=== PATIENT | female | born 1965 | race American Indian/Alaskan Native ===

== ENCOUNTER 2018-12-20 18:54 | Emergency (ER) | payer SELFPAY ==
[2018-12-20 18:54] VITALS: BMI 64.4
[2018-12-20 19:31] VITALS: RESP 18; TEMP 98.6
--- NOTE | 2018-12-20 19:34 | ED PDOC ---
Arrival/HPI - General Chief Complaint: Trauma Time Seen by Provider: 12/20/18 19:22 Historian: Patient - History of Present Illness Narrative History of Present Illness (Text): 12/20/18 19:33 53 y/o F with h/o asthma, COPD, with attacks every 3-4 months, never intubated, active tobacco abuse, NIDDM, and Sleep apnea, presents to the ED for evaluation of bilateral knee discomfort s/p fall 2 days ago. Patient informs mechanical f all Wednesday on her legs with injury to her head and back. Patient denies any loss of consciousness at the time. Patient reports appropriate ambulation following the incident. Patient denies any other associated somatic complaints. Patient denies any fevers, chills, headache, dizziness, chest pain, shortness of breath, dyspnea on exertion, cough, abdominal pain, nausea, vomiting, diarrhea, back pain, neck pain, or any other complaint. Patient states she lives with her daughter and granddaughter in [facility]. Time/Duration: < week Symptom Onset: Gradual Symptom Course: Unchanged Activities at Onset: Light Context: Home Past Medical History - Provider Review Nursing Documentation Reviewed: Yes - Infectious Disease Hx of Infectious Diseases: None - Tetanus Immunization Tetanus Immunization: Unknown - Reproductive Currently : Unknown - Cardiac Hx Cardiac Disorders: Yes Hx Congestive Heart Failure: Yes - Pulmonary Hx Respiratory Disorders: Yes Hx Asthma: Yes Hx Bronchitis: Yes Hx Chronic Obstructive Pulmonary Disease (COPD): Yes Hx Sleep Apnea: Yes - Musculoskeletal/Rheumatological Hx Falls: No - Psychiatric Hx Depression: No Hx Emotional Abuse: No Hx Physical Abuse: No Hx Substance Use: No - Suicidal Assessment Feels Threatened In Home Enviroment: No Family/Social History - Physician Review Nursing Documentation Reviewed: Yes Family/Social History: No Known Family HX Smoking Status: Light Smoker < 10 Cigarettes Daily Hx Alcohol Use: No Hx Substance Use: No Allergies/Home Meds Allergies/Adverse Reactions: Allergies No Known Allergies Allergy (Verified 12/22/13 17:23) Home Medications: Home Meds Medication Instructions Recorded Confirmed Albuterol 0.09 mg IH Q4 12/22/13 12/22/13 Metformin Hydrochloride [Metformin] 500 mg PO BID 12/22/13 12/22/13 Review of Systems - Physician Review All systems were reviewed & negative as marked: Yes - Review of Systems Constitutional: absent: Fevers Eyes: absent: Vision Changes, Photophobia ENT: absent: Hearing Changes Respiratory: absent: SOB, Cough Cardiovascular: absent: Chest Pain Gastrointestinal: absent: Abdominal Pain, Diarrhea, Nausea, Vomiting Genitourinary Female: absent: Dysuria, Urine Output Changes Musculoskeletal: Arthralgias (Bilateral knee discomfort). absent: Back Pain, Neck Pain Skin: absent: Rash Neurological: absent: Headache, Dizziness Psychiatric: absent: Anxiety Physical Exam Vital Signs Reviewed: Yes Vital Signs Temp Pulse Resp BP Pulse Ox 12/20/18 19:24 98.6 F 106 H 18 93/58 L 93 L Temperature: Afebrile Blood Pressure: Hypotensive Pulse: Tachycardic Respiratory Rate: Normal Appearance: Positive for: Non-Toxic, Comfortable, Other (Morbidly obese) Pain Distress: None Mental Status: Positive for: Alert and Oriented X 3 - Systems Exam Head: Present: Atraumatic, Normocephalic Pupils: Present: PERRL Conjunctiva: Present: Normal Nose (Internal): Present: Normal Inspection Neck: Present: Normal Range of Motion. No: Meningeal Signs, MIDLINE TENDERNESS Respiratory/Chest: Present: Clear to Auscultation, Good Air Exchange. No: Respiratory Distress, Accessory Muscle Use Cardiovascular: Present: Regular Rate and Rhythm, Normal S1, S2. No: Murmurs Abdomen: No: Tenderness, Distention, Peritoneal Signs Back: Present: Normal Inspection. No: CVA Tenderness, Midline Tenderness, Paraspinal Tenderness Upper Extremity: Present: Normal Inspection. No: Cyanosis, Edema Lower Extremity: Present: NORMAL PULSES, Tenderness (anterior right knee tenderness), Neurovascularly Intact, Other (negative thompsons). No: Edema Neurological: Present: GCS=15, CN II-XII Intact, Speech Normal Skin: Present: Warm, Dry, Normal Color. No: Rashes Psychiatric: Present: Alert, Oriented x 3, Normal Insight, Normal Concentration Medical Decision Making ED Course and Treatment: 12/20/18 19:46 Impression: 53 year old female presents to the ED complaining of bilateral knee discomfort s/p fall. N/V intact to b/l LE. No complaints of hip or ankle pain. No abrasions noted. Pt noted mild ARMENTA. No blood thinner however and pt with normal neuro exam. Walking well in NAD. Plan: -- Tylenol -- X-ray of right knee -- X-ray of left knee -- Reassess and disposition Prior Visits: Notes and results from previous visits were reviewed. Progress Notes: 12/20/18 20:44 Xray unremarkable per my read pain well controlled per pt, walking well Repeat neuro exam unremarkable, remains n/v intact in b/l LE Disposition/Present on Arrival - Present on Arrival Any Indicators Present on Arrival: No History of DVT/PE: No History of Uncontrolled Diabetes: No Urinary Catheter: No History of Decub. Ulcer: No History Surgical Site Infection Following: None - Disposition Have Diagnosis and Disposition been Completed?: Yes Diagnosis: Fall, Knee pain, bilateral Disposition Time: 20:49 Patient Problems: Current Active Problems Problem Status Onset Fall Acute Knee pain, bilateral Acute Condition: GOOD Discharge Instructions (ExitCare): Preventing Falls in the Older Adult, Getting Up From a Fall, Knee Pain (DC) Additional Instructions: MARY WHITTAKER, thank you for letting us take care of you today. Your provider was Tank Nicole and you were treated for FALL. The emergency medical care you received today was directed at your acute symptoms. If you were prescribed any medication, please fill it and take as directed. It may take several days for your symptoms to resolve. Return to the Emergency Department if your symptoms worsen, do not improve, or if you have any other problems. Please contact your doctor or call one of the physicians/clinics you have been referred to that are listed on the Patient Visit Information form that is includ ed in your discharge packet. Bring any paperwork you were given at discharge with you along with any medications you are taking to your follow up visit. Our treatment cannot replace ongoing medical care by a primary care provider outside of the emergency department. Thank you for allowing the [facility] team to be part of your care today. If you had an X-Ray or CT scan: A Radiologist will review the ED reading if any change in treatment is needed we will contact you. If you had a blood, urine, or wound culture: It will take several days for the results, if any change in treatment is needed we will contact you. If you had an STI test: It will take 48 hours for the results. Please call after 1 week if you have not heard back. Referrals: Chelo Villalpando MD [Medical Doctor] - Follow up with [facility] [Outside] - Follow up with [facility] [Outside] - Follow up with primary [facility] [Outside] - Follow up with primary Forms: Qinti (Icelandic)
[2018-12-20 21:24] VITALS: BP 110/68; PULSE 89; O2SAT 95
--- NOTE | 2018-12-21 08:00 | RAD ---
Date of service: 12/20/2018 PROCEDURE: Left Knee Radiographs. HISTORY: Pain. COMPARISON: None. FINDINGS: BONES: No acute fracture or destructive bony lesion identified. JOINTS: No subluxation or dislocation. Gross joint space narrowing seen at the patellofemoral and medial femorotibial compartments with osteophyte development appear prominent in all 3 joint compartments compatible with advanced osteoarthritis. JOINT EFFUSION: None. OTHER FINDINGS: None. IMPRESSION: Advanced tricompartmental osteoarthritis. No acute fracture or dislocation identified.
--- NOTE | 2018-12-21 08:01 | RAD ---
Date of service: 12/20/2018 PROCEDURE: Right Knee Radiographs. HISTORY: fall COMPARISON: None. FINDINGS: BONES: No acute fracture or destructive bony lesion identified. JOINTS: Marked joint space narrowing, articular cortical sclerosis and osteophyte development is seen all 3 joint compartments compatible with advanced osteoarthritis. JOINT EFFUSION: None. OTHER FINDINGS: None. IMPRESSION: Advanced tricompartmental osteoarthritis. No acute fracture dislocation appreciated.
== END 2018-12-20 20:55 | disposition home or self-care (01) ==
LOC: ED 18:54
DX: M25.561 Pain in right knee (principal); M25.562 Pain in left knee; F17.210 Nicotine dependence, cigarettes, uncomplicated

== ENCOUNTER 2019-01-25 01:31 | Inpatient (IN) | payer MEDICAID, OTHER ==
--- NOTE | 2019-01-25 02:06 | ED PDOC ---
Arrival/HPI - General Chief Complaint: Lower Extremity Problem/Injury Time Seen by Provider: 01/25/19 01:53 Historian: Patient - History of Present Illness Narrative History of Present Illness (Text): 01/25/19 01:59 Cece Saleem is a 53 year old female, whose past medical history includes asthma, COPD, diabetes, sleep apnea, and morbid obesity, who presents to the emergency department brought in by EMS complaining of leg swelling. Patient reports she has been experiencing lower extremity swelling for the past few days and notes yesterday her left leg gave out from under her. Patient states she has been unable to ambulate. Patient also notes ulcers to her right ankle. Patient states she does not currently have a PMD and has not taken any of her medications in "a while." Patient denies any fever, chills, chest pain, sh ortness of breath, abdominal pain, nausea, vomiting, back pain, neck pain, headache, dizziness, or any other complaints. Symptom Onset: Gradual Symptom Course: Unchanged Activities at Onset: Light Context: Home Past Medical History - Provider Review Nursing Documentation Reviewed: Yes - Infectious Disease Hx of Infectious Diseases: None - Tetanus Immunization Tetanus Immunization: Unknown - Cardiac Hx Cardiac Disorders: Yes Hx Congestive Heart Failure: Yes Hx Hypertension: Yes - Pulmonary Hx Respiratory Disorders: Yes Hx Asthma: Yes Hx Bronchitis: Yes Hx Chronic Obstructive Pulmonary Disease (COPD): Yes Hx Sleep Apnea: Yes - Endocrine/Metabolic Hx Diabetes Mellitus Type 2: Yes - Musculoskeletal/Rheumatological Hx Falls: No - Psychiatric Hx Depression: No Hx Emotional Abuse: No Hx Physical Abuse: No Hx Substance Use: No - Surgical History Hx Section: Yes (x2) - Anesthesia Hx Anesthesia: No - Suicidal Assessment Feels Threatened In Home Enviroment: No Family/Social History - Physician Review Nursing Documentation Reviewed: Yes Family/Social History: Unknown Family HX Smoking Status: Current Some Days Smoker Hx Alcohol Use: No Hx Substance Use: No Allergies/Home Meds Allergies/Adverse Reactions: Allergies No Known Allergies Allergy (Verified 12/22/13 17:23) Home Medications: Home Meds Medication Instructions Recorded Confirmed Albuterol 0.09 mg IH Q4 12/22/13 12/22/13 Metformin Hydrochloride [Metformin] 500 mg PO BID 12/22/13 12/22/13 Review of Systems - Physician Review All systems were reviewed & negative as marked: Yes - Review of Systems Constitutional: Normal. absent: Fevers Eyes: Normal ENT: Normal Respiratory: Normal. absent: SOB, Cough Cardiovascular: Normal. absent: Chest Pain Gastrointestinal: Normal. absent: Abdominal Pain, Diarrhea, Nausea, Vomiting Genitourinary Female: Normal. absent: Dysuria, Frequency, Hematuria, Urine Output Changes Musculoskeletal: Other (+bilateral leg swelling) Skin: Normal. absent: Rash Neurological: Normal. absent: Headache, Dizziness Endocrine: Normal Hemo/Lymphatic: Normal Psychiatric: Normal Physical Exam Vital Signs Reviewed: Yes Vital Signs Temp Pulse Resp BP Pulse Ox 01/25/19 01:37 98.2 F 106 H 21 136/71 99 Temperature: Afebrile Blood Pressure: Normal Pulse: Regular Respiratory Rate: Normal Appearance: Positive for: Non-Toxic, Other (Morbidly obese) Pain Distress: None Mental Status: Positive for: Alert and Oriented X 3 - Systems Exam Head: Present: Atraumatic, Normocephalic Pupils: Present: PERRL Extroacular Muscles: Present: EOMI Conjunctiva: Present: Normal Mouth: Present: Moist Mucous Membranes Neck: Present: Normal Range of Motion Respiratory/Chest: Present: Clear to Auscultation, Good Air Exchange. No: Respiratory Distress, Accessory Muscle Use Cardiovascular: Present: Regular Rate and Rhythm, Normal S1, S2. No: Murmurs Abdomen: No: Tenderness, Distention, Peritoneal Signs Back: Present: Normal Inspection Upper Extremity: Present: Normal Inspection. No: Cyanosis, Edema Lower Extremity: Present: Swelling (Bilateral swelling to bilateral lower extremities with skin scaling), Other (Ulcers to right ankle). No: Edema Neurological: Present: GCS=15, CN II-XII Intact, Speech Normal Skin: Present: Warm, Dry, Normal Color. No: Rashes Psychiatric: Present: Alert, Oriented x 3, Normal Insight, Normal Concentration Medical Decision Making ED Course and Treatment: 01/25/19 01:59 Impression: 53 year old female complaining of bilateral lower extremity swelling and ulcers to her right ankle. Plan: -- US Duplex Lower Extremties -- EKG -- CXR -- Labs, troponin -- Urinalysis, urine cultures -- Reassess and disposition Progress Notes: 01/25/19 02:30 Reviewed radiology, CXR shows no acute processes. US Duplex Lower Extremities preliminary read negative for DVT. 01/25/19 03:15 Case discussed with medical dir retort condenser attendant, who is aware and agrees with plan. Case discussed with Dr. Villalpando, who is aware and agrees with plan. Accepts pt in to hospitalist service. Pt admitted to [facility] for lower extremity cellulitis. 01/25/19 04:00 Reviewed EKG, sinus tachycardia at [address]-segment elevations or depressions, no T-wave inversions, normal intervals. - Lab Interpretations I have reviewed the lab results: Yes - RAD Interpretation Mold Yard Supervisor: ED Physician - EKG Interpretation Interpreted by ED Physician: Yes Type: 12 lead EKG - Scribe Statement The provider has reviewed the documentation as recorded by the Chan Chávez Provider Scribe Attestation: All medical record entries made by the Scribe were at my direction and personally dictated by me. I have reviewed the chart and agree that the record accurately reflects my personal performance of the history, physical exam, medical decision making, and the department course for this patient. I have also personally directed, reviewed, and agree with the discharge instructions and disposition. Disposition/Present on Arrival - Present on Arrival Any Indicators Present on Arrival: No History of DVT/PE: No History of Uncontrolled Diabetes: No Urinary Catheter: No History of Decub. Ulcer: No History Surgical Site Infection Following: None - Disposition Have Diagnosis and Disposition been Completed?: Yes Diagnosis: Cellulitis of both lower extremities Disposition: HOSPITALIZED Disposition Time: 03:15 Condition: FAIR
[2019-01-25 02:52] LABS: BASO # 0.01 K/mm3 (0.0-2.0); BASO % 0.1 % (0.0-3.0); EOS # 0.3 (0.0-0.7); EOS % 2.8 % (1.5-5.0); HEMOGLOBIN 12.2 g/dL (12.0-16.0); LYMPH # 0.7 (1.2-3.4); MEAN CELL VOLUME 81.1 fl (80.0-105.0); MEAN CORPUSCULAR HEMOGLOBIN 24.5 pg (25.0-35.0); MEAN CORPUSCULAR HGB CONC 30.2 g/dl (31.0-37.0); MONO # 1.1 (0.1-0.6); MONO % 10.7 % (1.0-6.0); RBC 4.98 10^6/uL (3.5-6.1); RED CELL DISTRIBUTION WIDTH 17.8 % (11.5-14.5); WHITE BLOOD COUNT 10.2 10^3/uL (4.5-11.0)
[2019-01-25 02:53] LABS: ALB/GLOB RATIO 0.9 (1.1-1.8); ALBUMIN 3.8 g/dL (3.0-4.8); BLOOD UREA NITROGEN 10 mg/dL (7-21); CALCIUM 9.1 mg/dL (8.4-10.5); GFR NON-AFRICAN AMERICAN > 60
[2019-01-25 02:55] LABS: INR 1.26; PARTIAL THROMBOPLASTIN TIME 39.3 Seconds (26.9-38.3)
[2019-01-25 02:56] LABS: ALT/SGPT 17 U/L (7-56); AST/SGOT 29 U/L (14-36)
[2019-01-25 03:04] LABS: TROPONIN I < 0.01 ng/mL
[2019-01-25] MEDS ORDERED: Piperacillin/Tazobact 3.375 gm 100 ML IVPB STA (03:10)
[2019-01-25] MEDS ORDERED: Vancomycin 1gm in NS 250ml 1 GM/250 ML BAG IVPB STA (03:10)
[2019-01-25] MEDS ORDERED: Levalbuterol 1.25 MG/3 ML Inhal Soln UD IH PRN (03:28)
[2019-01-25] MEDS ORDERED: Dextrose 50% SYRINGE Inj (50 ml) IV PRN (03:29)
--- NOTE | 2019-01-25 03:36 | CP.PCM.HP ---
<Khadar Kim - Last Filed: 01/25/19 05:04> History of Present Illness - History of Present Illness History of Present Illness: Khadar Kim DO, PGY-1 Hospitalist Admission History and Physical for Dr. Villalpando CC: LE swelling/redness/pain HPI: Patient is a 53 year old female with PMH of COPD, WINTER, BMI of 64, and DM2 (last A1c 6.9) presents with a complaint of b/l LE swelling and redness worsening over the past 3 days. She states that yesterday her R leg gave out and she almost fell. She states it has been difficult to ambulate because of the increased swelling and pain. She states she is normally able to ambulate and that her assists her at home with some ADLs. She states she has not seen a primary care physician in over a year because she no longer has insurance. She admits to non-compliance with DM2 and COPD medications because she cannot afford these medications. She reports chronic SOB with exertion but denies fever/chills, CP, cough, abd pain/nausea/vomiting, or urinary complaints. 12 point ROS was otherwise negative except as specified above. PMD: none Past Medical History: COPD, WINTER, BMI of 64, and DM2 (last A1c 6.9) Past Surgical History: none Allergies: NKA Home medications: previously took metformin 500 mg BID but has not taken it c onsistently for years Family History: reviewed, non-contributory Social History: admits to smoking 1 PPD for the past 30 years, denies alcohol or illicit drug use Present on Admission - Present on Admission Any Indicators Present on Admission: Yes History of DVT/PE: No History of Uncontrolled Diabetes: Yes Urinary Catheter: No Decubitus Ulcer Present: Yes Past Patient History - Infectious Disease Hx of Infectious Diseases: None - Tetanus Immunizations Tetanus Immunization: Unknown - Past Social History Smoking Status: Current Some Days Smoker - CARDIAC Hx Cardiac Disorders: Yes Hx Congestive Heart Failure: Yes Hx Hypertension: Yes - PULMONARY Hx Respiratory Disorders: Yes Hx Asthma: Yes Hx Bronchitis: Yes Hx Chronic Obstructive Pulmonary Disease (COPD): Yes Hx Sleep Apnea: Yes - ENDOCRINE/METABOLIC Hx Diabetes Mellitus Type 2: Yes - MUSCULOSKELETAL/RHEUMATOLOGICAL Hx Falls: No - PSYCHIATRIC Hx Depression: No Hx Emotional Abuse: No Hx Physical Abuse: No Hx Substance Use: No - SURGICAL HISTORY Hx Section: Yes (x2) - ANESTHESIA Hx Anesthesia: No Meds Allergies/Adverse Reactions: Allergies Allergy/AdvReac Type Severity Reaction Status Date / Time No Known Allergies Allergy Verified 12/22/13 17:23 Physical Exam - Constitutional Appears: Unkempt, Chronically Ill Additional comments: morbidly obese, appears uncomfortable - Head Exam Head Exam: ATRAUMATIC, NORMOCEPHALIC - Eye Exam Eye Exam: EOMI, PERRL. absent: Scleral icterus - ENT Exam ENT Exam: Mucous Membranes Dry - Neck Exam Neck exam: Negative for: Lymphadenopathy Additional comments: thick neck - Respiratory Exam Respiratory Exam: Wheezes (faint end expiratory wheezes b/l). absent: Accessory Muscle Use, Rales, Rhonchi, Respiratory Distress - Cardiovascular Exam Cardiovascular Exam: REGULAR RHYTHM, RRR, +S1, +S2. absent: Diastolic murmur, Gallop, Rubs, Systolic Murmur - GI/Abdominal Exam GI & Abdominal Exam: Mass (mass palpated R mid abdominal region), Normal Bowel Sounds, Tenderness (diffuse tenderness to palpation). absent: Guarding Additional comments: Obese with striae, R sided wound under abdominal folds - Exam External exam: Erythema, Lesions Additional comments: Suprapubic region appears edematous, R-sided foul smelling discharge between R abdomen and leg - Extremities Exam Extremities exam: Positive for: pedal edema (b/l pitting edema), tenderness (diffusely tender to palpation of b/l LE), pedal pulses present. Negative for: full ROM Additional comments: Wound seen on R medial foot approximately 1 cm, R lateral foot wound 3-4 cm, wound on posterior R thigh measures approximately 1 cm. Diffuse xerosis cutis b/l. Poor hygiene. Venous stasis dermatitis. - Neurological Exam Neurological exam: Alert, Oriented x3 - Psychiatric Exam Psychiatric exam: Anxious - Skin Skin Exam: Erythema, Rash (b/l LE) Results - Vital Signs Recent Vital Signs: Last Vital Signs Temp 98.2 F 01/25/19 01:37 Pulse 106 H 01/25/19 01:37 Resp 21 01/25/19 01:37 BP 136/71 01/25/19 01:37 Pulse Ox 99 01/25/19 01:37 - Labs Result Diagrams: 01/25/19 02:23 01/25/19 02:23 Labs: Laboratory Results - last 24 hr 01/25/19 01/25/19 01/25/19 02:23 02:23 02:23 WBC 10.2 RBC 4.98 Hgb 12.2 Hct 40.4 MCV 81.1 MCH 24.5 L MCHC 30.2 L RDW 17.8 H Plt Count 208 MPV 10.0 Neut % (Auto) 79.4 H Lymph % (Auto) 7.0 L [place] % (Auto) 10.7 H Eos % (Auto) 2.8 Baso % (Auto) 0.1 Lymph # (Auto) 0.7 L [place] # (Auto) 1.1 H Eos # (Auto) 0.3 Baso # (Auto) 0.01 Absolute Neuts (auto) 8.11 H PT 14.0 H INR 1.26 APTT 39.3 H Sodium 137 Potassium 3.6 Chloride 96 L Carbon Dioxide 35 H Anion Gap 9 L BUN 10 Creatinine 0.9 Est GFR ( Amer) > 60 Est GFR (Non-Af Amer) > 60 Random Glucose 180 H Calcium 9.1 Total Bilirubin 0.8 AST 29 ALT 17 Alkaline Phosphatase 110 Troponin I < 0.01 Total Protein 7.9 Albumin 3.8 Globulin 4.2 Albumin/Globulin Ratio 0.9 L Assessment & Plan - Assessment and Plan (Free Text) Assessment: 53 yo F with PMH of COPD, WINTER, BMI of 64, and DM2 (last A1c 6.9) presents with worsening b/l LE edema, erythema presents with inability to ambulate because of LE swelling. She is admitted for management of b/l LE cellulitis/wounds. Plan: B/l LE Cellulitis Afebrile, no leukocytosis but wounds are non-healing Received one dose of vanc/zosyn in ED F/u blood, urine, wound cx. Wound care consult placed, all recs appreciated Podiatry consult placed for foot care/management of 2 foot ulcers, all recs appreciated F/u procal, TSH, vitamin D levels B/l LE doppler US preliminary read negative for DVT, confirm official read ID consult placed, all recs appreciated Foot/posterior thigh ulcers F/u wound cx x 3 Wound care consult placed, all recs appreciated Poorly controlled DM2 ISS while admitted F/u A1c result COPD Xopenex PRN for SOB No active issues WINTER Likely has component of obesity hypoventilation syndrome Has not used CPAP or other device regularly Pulmonology consult placed, all recs appreciated Tobacco abuse Nicotine patch PRN Advise patient regularly on importance of abstinence BMI 64 [employer] Consultant referral placed, all recs appreciated Will need counseling regarding importance of weight loss DVT/GI PPX: Lovenox/protonix Full Code HH, diabetic diet Monitor on med/surg Patient seen, examined with, and plan discussed with my attending Dr. Irasema Kim D.O. IM Resident PGY-1 <Chelo Villalpando - Last Filed: 01/25/19 07:29> Results - Vital Signs Recent Vital Signs: Last Vital Signs Temp 98.2 F 01/25/19 01:37 Pulse 107 H 01/25/19 04:59 Resp 20 01/25/19 04:59 BP 118/63 01/25/19 04:00 Pulse Ox 96 01/25/19 04:00 - Labs Result Diagrams: 01/25/19 02:23 01/25/19 02:23 Labs: Laboratory Results - last 24 hr 01/25/19 01/25/19 01/25/19 02:23 02:23 02:23 WBC 10.2 RBC 4.98 Hgb 12.2 Hct 40.4 MCV 81.1 MCH 24.5 L MCHC 30.2 L RDW 17.8 H Plt Count 208 MPV 10.0 Neut % (Auto) 79.4 H Lymph % (Auto) 7.0 L Oxford % (Auto) 10.7 H Eos % (Auto) 2.8 Baso % (Auto) 0.1 Lymph # (Auto) 0.7 L Oxford # (Auto) 1.1 H Eos # (Auto) 0.3 Baso # (Auto) 0.01 Absolute Neuts (auto) 8.11 H PT 14.0 H INR 1.26 APTT 39.3 H Sodium 137 Potassium 3.6 Chloride 96 L Carbon Dioxide 35 H Anion Gap 9 L BUN 10 Creatinine 0.9 Est GFR ( Amer) > 60 Est GFR (Non-Af Amer) > 60 Random Glucose 180 H Calcium 9.1 Phosphorus Magnesium Total Bilirubin 0.8 AST 29 ALT 17 Alkaline Phosphatase 110 Troponin I < 0.01 Total Protein 7.9 Albumin 3.8 Globulin 4.2 Albumin/Globulin Ratio 0.9 L Triglycerides Cholesterol LDL Cholesterol Direct HDL Cholesterol 01/25/19 02:23 WBC RBC Hgb Hct MCV MCH MCHC RDW Plt Count MPV Neut % (Auto) Lymph % (Auto) Oxford % (Auto) Eos % (Auto) Baso % (Auto) Lymph # (Auto) Oxford # (Auto) Eos # (Auto) Baso # (Auto) Absolute Neuts (auto) PT INR APTT Sodium Potassium Chloride Carbon Dioxide Anion Gap BUN Creatinine Est GFR ( Amer) Est GFR (Non-Af Amer) Random Glucose Calcium Phosphorus 3.6 Magnesium 2.2 Total Bilirubin AST ALT Alkaline Phosphatase Troponin I Total Protein Albumin Globulin Albumin/Globulin Ratio Triglycerides 70 Cholesterol 143 LDL Cholesterol Direct 75 HDL Cholesterol 35 Attending/Attestation - Attestation I have personally seen and examined this patient.: Yes I have fully participated in the care of the patient.: Yes I have reviewed all pertinent clinical information: Yes Notes (Text): 01/25/19 07:25 Pt seen with the resident by the bedside. Case discussed in detail. Agree with documentation,assessment and plan of treatment.
[2019-01-25] MEDS: Pantoprazole 40 mg EC Tab PO SCH (05:07)
[2019-01-25] MEDS: Sodium Chloride 0.9% 1,000 ML IV SCH (05:10)
[2019-01-25 06:28] VITALS: BMI 63.6
[2019-01-25] MEDS: Insulin Lispro (humaLOG) MEDIUM Coverage SC SCH ×4 (07:30→22:09)
--- NOTE | 2019-01-25 09:28 | CARD ---
APPROVED REPORT Date of service: 01/25/2019 EKG Measurement Heart [id number] <Conclusion> Sinus tachycardia Low voltage QRS Borderline ECG
[2019-01-25 09:35] LABS: ARTERIAL BLOOD GAS HCO3 29.7 mmol/L (21-28); ARTERIAL BLOOD GAS HEMOGLOBIN 12.3 g/dL (11.7-17.4); ARTERIAL BLOOD GAS O2 CAPACITY 16.2 mL/dl (16-24); ARTERIAL BLOOD GAS O2 CONTENT 15.2 ML/dl (15-23); ARTERIAL BLOOD GAS O2 SAT 93.7 % (95-98); ARTERIAL BLOOD GAS PCO2 49 mm/Hg (35-45); ARTERIAL BLOOD GAS PH 7.39 (7.35-7.45); ARTERIAL BLOOD GAS TCO2 31.2 mmol.L (22-28)
--- NOTE | 2019-01-25 11:02 | RAD ---
Date of service: 01/25/2019 HISTORY: Shortness of breath. COMPARISON: 12/22/2013. FINDINGS: LUNGS: No active pulmonary disease. PLEURA: No significant pleural effusion identified, no pneumothorax apparent. CARDIOVASCULAR: No atherosclerotic calcification present Normal. OSSEOUS STRUCTURES: No significant abnormalities. VISUALIZED UPPER ABDOMEN: Normal. OTHER FINDINGS: None. IMPRESSION: No active disease. No significant interval change compared to the prior examination(s).
[2019-01-25] MEDS ORDERED: Oxycodone/Acetaminophen 5/325 mg Tab PO ONE (11:30)
[2019-01-25] MEDS: Vancomycin 1gm in NS 250ml 1 GM/250 ML BAG IVPB SCH ×2 (11:34→21:17)
[2019-01-25] MEDS: Enoxaparin 40 mg Syringe SC SCH (11:43)
[2019-01-25] MEDS: Nystatin 100,000 Units/gm Topical Pow(15 gm) TOP SCH (12:46)
--- NOTE | 2019-01-25 13:55 | CP.PCM.CON ---
History of Present Illness - History of Present Illness History of Present Illness: PULMONARY CONSULT NOTE REASON FOR CONSULT: WINTER, OHS HPI Patient is 53yo female with PMHx of morbid obesity, BMI>60, COPD, WINTER, OHS, non compliant with CPAP, active smoker 1/2pk per day, presented with worsening LE edema. Pt reports she has not seen a physician in over year, has not taken any medications, and has been non compliant with CPAP; actively smoking. Pt reports she has gained 40-50lbs over the last year, and does not use her CPAP machine because of "malfunction with tubing" Denies fever, chills, cough, CP, palpitations, ARMENTA, dizziness. No other constitutional symptoms. PMhx as above PSHx as above Meds NONE FHx NC Social smokes 1/2pk per day, denies EtOH, drug use ROS as above Review of Systems - Review of Systems Review of Systems: As per HPI Past Patient History - Infectious Disease Hx of Infectious Diseases: None - Tetanus Immunizations Tetanus Immunization: Unknown - Past Social History Smoking Status: Current Some Days Smoker - CARDIAC Hx Cardiac Disorders: Yes Hx Congestive Heart Failure: Yes Hx Hypertension: Yes - PULMONARY Hx Chronic Obstructive Pulmonary Disease (COPD): Yes - NEUROLOGICAL Hx Neurological Disorder: No - HEENT Hx HEENT Problems: No - RENAL Hx Chronic Kidney Disease: No - ENDOCRINE/METABOLIC Hx Diabetes Mellitus Type 2: Yes - HEMATOLOGICAL/ONCOLOGICAL Hx Blood Disorders: No - INTEGUMENTARY Hx Dermatological Problems: No - MUSCULOSKELETAL/RHEUMATOLOGICAL Hx Falls: No - GASTROINTESTINAL Hx Gastrointestinal Disorders: No - GENITOURINARY/GYNECOLOGICAL Hx Genitourinary Disorders: No - PSYCHIATRIC Hx Depression: No Hx Emotional Abuse: No Hx Physical Abuse: No Hx Substance Use: No - SURGICAL HISTORY Hx Section: Yes (x2) - ANESTHESIA Hx Anesthesia: No Meds Allergies/Adverse Reactions: Allergies Allergy/AdvReac Type Severity Reaction Status Date / Time No Known Allergies Allergy Verified 12/22/13 17:23 - Medications Medications: Current Medications Acetaminophen (Tylenol 325mg Tab) 650 mg PO Q6H PRN PRN Reason: Pain, Mild (1-3) Last Admin: 01/25/19 05:08 Dose: 650 mg Dextrose (Dextrose 50% Inj) 0 ml IV STAT PRN; Protocol PRN Reason: Hypoglycemia Protocol Enoxaparin Sodium (Lovenox) 40 mg SC DAILY [facility]; Protocol Last Admin: 01/25/19 11:43 Dose: 40 mg Dextrose (Dextrose 5% In Water 1000 Ml) 1,000 mls @ 0 mls/hr IV .Q0M PRN; Protocol PRN Reason: Hypoglycemia Protocol Sodium Chloride (Sodium Chloride 0.9%) 1,000 mls @ 100 mls/hr IV .Q10H [facility] Last Admin: 01/25/19 05:10 Dose: 100 mls/hr Vancomycin HCl (Vancomycin 1gm) 1 gm in 250 mls @ 167 mls/hr IVPB Q12H [facility]; Protocol Last Admin: 01/25/19 11:34 Dose: 167 mls/hr Piperacillin Sod/Tazobactam Sod (Zosyn 3.375 In Ns 100ml) 100 mls @ 25 mls/hr IVPB Q8 [facility]; Protocol Stop: 01/26/19 01:59 Ibuprofen (Motrin Tab) 600 mg PO Q6H PRN PRN Reason: Pain, moderate (4-7) Insulin Human Lispro (Humalog Med) 0 units SC ACHS [facility]; Protocol Last Admin: 01/25/19 11:43 Dose: 1 unit Levalbuterol HCl (Xopenex) 1.25 mg IH Q2H PRN PRN Reason: Shortness of Breath Last Admin: 01/25/19 05:10 Dose: 1.25 mg Nicotine (Nicoderm Cq) 1 patch TD DAILY PRN PRN Reason: URGE TO SMOKE Nystatin (Nystop Topical Powder) 0 gm TOP BID [facility] Last Admin: 01/25/19 12:46 Dose: 1 applic Ondansetron HCl (Zofran Inj) 4 mg IVP Q6H PRN PRN Reason: Nausea/Vomiting Pantoprazole Sodium (Protonix Ec Tab) 40 mg PO 0600 [facility] Last Admin: 01/25/19 05:07 Dose: 40 mg Physical Exam - Constitutional Appears: Non-toxic, No Acute Distress, Chronically Ill - Head Exam Head Exam: NORMAL INSPECTION - Eye Exam Eye Exam: Normal appearance - ENT Exam ENT Exam: Mucous Membranes Moist - Neck Exam Neck exam: Positive for: Full Rom - Respiratory Exam Respiratory Exam: Clear to Auscultation Bilateral, NORMAL BREATHING PATTERN - Cardiovascular Exam Cardiovascular Exam: REGULAR RHYTHM, +S1, +S2 - GI/Abdominal Exam GI & Abdominal Exam: Normal Bowel Sounds, Soft - Extremities Exam Extremities exam: Positive for: normal inspection - Neurological Exam Neurological exam: Alert, Oriented x3 - Psychiatric Exam Psychiatric exam: Normal Affect - Skin Skin Exam: Normal Color, Warm Results - Vital Signs Recent Vital Signs: Last Vital Signs Temp 98.8 F 01/25/19 06:00 Pulse 107 H 01/25/19 06:00 Resp 20 01/25/19 06:00 BP 116/72 01/25/19 06:00 Pulse Ox 93 L 01/25/19 06:00 - Labs Result Diagrams: 01/25/19 02:23 01/25/19 02:23 Labs: Laboratory Results - last 24 hr 01/25/19 01/25/19 01/25/19 02:23 02:23 02:23 WBC 10.2 RBC 4.98 Hgb 12.2 Hct 40.4 MCV 81.1 MCH 24.5 L MCHC 30.2 L RDW 17.8 H Plt Count 208 MPV 10.0 Neut % (Auto) 79.4 H Lymph % (Auto) 7.0 L Wirt % (Auto) 10.7 H Eos % (Auto) 2.8 Baso % (Auto) 0.1 Lymph # (Auto) 0.7 L [place]irt # (Auto) 1.1 H Eos # (Auto) 0.3 Baso # (Auto) 0.01 Absolute Neuts (auto) 8.11 H PT 14.0 H INR 1.26 APTT 39.3 H pCO2 pO2 HCO3 ABG pH ABG Total CO2 ABG O2 Saturation ABG O2 Content ABG Base Excess ABG Hemoglobin ABG Carboxyhemoglobin POC ABG HHb (Measured) ABG Methemoglobin ABG O2 Capacity Hgb O2 Saturation FiO2 Sodium 137 Potassium 3.6 Chloride 96 L Carbon Dioxide 35 H Anion Gap 9 L BUN 10 Creatinine 0.9 Est GFR ( Amer) > 60 Est GFR (Non-Af Amer) > 60 POC Glucose (mg/dL) Random Glucose 180 H Hemoglobin A1c Calcium 9.1 Phosphorus Magnesium Total Bilirubin 0.8 AST 29 ALT 17 Alkaline Phosphatase 110 Troponin I < 0.01 NT-Pro-B Natriuret Pep Total Protein 7.9 Albumin 3.8 Globulin 4.2 Albumin/Globulin Ratio 0.9 L Triglycerides Cholesterol LDL Cholesterol Direct HDL Cholesterol 25-OH Vitamin D Total TSH 3rd Generation 01/25/19 01/25/19 01/25/19 02:23 02:23 08:25 WBC RBC Hgb Hct MCV MCH MCHC RDW Plt Count MPV Neut % (Auto) Lymph % (Auto) Wirt % (Auto) Eos % (Auto) Baso % (Auto) Lymph # (Auto) Wirt # (Auto) Eos # (Auto) Baso # (Auto) Absolute Neuts (auto) PT INR APTT pCO2 pO2 HCO3 ABG pH ABG Total CO2 ABG O2 Saturation ABG O2 Content ABG Base Excess ABG Hemoglobin ABG Carboxyhemoglobin POC ABG HHb (Measured) ABG Methemoglobin ABG O2 Capacity Hgb O2 Saturation FiO2 Sodium Potassium Chloride Carbon Dioxide Anion Gap BUN Creatinine Est GFR ( Amer) Est GFR (Non-Af Amer) POC Glucose (mg/dL) Random Glucose Hemoglobin A1c 9.0 H Calcium Phosphorus 3.6 Magnesium 2.2 Total Bilirubin AST ALT Alkaline Phosphatase Troponin I NT-Pro-B Natriuret Pep Total Protein Albumin Globulin Albumin/Globulin Ratio Triglycerides 70 Cholesterol 143 LDL Cholesterol Direct 75 HDL Cholesterol 35 25-OH Vitamin D Total TSH 3rd Generation 2.01 01/25/19 01/25/19 01/25/19 08:25 09:15 11:16 WBC RBC Hgb Hct MCV MCH MCHC RDW Plt Count MPV Neut % (Auto) Lymph % (Auto) [place]irt % (Auto) Eos % (Auto) Baso % (Auto) Lymph # (Auto) Wirt # (Auto) Eos # (Auto) Baso # (Auto) Absolute Neuts (auto) PT INR APTT pCO2 49 H pO2 57.0 L HCO3 29.7 H ABG pH 7.39 ABG Total CO2 31.2 H ABG O2 Saturation 93.7 L ABG O2 Content 15.2 ABG Base Excess 3.8 H ABG Hemoglobin 12.3 ABG Carboxyhemoglobin 5.7 H POC ABG HHb (Measured) 5.9 H ABG Methemoglobin 0.8 ABG O2 Capacity 16.2 Hgb O2 Saturation 87.6 L FiO2 21.0 Sodium Potassium Chloride Carbon Dioxide Anion Gap BUN Creatinine Est GFR ( Amer) Est GFR (Non-Af Amer) POC Glucose (mg/dL) 165 H Random Glucose Hemoglobin A1c Calcium Phosphorus Magnesium Total Bilirubin AST ALT Alkaline Phosphatase Troponin I NT-Pro-B Natriuret Pep Total Protein Albumin Globulin Albumin/Globulin Ratio Triglycerides Cholesterol LDL Cholesterol Direct HDL Cholesterol 25-OH Vitamin D Total < 12.8 L TSH 3rd Generation 01/25/19 11:20 WBC RBC Hgb Hct MCV MCH MCHC RDW Plt Count MPV Neut % (Auto) Lymph % (Auto) Wirt % (Auto) Eos % (Auto) Baso % (Auto) Lymph # (Auto) Wirt # (Auto) Eos # (Auto) Baso # (Auto) Absolute Neuts (auto) PT INR APTT pCO2 pO2 HCO3 ABG pH ABG Total CO2 ABG O2 Saturation ABG O2 Content ABG Base Excess ABG Hemoglobin ABG Carboxyhemoglobin POC ABG HHb (Measured) ABG Methemoglobin ABG O2 Capacity Hgb O2 Saturation FiO2 Sodium Potassium Chloride Carbon Dioxide Anion Gap BUN Creatinine Est GFR ( Amer) Est GFR (Non-Af Amer) POC Glucose (mg/dL) Random Glucose Hemoglobin A1c Calcium Phosphorus Magnesium Total Bilirubin AST ALT Alkaline Phosphatase Troponin I NT-Pro-B Natriuret Pep 78.2 Total Protein Albumin Globulin Albumin/Globulin Ratio Triglycerides Cholesterol LDL Cholesterol Direct HDL Cholesterol 25-OH Vitamin D Total TSH 3rd Generation Assessment & Plan - Assessment and Plan (Free Text) Assessment: 53yo female with COPD, OHS, and WINTER WINTER OHS COPD Morbid Obesity LE edema Recommend: - supp o2 as needed, goal sat 90%, duonebs PRN - will need outpatient PFTs - CPAP, P=8, QHS - will need outpatient sleep titration study, given recent weight gain - nicotine patch - smoking cessation - nutrition consult - Follow up LE Duplex - Obtain ECHO - IV diuresis - DVT ppx
[2019-01-25] MEDS ORDERED: Piperacill/Tazo 4.5gm in NS 4.5 GM/100 ML BAG IVPB SCH (14:00)
--- NOTE | 2019-01-25 15:16 | CP.PCM.CON ---
History of Present Illness - History of Present Illness History of Present Illness: Infectious Disease Consultation: January 25, 2019 53yo female with PMHx of morbid obesity, BMI>60, COPD, WINTER, OHS, non compliant with CPAP, active smoker 1/2pk per day, presented with worsening LE edema. Pt s tates that she has not seen a physician in over year, has not taken any medications, and has been non compliant with CPAP; actively smoking. Pt reports she has gained 40-50lbs over the last year, and does not use her CPAP machine because of "malfunction with tubing". PMHx: morbid obesity, BMI>60, COPD, WINTER, OHS, non compliant with CPAP PSHx: none given Allergies: NKDA Social Hx: No EtOH, No illicit drug use Tobacco 1/2 ppd Active Medications Acetaminophen (Tylenol 325mg Tab) 650 mg PO Q6H PRN PRN Reason: Pain, Mild (1-3) Last Admin: 01/25/19 05:08 Dose: 650 mg Dextrose (Dextrose 50% Inj) 0 ml IV STAT PRN; Protocol PRN Reason: Hypoglycemia Protocol Enoxaparin Sodium (Lovenox) 40 mg SC DAILY [facility]; Protocol Last Admin: 01/25/19 11:43 Dose: 40 mg Dextrose (Dextrose 5% In Water 1000 Ml) 1,000 mls @ 0 mls/hr IV .Q0M PRN; Protocol PRN Reason: Hypoglycemia Protocol Sodium Chloride (Sodium Chloride 0.9%) 1,000 mls @ 100 mls/hr IV .Q10H [facility] Last Admin: 01/25/19 05:10 Dose: 100 mls/hr Vancomycin HCl (Vancomycin 1gm) 1 gm in 250 mls @ 167 mls/hr IVPB Q12H [facility]; Protocol Last Admin: 01/25/19 11:34 Dose: 167 mls/hr Piperacillin Sod/Tazobactam Sod (Zosyn 3.375 In Ns 100ml) 100 mls @ 25 mls/hr IVPB Q8 [facility]; Protocol Stop: 01/26/19 01:59 Ibuprofen (Motrin Tab) 600 mg PO Q6H PRN PRN Reason: Pain, moderate (4-7) Insulin Human Lispro (Humalog Med) 0 units SC ACHS [facility]; Protocol Last Admin: 01/25/19 11:43 Dose: 1 unit Levalbuterol HCl (Xopenex) 1.25 mg IH Q2H PRN PRN Reason: Shortness of Breath Last Admin: 01/25/19 05:10 Dose: 1.25 mg Nicotine (Nicoderm Cq) 1 patch TD DAILY PRN PRN Reason: URGE TO SMOKE Nystatin (Nystop Topical Powder) 0 gm TOP BID [facility] Last Admin: 01/25/19 12:46 Dose: 1 applic Ondansetron HCl (Zofran Inj) 4 mg IVP Q6H PRN PRN Reason: Nausea/Vomiting Pantoprazole Sodium (Protonix Ec Tab) 40 mg PO 0600 [facility] Last Admin: 01/25/19 05:07 Dose: 40 mg Family Hx: None given ROS: No fevers, chills, nausea, vomiting, diarrhea, headaches, dizziness, chest pain, abdominal pain, melena, hematuria, hematemesis, hematochezia, depression, anxiety Past Patient History - Infectious Disease Hx of Infectious Diseases: None - Tetanus Immunizations Tetanus Immunization: Unknown - Past Social History Smoking Status: Current Some Days Smoker - CARDIAC Hx Cardiac Disorders: Yes Hx Congestive Heart Failure: Yes Hx Hypertension: Yes - PULMONARY Hx Chronic Obstructive Pulmonary Disease (COPD): Yes - NEUROLOGICAL Hx Neurological Disorder: No - HEENT Hx HEENT Problems: No - RENAL Hx Chronic Kidney Disease: No - ENDOCRINE/METABOLIC Hx Diabetes Mellitus Type 2: Yes - HEMATOLOGICAL/ONCOLOGICAL Hx Blood Disorders: No - INTEGUMENTARY Hx Dermatological Problems: No - MUSCULOSKELETAL/RHEUMATOLOGICAL Hx Falls: No - GASTROINTESTINAL Hx Gastrointestinal Disorders: No - GENITOURINARY/GYNECOLOGICAL Hx Genitourinary Disorders: No - PSYCHIATRIC Hx Depression: No Hx Emotional Abuse: No Hx Physical Abuse: No Hx Substance Use: No - SURGICAL HISTORY Hx Section: Yes (x2) - ANESTHESIA Hx Anesthesia: No Meds Allergies/Adverse Reactions: Allergies Allergy/AdvReac Type Severity Reaction Status Date / Time No Known Allergies Allergy Verified 12/22/13 17:23 - Medications Medications: Current Medications Acetaminophen (Tylenol 325mg Tab) 650 mg PO Q6H PRN PRN Reason: Pain, Mild (1-3) Last Admin: 01/25/19 05:08 Dose: 650 mg Dextrose (Dextrose 50% Inj) 0 ml IV STAT PRN; Protocol PRN Reason: Hypoglycemia Protocol Enoxaparin Sodium (Lovenox) 40 mg SC DAILY [facility]; Protocol Last Admin: 01/25/19 11:43 Dose: 40 mg Dextrose (Dextrose 5% In Water 1000 Ml) 1,000 mls @ 0 mls/hr IV .Q0M PRN; Protocol PRN Reason: Hypoglycemia Protocol Sodium Chloride (Sodium Chloride 0.9%) 1,000 mls @ 100 mls/hr IV .Q10H [facility] Last Admin: 01/25/19 05:10 Dose: 100 mls/hr Vancomycin HCl (Vancomycin 1gm) 1 gm in 250 mls @ 167 mls/hr IVPB Q12H [facility]; Protocol Last Admin: 01/25/19 11:34 Dose: 167 mls/hr Piperacillin Sod/Tazobactam Sod (Zosyn 3.375 In Ns 100ml) 100 mls @ 25 mls/hr IVPB Q8 [facility]; Protocol Stop: 01/26/19 01:59 Ibuprofen (Motrin Tab) 600 mg PO Q6H PRN PRN Reason: Pain, moderate (4-7) Insulin Human Lispro (Humalog Med) 0 units SC ACHS [facility]; Protocol Last Admin: 01/25/19 11:43 Dose: 1 unit Levalbuterol HCl (Xopenex) 1.25 mg IH Q2H PRN PRN Reason: Shortness of Breath Last Admin: 01/25/19 05:10 Dose: 1.25 mg Nicotine (Nicoderm Cq) 1 patch TD DAILY PRN PRN Reason: URGE TO SMOKE Nystatin (Nystop Topical Powder) 0 gm TOP BID [facility] Last Admin: 01/25/19 12:46 Dose: 1 applic Ondansetron HCl (Zofran Inj) 4 mg IVP Q6H PRN PRN Reason: Nausea/Vomiting Pantoprazole Sodium (Protonix Ec Tab) 40 mg PO 0600 [facility] Last Admin: 01/25/19 05:07 Dose: 40 mg Physical Exam - Constitutional Appears: Non-toxic, No Acute Distress, Chronically Ill - Head Exam Head Exam: ATRAUMATIC, NORMOCEPHALIC - Eye Exam Eye Exam: EOMI, PERRL Pupil Exam: NORMAL ACCOMODATION, PERRL - ENT Exam ENT Exam: Mucous Membranes Moist, Normal External Ear Exam, TM's Normal Bilaterally - Neck Exam Neck exam: Positive for: Full Rom, Normal Inspection - Respiratory Exam Respiratory Exam: Clear to Auscultation Bilateral, NORMAL BREATHING PATTERN. absent: Rales, Rhonchi, Wheezes - Cardiovascular Exam Cardiovascular Exam: REGULAR RHYTHM, RRR, +S1, +S2 - GI/Abdominal Exam GI & Abdominal Exam: Normal Bowel Sounds, Soft. absent: Distended, Tenderness - Extremities Exam Extremities exam: Positive for: full ROM, joint swelling, pedal edema Additional comments: Vascular: DP/PT faintly palpable, CFT < 3 seconds, TG warm to warm, + 2 pitting edema appreciated to b/l lower extremities Ortho: MMT 4/5, pain upon palpation of R posterior calf Neuro: Gross sensation intact, protective sensation diminished Derm: B/L lower extremity weeping edema with superficial ulcerations. RLE= Superficial ulceration measuring approx 3 x 1.5 x .1 cm with mixed fibrotic/granular base noted to anterior lateral aspect of leg. + serous drainage, mild malodor, no purulence appreciated, no erythema, no cellulitis appreciated. Strong odor from right lower leg. LLE= superficial skin tears appreciated to anterior aspect of leg - Neurological Exam Neurological exam: Alert, CN II-XII Intact, Oriented x3 - Psychiatric Exam Psychiatric exam: Normal Affect, Normal Mood - Skin Skin Exam: Intact, Normal Color Results - Vital Signs Recent Vital Signs: Last Vital Signs Temp 98.8 F 01/25/19 06:00 Pulse 107 H 01/25/19 06:00 Resp 20 01/25/19 06:00 BP 116/72 01/25/19 06:00 Pulse Ox 93 L 01/25/19 06:00 - Labs Result Diagrams: 01/25/19 02:23 01/25/19 02:23 Labs: Laboratory Results - last 24 hr 01/25/19 01/25/19 01/25/19 02:23 02:23 02:23 WBC 10.2 RBC 4.98 Hgb 12.2 Hct 40.4 MCV 81.1 MCH 24.5 L MCHC 30.2 L RDW 17.8 H Plt Count 208 MPV 10.0 Neut % (Auto) 79.4 H Lymph % (Auto) 7.0 L [place] % (Auto) 10.7 H Eos % (Auto) 2.8 Baso % (Auto) 0.1 Lymph # (Auto) 0.7 L [place] # (Auto) 1.1 H Eos # (Auto) 0.3 Baso # (Auto) 0.01 Absolute Neuts (auto) 8.11 H PT 14.0 H INR 1.26 APTT 39.3 H pCO2 pO2 HCO3 ABG pH ABG Total CO2 ABG O2 Saturation ABG O2 Content ABG Base Excess ABG Hemoglobin ABG Carboxyhemoglobin POC ABG HHb (Measured) ABG Methemoglobin ABG O2 Capacity Hgb O2 Saturation FiO2 Sodium 137 Potassium 3.6 Chloride 96 L Carbon Dioxide 35 H Anion Gap 9 L BUN 10 Creatinine 0.9 Est GFR ( Amer) > 60 Est GFR (Non-Af Amer) > 60 POC Glucose (mg/dL) Random Glucose 180 H Hemoglobin A1c Calcium 9.1 Phosphorus Magnesium Total Bilirubin 0.8 AST 29 ALT 17 Alkaline Phosphatase 110 Troponin I < 0.01 NT-Pro-B Natriuret Pep Total Protein 7.9 Albumin 3.8 Globulin 4.2 Albumin/Globulin Ratio 0.9 L Triglycerides Cholesterol LDL Cholesterol Direct HDL Cholesterol 25-OH Vitamin D Total TSH 3rd Generation 01/25/19 01/25/19 01/25/19 02:23 02:23 08:25 WBC RBC Hgb Hct MCV MCH MCHC RDW Plt Count MPV Neut % (Auto) Lymph % (Auto) [place] % (Auto) Eos % (Auto) Baso % (Auto) Lymph # (Auto) [place] # (Auto) Eos # (Auto) Baso # (Auto) Absolute Neuts (auto) PT INR APTT pCO2 pO2 HCO3 ABG pH ABG Total CO2 ABG O2 Saturation ABG O2 Content ABG Base Excess ABG Hemoglobin ABG Carboxyhemoglobin POC ABG HHb (Measured) ABG Methemoglobin ABG O2 Capacity Hgb O2 Saturation FiO2 Sodium Potassium Chloride Carbon Dioxide Anion Gap BUN Creatinine Est GFR ( Amer) Est GFR (Non-Af Amer) POC Glucose (mg/dL) Random Glucose Hemoglobin A1c 9.0 H Calcium Phosphorus 3.6 Magnesium 2.2 Total Bilirubin AST ALT Alkaline Phosphatase Troponin I NT-Pro-B Natriuret Pep Total Protein Albumin Globulin Albumin/Globulin Ratio Triglycerides 70 Cholesterol 143 LDL Cholesterol Direct 75 HDL Cholesterol 35 25-OH Vitamin D Total TSH 3rd Generation 2.01 01/25/19 01/25/19 01/25/19 08:25 09:15 11:16 WBC RBC Hgb Hct MCV MCH MCHC RDW Plt Count MPV Neut % (Auto) Lymph % (Auto) [place] % (Auto) Eos % (Auto) Baso % (Auto) Lymph # (Auto) [place] # (Auto) Eos # (Auto) Baso # (Auto) Absolute Neuts (auto) PT INR APTT pCO2 49 H pO2 57.0 L HCO3 29.7 H ABG pH 7.39 ABG Total CO2 31.2 H ABG O2 Saturation 93.7 L ABG O2 Content 15.2 ABG Base Excess 3.8 H ABG Hemoglobin 12.3 ABG Carboxyhemoglobin 5.7 H POC ABG HHb (Measured) 5.9 H ABG Methemoglobin 0.8 ABG O2 Capacity 16.2 Hgb O2 Saturation 87.6 L FiO2 21.0 Sodium Potassium Chloride Carbon Dioxide Anion Gap BUN Creatinine Est GFR ( Amer) Est GFR (Non-Af Amer) POC Glucose (mg/dL) 165 H Random Glucose Hemoglobin A1c Calcium Phosphorus Magnesium Total Bilirubin AST ALT Alkaline Phosphatase Troponin I NT-Pro-B Natriuret Pep Total Protein Albumin Globulin Albumin/Globulin Ratio Triglycerides Cholesterol LDL Cholesterol Direct HDL Cholesterol 25-OH Vitamin D Total < 12.8 L TSH 3rd Generation 01/25/19 11:20 WBC RBC Hgb Hct MCV MCH MCHC RDW Plt Count MPV Neut % (Auto) Lymph % (Auto) [place] % (Auto) Eos % (Auto) Baso % (Auto) Lymph # (Auto) [place] # (Auto) Eos # (Auto) Baso # (Auto) Absolute Neuts (auto) PT INR APTT pCO2 pO2 HCO3 ABG pH ABG Total CO2 ABG O2 Saturation ABG O2 Content ABG Base Excess ABG Hemoglobin ABG Carboxyhemoglobin POC ABG HHb (Measured) ABG Methemoglobin ABG O2 Capacity Hgb O2 Saturation FiO2 Sodium Potassium Chloride Carbon Dioxide Anion Gap BUN Creatinine Est GFR ( Amer) Est GFR (Non-Af Amer) POC Glucose (mg/dL) Random Glucose Hemoglobin A1c Calcium Phosphorus Magnesium Total Bilirubin AST ALT Alkaline Phosphatase Troponin I NT-Pro-B Natriuret Pep 78.2 Total Protein Albumin Globulin Albumin/Globulin Ratio Triglycerides Cholesterol LDL Cholesterol Direct HDL Cholesterol 25-OH Vitamin D Total TSH 3rd Generation Assessment & Plan - Assessment and Plan (Free Text) Assessment: 53 yo female with multiple medical issues that include DM, HTN, morbid obesity, and WINTER presenting with significant weight gain of 51 pounds in the past month and significant swelling of the bilateral lower extremities. Started on Zosyn and IV Vancomycin. Monitor renal function. Franco cultures pending. Wound cul tures pending. Patient likely needs diuresis as well. Noted the patient has an abdominal mass on CT scan. Supportive care Thank you for allowing me to participate in the care of the patient, we will follow with you.
--- NOTE | 2019-01-25 16:10 | CP.PCM.PCO ---
Physician Communication Note - Physician Communication Note Physician Communication Note: Pt unable to tolerate CT scan of ? abdomen mass. Risks d/w patient.
--- NOTE | 2019-01-25 16:25 | CP.PCM.CON ---
<Breanne Olson - Last Filed: 01/25/19 16:25> History of Present Illness - History of Present Illness History of Present Illness: Podiatry Consult Note: Dr. Anderson 53 year old female patient,with PMHx of COPD, obesity, DMII, seen and evaluated for b/l lower extremity edema, pain, and weeping, with R>L. Patient states that her leg started hurting her recently, around a week, and the back of her R leg hurts to touch. She denies any nausea/vomiting/fever/chest pain, however admits to shortness of breath. PMHx: as above PSH: denies ALL: NKDA SH: tobacco use Review of Systems - Constitutional Constitutional: As Per HPI Past Patient History - Infectious Disease Hx of Infectious Diseases: None - Tetanus Immunizations Tetanus Immunization: Unknown - Past Social History Smoking Status: Current Some Days Smoker - CARDIAC Hx Cardiac Disorders: Yes Hx Congestive Heart Failure: Yes Hx Hypertension: Yes - PULMONARY Hx Chronic Obstructive Pulmonary Disease (COPD): Yes - NEUROLOGICAL Hx Neurological Disorder: No - HEENT Hx HEENT Problems: No - RENAL Hx Chronic Kidney Disease: No - ENDOCRINE/METABOLIC Hx Diabetes Mellitus Type 2: Yes - HEMATOLOGICAL/ONCOLOGICAL Hx Blood Disorders: No - INTEGUMENTARY Hx Dermatological Problems: No - MUSCULOSKELETAL/RHEUMATOLOGICAL Hx Falls: No - GASTROINTESTINAL Hx Gastrointestinal Disorders: No - GENITOURINARY/GYNECOLOGICAL Hx Genitourinary Disorders: No - PSYCHIATRIC Hx Depression: No Hx Emotional Abuse: No Hx Physical Abuse: No Hx Substance Use: No - SURGICAL HISTORY Hx Section: Yes (x2) - ANESTHESIA Hx Anesthesia: No Meds Allergies/Adverse Reactions: Allergies Allergy/AdvReac Type Severity Reaction Status Date / Time No Known Allergies Allergy Verified 12/22/13 17:23 - Medications Medications: Current Medications Acetaminophen (Tylenol 325mg Tab) 650 mg PO Q6H PRN PRN Reason: Pain, Mild (1-3) Last Admin: 01/25/19 05:08 Dose: 650 mg Dextrose (Dextrose 50% Inj) 0 ml IV STAT PRN; Protocol PRN Reason: Hypoglycemia Protocol Enoxaparin Sodium (Lovenox) 40 mg SC DAILY [facility]; Protocol Last Admin: 01/25/19 11:43 Dose: 40 mg Dextrose (Dextrose 5% In Water 1000 Ml) 1,000 mls @ 0 mls/hr IV .Q0M PRN; Protocol PRN Reason: Hypoglycemia Protocol Sodium Chloride (Sodium Chloride 0.9%) 1,000 mls @ 100 mls/hr IV .Q10H [facility] Last Admin: 01/25/19 05:10 Dose: 100 mls/hr Vancomycin HCl (Vancomycin 1gm) 1 gm in 250 mls @ 167 mls/hr IVPB Q12H [facility]; Protocol Last Admin: 01/25/19 11:34 Dose: 167 mls/hr Piperacillin Sod/Tazobactam Sod (Zosyn 3.375 In Ns 100ml) 100 mls @ 25 mls/hr IVPB Q8 [facility]; Protocol Stop: 01/26/19 01:59 Ibuprofen (Motrin Tab) 600 mg PO Q6H PRN PRN Reason: Pain, moderate (4-7) Insulin Human Lispro (Humalog Med) 0 units SC ACHS [facility]; Protocol Last Admin: 01/25/19 11:43 Dose: 1 unit Levalbuterol HCl (Xopenex) 1.25 mg IH Q2H PRN PRN Reason: Shortness of Breath Last Admin: 01/25/19 05:10 Dose: 1.25 mg Nicotine (Nicoderm Cq) 1 patch TD DAILY PRN PRN Reason: URGE TO SMOKE Nystatin (Nystop Topical Powder) 0 gm TOP BID [facility] Last Admin: 01/25/19 12:46 Dose: 1 applic Ondansetron HCl (Zofran Inj) 4 mg IVP Q6H PRN PRN Reason: Nausea/Vomiting Pantoprazole Sodium (Protonix Ec Tab) 40 mg PO 0600 [facility] Last Admin: 01/25/19 05:07 Dose: 40 mg Physical Exam - Constitutional Appears: Non-toxic, No Acute Distress - Head Exam Head Exam: ATRAUMATIC, NORMOCEPHALIC - Extremities Exam Additional comments: Vascular: DP/PT faintly palpable, CFT < 3 seconds, TG warm to warm, + 2 pitting edema appreciated to b/l lower extremities Ortho: MMT 4/5, pain upon palpation of R posterior calf Neuro: Gross sensation intact, protective sensation diminished Derm: B/L lower extremity weeping edema with superficial ulcerations. RLE= Superficial ulceration measuring approx 3 x 1.5 x .1 cm with mixed fibrotic/granular base noted to anterior lateral aspect of leg. + serous drainage, mild malodor, no purulence appreciated, no erythema, no cellulitis appreciated LLE= superficial skin tears appreciated to anterior aspect of leg - Psychiatric Exam Psychiatric exam: Normal Affect, Normal Mood Results - Vital Signs Recent Vital Signs: Last Vital Signs Temp 99.5 F 01/25/19 14:00 Pulse 106 H 01/25/19 14:00 Resp 20 01/25/19 14:00 BP 135/77 01/25/19 14:00 Pulse Ox 93 L 01/25/19 14:00 - Labs Result Diagrams: 01/25/19 02:23 01/25/19 02:23 Labs: Laboratory Results - last 24 hr 01/25/19 01/25/19 01/25/19 02:23 02:23 02:23 WBC 10.2 RBC 4.98 Hgb 12.2 Hct 40.4 MCV 81.1 MCH 24.5 L MCHC 30.2 L RDW 17.8 H Plt Count 208 MPV 10.0 Neut % (Auto) 79.4 H Lymph % (Auto) 7.0 L [place] % (Auto) 10.7 H Eos % (Auto) 2.8 Baso % (Auto) 0.1 Lymph # (Auto) 0.7 L [place] # (Auto) 1.1 H Eos # (Auto) 0.3 Baso # (Auto) 0.01 Absolute Neuts (auto) 8.11 H PT 14.0 H INR 1.26 APTT 39.3 H pCO2 pO2 HCO3 ABG pH ABG Total CO2 ABG O2 Saturation ABG O2 Content ABG Base Excess ABG Hemoglobin ABG Carboxyhemoglobin POC ABG HHb (Measured) ABG Methemoglobin ABG O2 Capacity Hgb O2 Saturation FiO2 Sodium 137 Potassium 3.6 Chloride 96 L Carbon Dioxide 35 H Anion Gap 9 L BUN 10 Creatinine 0.9 Est GFR ( Amer) > 60 Est GFR (Non-Af Amer) > 60 POC Glucose (mg/dL) Random Glucose 180 H Hemoglobin A1c Calcium 9.1 Phosphorus Magnesium Total Bilirubin 0.8 AST 29 ALT 17 Alkaline Phosphatase 110 Troponin I < 0.01 NT-Pro-B Natriuret Pep Total Protein 7.9 Albumin 3.8 Globulin 4.2 Albumin/Globulin Ratio 0.9 L Triglycerides Cholesterol LDL Cholesterol Direct HDL Cholesterol 25-OH Vitamin D Total Procalcitonin TSH 3rd Generation 01/25/19 01/25/19 01/25/19 02:23 02:23 02:23 WBC RBC Hgb Hct MCV MCH MCHC RDW Plt Count MPV Neut % (Auto) Lymph % (Auto) [place] % (Auto) Eos % (Auto) Baso % (Auto) Lymph # (Auto) [place] # (Auto) Eos # (Auto) Baso # (Auto) Absolute Neuts (auto) PT INR APTT pCO2 pO2 HCO3 ABG pH ABG Total CO2 ABG O2 Saturation ABG O2 Content ABG Base Excess ABG Hemoglobin ABG Carboxyhemoglobin POC ABG HHb (Measured) ABG Methemoglobin ABG O2 Capacity Hgb O2 Saturation FiO2 Sodium Potassium Chloride Carbon Dioxide Anion Gap BUN Creatinine Est GFR ( Amer) Est GFR (Non-Af Amer) POC Glucose (mg/dL) Random Glucose Hemoglobin A1c 9.0 H Calcium Phosphorus 3.6 Magnesium 2.2 Total Bilirubin AST ALT Alkaline Phosphatase Troponin I NT-Pro-B Natriuret Pep Total Protein Albumin Globulin Albumin/Globulin Ratio Triglycerides 70 Cholesterol 143 LDL Cholesterol Direct 75 HDL Cholesterol 35 25-OH Vitamin D Total Procalcitonin 0.09 L TSH 3rd Generation 01/25/19 01/25/19 01/25/19 08:25 08:25 09:15 WBC RBC Hgb Hct MCV MCH MCHC RDW Plt Count MPV Neut % (Auto) Lymph % (Auto) [place] % (Auto) Eos % (Auto) Baso % (Auto) Lymph # (Auto) [place] # (Auto) Eos # (Auto) Baso # (Auto) Absolute Neuts (auto) PT INR APTT pCO2 49 H pO2 57.0 L HCO3 29.7 H ABG pH 7.39 ABG Total CO2 31.2 H ABG O2 Saturation 93.7 L ABG O2 Content 15.2 ABG Base Excess 3.8 H ABG Hemoglobin 12.3 ABG Carboxyhemoglobin 5.7 H POC ABG HHb (Measured) 5.9 H ABG Methemoglobin 0.8 ABG O2 Capacity 16.2 Hgb O2 Saturation 87.6 L FiO2 21.0 Sodium Potassium Chloride Carbon Dioxide Anion Gap BUN Creatinine Est GFR ( Amer) Est GFR (Non-Af Amer) POC Glucose (mg/dL) Random Glucose Hemoglobin A1c Calcium Phosphorus Magnesium Total Bilirubin AST ALT Alkaline Phosphatase Troponin I NT-Pro-B Natriuret Pep Total Protein Albumin Globulin Albumin/Globulin Ratio Triglycerides Cholesterol LDL Cholesterol Direct HDL Cholesterol 25-OH Vitamin D Total < 12.8 L Procalcitonin TSH 3rd Generation 2.01 01/25/19 01/25/19 01/25/19 11:16 11:20 16:14 WBC RBC Hgb Hct MCV MCH MCHC RDW Plt Count MPV Neut % (Auto) Lymph % (Auto) [place] % (Auto) Eos % (Auto) Baso % (Auto) Lymph # (Auto) [place] # (Auto) Eos # (Auto) Baso # (Auto) Absolute Neuts (auto) PT INR APTT pCO2 pO2 HCO3 ABG pH ABG Total CO2 ABG O2 Saturation ABG O2 Content ABG Base Excess ABG Hemoglobin ABG Carboxyhemoglobin POC ABG HHb (Measured) ABG Methemoglobin ABG O2 Capacity Hgb O2 Saturation FiO2 Sodium Potassium Chloride Carbon Dioxide Anion Gap BUN Creatinine Est GFR ( Amer) Est GFR (Non-Af Amer) POC Glucose (mg/dL) 165 H 197 H Random Glucose Hemoglobin A1c Calcium Phosphorus Magnesium Total Bilirubin AST ALT Alkaline Phosphatase Troponin I NT-Pro-B Natriuret Pep 78.2 Total Protein Albumin Globulin Albumin/Globulin Ratio Triglycerides Cholesterol LDL Cholesterol Direct HDL Cholesterol 25-OH Vitamin D Total Procalcitonin TSH 3rd Generation Assessment & Plan - Assessment and Plan (Free Text) Assessment: 53 year old female patient,with PMHx of COPD, obesity, DMII, seen and evaluated for b/l lower extremity edema, pain, and weeping, with R>L. Plan: Patient seen and evaluated with attending Dr. Anderson Afebrile, WBC 10.2 RLE wound culture taken; pending LE US taken; pending Local wound care; maxorb, DSD Will continue to follow Thank you for the consult - Date & Time Date: 01/25/19 Time: 16:24 <Jhonathan Anderson - Last Filed: 01/26/19 09:37> Meds - Medications Medications: Current Medications Acetaminophen (Tylenol 325mg Tab) 650 mg PO Q6H PRN PRN Reason: Pain, Mild (1-3) Last Admin: 01/25/19 05:08 Dose: 650 mg Dextrose (Dextrose 50% Inj) 0 ml IV STAT PRN; Protocol PRN Reason: Hypoglycemia Protocol Enoxaparin Sodium (Lovenox) 40 mg SC DAILY [facility]; Protocol Last Admin: 01/25/19 11:43 Dose: 40 mg Dextrose (Dextrose 5% In Water 1000 Ml) 1,000 mls @ 0 mls/hr IV .Q0M PRN; Protocol PRN Reason: Hypoglycemia Protocol Sodium Chloride (Sodium Chloride 0.9%) 1,000 mls @ 100 mls/hr IV .Q10H [facility] Last Admin: 01/25/19 05:10 Dose: 100 mls/hr Vancomycin HCl (Vancomycin 1gm) 1 gm in 250 mls @ 167 mls/hr IVPB Q12H [facility]; Protocol Last Admin: 01/25/19 21:17 Dose: 167 mls/hr Ibuprofen (Motrin Tab) 600 mg PO Q6H PRN PRN Reason: Pain, moderate (4-7) Last Admin: 01/26/19 02:20 Dose: 600 mg Insulin Human Lispro (Humalog Med) 0 units SC ACHS [facility]; Protocol Last Admin: 01/26/19 08:43 Dose: 1 unit Levalbuterol HCl (Xopenex) 1.25 mg IH Q2H PRN PRN Reason: Shortness of Breath Last Admin: 01/25/19 05:10 Dose: 1.25 mg Nicotine (Nicoderm Cq) 1 patch TD DAILY PRN PRN Reason: URGE TO SMOKE Last Admin: 01/25/19 17:30 Dose: 1 patch Nystatin (Nystop Topical Powder) 0 gm TOP BID [facility] Last Admin: 01/25/19 12:46 Dose: 1 applic Ondansetron HCl (Zofran Inj) 4 mg IVP Q6H PRN PRN Reason: Nausea/Vomiting Pantoprazole Sodium (Protonix Ec Tab) 40 mg PO 0600 [facility] Last Admin: 01/26/19 05:33 Dose: 40 mg Results - Vital Signs Recent Vital Signs: Last Vital Signs Temp 98 F 01/26/19 06:00 Pulse 91 H 01/26/19 06:00 Resp 18 01/26/19 06:00 BP 102/61 01/26/19 06:00 Pulse Ox 94 L 01/26/19 06:00 - Labs Result Diagrams: 01/26/19 07:15 01/26/19 07:15 Labs: Laboratory Results - last 24 hr 01/25/19 01/25/19 01/25/19 02:23 02:23 08:25 WBC RBC Hgb Hct MCV MCH MCHC RDW Plt Count MPV Neut % (Auto) Lymph % (Auto) [place] % (Auto) Eos % (Auto) Baso % (Auto) Lymph # (Auto) [place] # (Auto) Eos # (Auto) Baso # (Auto) Absolute Neuts (auto) Sodium Potassium Chloride Carbon Dioxide Anion Gap BUN Creatinine Est GFR ( Amer) Est GFR (Non-Af Amer) POC Glucose (mg/dL) Random Glucose Hemoglobin A1c 9.0 H Calcium Total Bilirubin AST ALT Alkaline Phosphatase NT-Pro-B Natriuret Pep Total Protein Albumin Globulin Albumin/Globulin Ratio 25-OH Vitamin D Total < 12.8 L Procalcitonin 0.09 L 01/25/19 01/25/19 01/25/19 11:16 11:20 16:14 WBC RBC Hgb Hct MCV MCH MCHC RDW Plt Count MPV Neut % (Auto) Lymph % (Auto) [place] % (Auto) Eos % (Auto) Baso % (Auto) Lymph # (Auto) [place] # (Auto) Eos # (Auto) Baso # (Auto) Absolute Neuts (auto) Sodium Potassium Chloride Carbon Dioxide Anion Gap BUN Creatinine Est GFR ( Amer) Est GFR (Non-Af Amer) POC Glucose (mg/dL) 165 H 197 H Random Glucose Hemoglobin A1c Calcium Total Bilirubin AST ALT Alkaline Phosphatase NT-Pro-B Natriuret Pep 78.2 Total Protein Albumin Globulin Albumin/Globulin Ratio 25-OH Vitamin D Total Procalcitonin 01/25/19 01/26/19 01/26/19 21:07 06:41 07:15 WBC 8.3 RBC 4.73 Hgb 11.4 L Hct 38.4 MCV 81.2 MCH 24.1 L MCHC 29.7 L RDW 17.9 H Plt Count 241 MPV 10.3 Neut % (Auto) 75.7 H Lymph % (Auto) 10.6 L [place] % (Auto) 9.0 H Eos % (Auto) 4.5 Baso % (Auto) 0.2 Lymph # (Auto) 0.9 L [place] # (Auto) 0.8 H Eos # (Auto) 0.4 Baso # (Auto) 0.02 Absolute Neuts (auto) 6.28 Sodium Potassium Chloride Carbon Dioxide Anion Gap BUN Creatinine Est GFR ( Amer) Est GFR (Non-Af Amer) POC Glucose (mg/dL) 182 H 160 H Random Glucose Hemoglobin A1c Calcium Total Bilirubin AST ALT Alkaline Phosphatase NT-Pro-B Natriuret Pep Total Protein Albumin Globulin Albumin/Globulin Ratio 25-OH Vitamin D Total Procalcitonin 01/26/19 07:15 WBC RBC Hgb Hct MCV MCH MCHC RDW Plt Count MPV Neut % (Auto) Lymph % (Auto) [place] % (Auto) Eos % (Auto) Baso % (Auto) Lymph # (Auto) [place] # (Auto) Eos # (Auto) Baso # (Auto) Absolute Neuts (auto) Sodium 138 Potassium 4.0 Chloride 100 Carbon Dioxide 33 Anion Gap 9 L BUN 15 Creatinine 0.8 Est GFR ( Amer) > 60 Est GFR (Non-Af Amer) > 60 POC Glucose (mg/dL) Random Glucose 141 H Hemoglobin A1c Calcium 8.4 Total Bilirubin 0.6 AST 29 ALT 10 Alkaline Phosphatase 104 NT-Pro-B Natriuret Pep Total Protein 7.6 Albumin 3.5 Globulin 4.1 Albumin/Globulin Ratio 0.9 L 25-OH Vitamin D Total Procalcitonin Attending/Attestation - Attestation I have personally seen and examined this patient.: Yes I have fully participated in the care of the patient.: Yes I have reviewed all pertinent clinical information: Yes
[2019-01-25] MEDS: Piperacillin/Tazobact 3.375 gm 100 ML IVPB SCH ×2 (17:29→21:18)
--- NOTE | 2019-01-25 18:56 | US ---
HISTORY: Leg pain and swelling. Evaluate for DVT PHYSICIAN(S): Luis Worthy MD. TECHNIQUE: Duplex sonography and color-flow Doppler with graded compression were used to evaluate the deep venous systems of both lower extremities. The exam is extremely limited due to the patient's body habitus and bedridden condition. FINDINGS: The visualized deep venous systems of both lower extremities are sonographically normal and compressible. Normal wave forms and augmentation are seen. There is no sonographic evidence for deep venous thrombosis in the visualized segments of both lower extremities. The calf veins and distal femoral veins are not well seen IMPRESSION: No sonographic evidence for deep venous thrombosis in the visualized segments of both lower extremities. Very limited study.
[2019-01-26] MEDS ORDERED: Morphine 2 mg/ml ISec IVP ONE ×2 (05:21→18:48)
[2019-01-26] MEDS: Pantoprazole 40 mg EC Tab PO SCH (05:33)
[2019-01-26 07:37] LABS: BASO # 0.02 K/mm3 (0.0-2.0); BASO % 0.2 % (0.0-3.0); EOS # 0.4 (0.0-0.7); EOS % 4.5 % (1.5-5.0); HEMOGLOBIN 11.4 g/dL (12.0-16.0); LYMPH # 0.9 (1.2-3.4); LYMPH % 10.6 % (22.0-35.0); MEAN CELL VOLUME 81.2 fl (80.0-105.0); MEAN CORPUSCULAR HEMOGLOBIN 24.1 pg (25.0-35.0); MEAN CORPUSCULAR HGB CONC 29.7 g/dl (31.0-37.0); MEAN PLATELET VOLUME 10.3 fl (7.0-11.0); MONO # 0.8 (0.1-0.6); RBC 4.73 10^6/uL (3.5-6.1); RED CELL DISTRIBUTION WIDTH 17.9 % (11.5-14.5); WHITE BLOOD COUNT 8.3 10^3/uL (4.5-11.0)
[2019-01-26 07:52] LABS: ALB/GLOB RATIO 0.9 (1.1-1.8); ALBUMIN 3.5 g/dL (3.0-4.8); ALT/SGPT 10 U/L (7-56); AST/SGOT 29 U/L (14-36); BLOOD UREA NITROGEN 15 mg/dL (7-21); CALCIUM 8.4 mg/dL (8.4-10.5); GFR NON-AFRICAN AMERICAN > 60
[2019-01-26] MEDS: Insulin Lispro (humaLOG) MEDIUM Coverage SC SCH ×4 (08:43→21:36)
[2019-01-26] MEDS: Vancomycin 1gm in NS 250ml 1 GM/250 ML BAG IVPB SCH ×2 (09:44→21:56)
[2019-01-26] MEDS: Enoxaparin 40 mg Syringe SC SCH (09:44)
[2019-01-26] MEDS: Sodium Chloride 0.9% 1,000 ML IV SCH (09:46)
[2019-01-26] MEDS ORDERED: Piperacillin/Tazobact 3.375 gm 100 ML IVPB SCH (10:15)
[2019-01-26] MEDS: Nystatin 100,000 Units/gm Topical Pow(15 gm) TOP SCH ×2 (12:29→17:48)
--- NOTE | 2019-01-26 13:20 | CP.PCM.PN ---
<Nikita Boss - Last Filed: 01/26/19 13:15> Subjective - Date & Time of Evaluation Date of Evaluation: 01/26/19 Time of Evaluation: 09:00 - Subjective Subjective: Nikita Boss PGY-1 Progress Note for Hospitalist Service Patient seen and evaluated at bedside. No acute events reported overnight. Patient slept sitting up in recliner chair. Patient currently respirating on room air without difficulty. Patient reports improved leg pain and mild shortness of breath. Denies chest pain, palpitations, dizziness and headaches.. Objective - Vital Signs/Intake and Output Vital Signs (last 24 hours): Temp Pulse Resp BP Pulse Ox 98 F 91 H 18 110/60 94 L 01/26/19 06:00 01/26/19 06:00 01/26/19 06:00 01/26/19 12:24 01/26/19 06:00 Intake and Output: 01/26/19 01/26/19 06:59 18:59 Intake Total 1820 Output Total 750 Balance 1070 - Medications Medications: Current Medications Acetaminophen (Tylenol 325mg Tab) 650 mg PO Q6H PRN PRN Reason: Pain, Mild (1-3) Last Admin: 01/25/19 05:08 Dose: 650 mg Dextrose (Dextrose 50% Inj) 0 ml IV STAT PRN; Protocol PRN Reason: Hypoglycemia Protocol Enoxaparin Sodium (Lovenox) 40 mg SC DAILY JULIA; Protocol Last Admin: 01/26/19 09:44 Dose: 40 mg Furosemide (Lasix) 40 mg IVP DAILY JULIA Last Admin: 01/26/19 12:24 Dose: 40 mg Dextrose (Dextrose 5% In Water 1000 Ml) 1,000 mls @ 0 mls/hr IV .Q0M PRN; Protocol PRN Reason: Hypoglycemia Protocol Sodium Chloride (Sodium Chloride 0.9%) 1,000 mls @ 100 mls/hr IV .Q10H JULIA Last Admin: 01/26/19 09:46 Dose: 100 mls/hr Vancomycin HCl (Vancomycin 1gm) 1 gm in 250 mls @ 167 mls/hr IVPB Q12H [facility]ULIA; Protocol Last Admin: 01/26/19 09:44 Dose: 167 mls/hr Piperacillin Sod/Tazobactam Sod (Zosyn 3.375 In Ns 100ml) 100 mls @ 25 mls/hr IVPB Q12 JULIA; Protocol Stop: 01/26/19 14:14 Last Admin: 01/26/19 12:24 Dose: 25 mls/hr Ibuprofen (Motrin Tab) 600 mg PO Q6H PRN PRN Reason: Pain, moderate (4-7) Last Admin: 01/26/19 02:20 Dose: 600 mg Insulin Human Lispro (Humalog Med) 0 units SC ACHS [facility]ULIA; Protocol Last Admin: 01/26/19 12:22 Dose: 3 unit Levalbuterol HCl (Xopenex) 1.25 mg IH Q2H PRN PRN Reason: Shortness of Breath Last Admin: 01/25/19 05:10 Dose: 1.25 mg Nicotine (Nicoderm Cq) 1 patch TD DAILY PRN PRN Reason: URGE TO SMOKE Last Admin: 01/26/19 09:45 Dose: 1 patch Nystatin (Nystop Topical Powder) 0 gm TOP BID JULIA Last Admin: 01/26/19 12:29 Dose: 1 applic Ondansetron HCl (Zofran Inj) 4 mg IVP Q6H PRN PRN Reason: Nausea/Vomiting Pantoprazole Sodium (Protonix Ec Tab) 40 mg PO 0600 [facility] Last Admin: 01/26/19 05:33 Dose: 40 mg - Labs Labs: 01/26/19 07:15 01/26/19 07:15 PT 14.0 SECONDS (9.4-12.5) H 01/25/19 02:23 INR 1.26 01/25/19 02:23 APTT 39.3 Seconds (26.9-38.3) H 01/25/19 02:23 - Additional Findings Additional findings: Appears: Unkempt, Chronically Ill Additional comments: morbidly obese, appears uncomfortable - Head Exam Head Exam: ATRAUMATIC, NORMOCEPHALIC - Eye Exam Eye Exam: EOMI, PERRL. absent: Scleral icterus - ENT Exam ENT Exam: Mucous Membranes Dry - Neck Exam Neck exam: Negative for: Lymphadenopathy - Respiratory Exam Respiratory Exam: Wheezes (faint end expiratory wheezes b/l). absent: Accessory Muscle Use, Rales, Rhonchi, Respiratory Distress - Cardiovascular Exam Cardiovascular Exam: REGULAR RHYTHM, RRR, +S1, +S2. absent: Diastolic murmur, Gallop, Rubs, Systolic Murmur - GI/Abdominal Exam GI & Abdominal Exam: Mass (mass palpated R mid abdominal region), Normal Bowel Sounds, Tenderness (diffuse tenderness to palpation). absent: Guarding Additional comments: Obese with striae, R sided wound under abdominal folds - Exam External exam: Erythema, Lesions Additional comments: Suprapubic region appears edematous, R-sided foul smelling discharge between R abdomen and leg - Extremities Exam Extremities exam: Positive for: pedal edema (b/l pitting edema), tenderness (diffusely tender to palpation of b/l LE), pedal pulses present. Negative for: full ROM Additional comments: Wound seen on R medial foot approximately 1 cm, R lateral foot wound 3-4 cm, wound on posterior R thigh measures approximately 1 cm. Diffuse xerosis cutis b/l. Poor hygiene. Venous stasis dermatitis. L wrap currently being wrapped by podiatry team - Neurological Exam Neurological exam: Alert, Oriented x3 - Psychiatric Exam Psychiatric exam: Anxious - Skin Skin Exam: Erythema, Rash (b/l LE) Assessment and Plan - Assessment and Plan (Free Text) Assessment: 53 yo F with PMH of COPD, WINTER, BMI of 64, and DM2 (last A1c 6.9) presents with worsening b/l LE edema, erythema presents with inability to ambulate because of LE swelling. She is admitted for management of b/l LE cellulitis/wounds. Plan: B/l LE Cellulitis Afebrile, no leukocytosis but wounds are non-healing Received one dose of vanc/zosyn in ED F/u blood, urine, wound cx, negative to date Wound care consult placed, all recs appreciated Podiatry consult placed for foot care/management of 2 foot ulcers - wound care, F/u RLE wound culture Procal 0.09, TSH 2.01 B/l LE doppler US negative for DVT ID consult placed, all recs appreciated - Continue Vanc and Zosyn Start diuresis with Furosemide 40 mg IVP Foot/posterior thigh ulcers F/u wound cx x 3 Poorly controlled DM2 ISS while admitted HgbA1c 9.0 COPD Xopenex PRN for SOB No active issues WINTER Likely has component of obesity hypoventilation syndrome Pulmonology consult placed, all recs appreciated Tobacco abuse Nicotine patch PRN Advise patient regularly on importance of abstinence Low Vitamin D <12 in serum Start daily repletion with cholecalciferol 1000 units daily BMI 64 Distribution Clerk referral placed, all recs appreciated Will need counseling regarding importance of weight loss Dispo: SW/CM recs for CPAP fittings on discharge DVT/GI PPX: Lovenox/protonix Full Code HH, diabetic diet Monitor on med/surg Patient seen, case reviewed and plan approved by Dr. Jose Malave. Nikita Boss, PGY-1 <Tatum Malave R - Last Filed: 01/27/19 16:17> Objective - Vital Signs/Intake and Output Vital Signs (last 24 hours): Temp Pulse Resp BP Pulse Ox 99 F 97 H 19 148/80 94 L 01/27/19 15:33 01/27/19 15:33 01/27/19 15:33 01/27/19 15:33 01/27/19 15:33 Intake and Output: 01/27/19 01/27/19 06:59 18:59 Intake Total 2730 Output Total 500 Balance 2230 - Medications Medications: Current Medications Acetaminophen (Tylenol 325mg Tab) 650 mg PO Q6H PRN PRN Reason: Pain, Mild (1-3) Last Admin: 01/25/19 05:08 Dose: 650 mg Dextrose (Dextrose 50% Inj) 0 ml IV STAT PRN; Protocol PRN Reason: Hypoglycemia Protocol Enoxaparin Sodium (Lovenox) 40 mg SC DAILY JULIA; Protocol Last Admin: 01/27/19 09:33 Dose: 40 mg Ergocalciferol (Drisdol 50,000 Intl Units Cap) 1 cap PO Q7D JULIA Last Admin: 01/26/19 17:46 Dose: 1 cap Furosemide (Lasix) 40 mg IVP DAILY JULIA Last Admin: 01/27/19 09:32 Dose: 40 mg Dextrose (Dextrose 5% In Water 1000 Ml) 1,000 mls @ 0 mls/hr IV .Q0M PRN; Protocol PRN Reason: Hypoglycemia Protocol Vancomycin HCl (Vancomycin 1gm) 1 gm in 250 mls @ 167 mls/hr IVPB Q12H JULIA; Protocol Last Admin: 01/27/19 09:33 Dose: 167 mls/hr Piperacillin Sod/Tazobactam Sod (Zosyn 3.375 In Ns 100ml) 100 mls @ 25 mls/hr IVPB Q8 JULIA; Protocol Last Admin: 01/27/19 15:53 Dose: 25 mls/hr Ibuprofen (Motrin Tab) 600 mg PO Q6H PRN PRN Reason: Pain, moderate (4-7) Last Admin: 01/26/19 02:20 Dose: 600 mg Insulin Human Lispro (Humalog Med) 0 units SC ACHS JULIA; Protocol Last Admin: 01/27/19 12:00 Dose: Not Given Levalbuterol HCl (Xopenex) 1.25 mg IH Q2H PRN PRN Reason: Shortness of Breath Last Admin: 01/25/19 05:10 Dose: 1.25 mg Nicotine (Nicoderm Cq) 1 patch TD DAILY PRN PRN Reason: URGE TO SMOKE Last Admin: 01/27/19 09:33 Dose: 1 patch Nystatin (Nystop Topical Powder) 0 gm TOP BID JULIA Last Admin: 01/26/19 17:48 Dose: 1 applic Ondansetron HCl (Zofran Inj) 4 mg IVP Q6H PRN PRN Reason: Nausea/Vomiting Oxycodone HCl (Oxycodone Immediate Release Tab) 15 mg PO Q6H PRN PRN Reason: Pain, severe (8-10) Pantoprazole Sodium (Protonix Ec Tab) 40 mg PO 0600 [facility] Last Admin: 01/27/19 05:29 Dose: 40 mg - Labs Labs: 01/27/19 07:20 01/27/19 07:20 PT 14.0 SECONDS (9.4-12.5) H 01/25/19 02:23 INR 1.26 01/25/19 02:23 APTT 39.3 Seconds (26.9-38.3) H 01/25/19 02:23 Attending/Attestation - Attestation I have personally seen and examined this patient.: Yes I have fully participated in the care of the patient.: Yes I have reviewed all pertinent clinical information, including history, physical exam and plan: Yes Notes (Text): Patient seen and examined by me with resident at 11:05AM on 01/26/19. Case including HPI, physical exam, and assessment and plan discussed with resident. Agree with above with following additions/corrections. Patient is 53-year-old female past medical history significant for COPD, s hortness to sleep apnea noncompliant with CPAP, morbid obesity, type 2 diabetes, and noncompliance with medications that presented to the emergency room with bilateral lower extremity swelling, redness, and pain. Patient states that she is feeling a little better. Complains of bilateral lower extremity pain. States she is unable to ambulate well secondary to the pain. She is denying any abdominal pain. No nausea or vomiting. Patient denies chest pain or palpitations. No shortness of breath. No headaches or dizziness. No fevers or chills. No dysuria. Physical exam: General: Awake and alert, sitting up in chair in no acute distress. Poor hygiene HEENT: Normocephalic, atraumatic, Extraocular muscles intact, pupils equal and reactive, no scleral icterus. Oropharynx is pink and moist. Neck is supple. Cardiovascular: Normal rhythm. Normal S1 and S2. No murmurs, rubs, or gallops appreciated. Pulmonary: Normal respiratory effort. Decreased breath sounds. No rhonchi, rales, or wheezing appreciated. Gastrointestinal: Soft. Nontender. Nondistended. Positive bowel sounds all 4 quadrants. No guarding. Morbidly obese abdomen. Musculoskeletal: Moves all extremities. Bilateral lower extremity edema, mild erythema, and tenderness. Dressing on wounds clean, dry, and intact. Central nervous system: AAO x 3 Dermatologic: Skin warm and dry. Positive candidal rash under abdominal folds. Diffuse xerosis cutis. Bilateral lower extremity venous stasis dermatitis. Assessment and plan: Patient is 53-year-old female past medical history significant for COPD, shortness to sleep apnea noncompliant with CPAP, morbid obesity, type 2 diabetes, and noncompliance with medications that presented to the emergency room with bilateral lower extremity swelling, redness, and pain. 1. Bilateral lower extremity cellulitis, edema. Right extremity wounds, right posterior thigh wound. Continue with wound care. Podiatry following, recommendations appreciated. Bilateral lower extremity venous dopplers negative, very limited study. ID following, recommendations appreciated. Continue Zosyn and Vancomycin. Started on Lasix. Continue physical therapy. Procalcitonin 0.09. Blood cultures with no growth. 2. Poorly controlled DM2. Continue insulin sliding scale. HgbA1C is 9. Continue to monitor accuchecks. Diabetic education. 3. COPD. WINTER. Pulmonary following, recommendations apprecited. Continue CPAP at bedtime. Continue Xopenex as needed. Not in acute COPD exacerbation. 2d Echo pending. 4. Tobacco abuse. Counseled at length on cessation. Continue nicoderm. 5. Noncompliance. Patient has not been taking medications or following with a doctor for over a year. Patient counseled at length on importance of taking medications and following with a primary care doctor. 6. Vitamin D deficiency. Started on 50,000 IU weekly. 7. Morbid Obesity. BMI 64. Distribution Clerk consulted. Diet and exercise discussed at length with patient. 8. GI/DVT prophylaxis. Lovenox/Protonix. 9. Patient is a full code. Case was discussed in detail with the patient regarding current diagnosis and treatment plan. All questions answered.
--- NOTE | 2019-01-26 13:21 | CP.PCM.PN ---
<Breanne Olson - Last Filed: 01/26/19 13:17> Subjective - Date & Time of Evaluation Date of Evaluation: 01/26/19 Time of Evaluation: 13:18 - Subjective Subjective: Podiatry Consult Note: Dr. Martinez 53 year old female patient seen and evaluated for b/l lower extremity edema, pain, and weeping, with R>L. Patient resting comfortably in bedside chair and in NAD. Denies any nausea/vomiting/fever/chest pain, however admits to shortness of breath. Objective - Vital Signs/Intake and Output Vital Signs (last 24 hours): Temp Pulse Resp BP Pulse Ox 98 F 91 H 18 110/60 94 L 01/26/19 06:00 01/26/19 06:00 01/26/19 06:00 01/26/19 12:24 01/26/19 06:00 Intake and Output: 01/26/19 01/26/19 06:59 18:59 Intake Total 1820 Output Total 750 Balance 1070 - Medications Medications: Current Medications Acetaminophen (Tylenol 325mg Tab) 650 mg PO Q6H PRN PRN Reason: Pain, Mild (1-3) Last Admin: 01/25/19 05:08 Dose: 650 mg Dextrose (Dextrose 50% Inj) 0 ml IV STAT PRN; Protocol PRN Reason: Hypoglycemia Protocol Enoxaparin Sodium (Lovenox) 40 mg SC DAILY JULIA; Protocol Last Admin: 01/26/19 09:44 Dose: 40 mg Furosemide (Lasix) 40 mg IVP DAILY JULIA Last Admin: 01/26/19 12:24 Dose: 40 mg Dextrose (Dextrose 5% In Water 1000 Ml) 1,000 mls @ 0 mls/hr IV .Q0M PRN; Protocol PRN Reason: Hypoglycemia Protocol Sodium Chloride (Sodium Chloride 0.9%) 1,000 mls @ 100 mls/hr IV .Q10H JULIA Last Admin: 01/26/19 09:46 Dose: 100 mls/hr Vancomycin HCl (Vancomycin 1gm) 1 gm in 250 mls @ 167 mls/hr IVPB Q12H JULIA; Protocol Last Admin: 01/26/19 09:44 Dose: 167 mls/hr Piperacillin Sod/Tazobactam Sod (Zosyn 3.375 In Ns 100ml) 100 mls @ 25 mls/hr IVPB Q12 JULIA; Protocol Stop: 01/26/19 14:14 Last Admin: 01/26/19 12:24 Dose: 25 mls/hr Ibuprofen (Motrin Tab) 600 mg PO Q6H PRN PRN Reason: Pain, moderate (4-7) Last Admin: 01/26/19 02:20 Dose: 600 mg Insulin Human Lispro (Humalog Med) 0 units SC ACHS [facility]; Protocol Last Admin: 01/26/19 12:22 Dose: 3 unit Levalbuterol HCl (Xopenex) 1.25 mg IH Q2H PRN PRN Reason: Shortness of Breath Last Admin: 01/25/19 05:10 Dose: 1.25 mg Nicotine (Nicoderm Cq) 1 patch TD DAILY PRN PRN Reason: URGE TO SMOKE Last Admin: 01/26/19 09:45 Dose: 1 patch Nystatin (Nystop Topical Powder) 0 gm TOP BID [facility] Last Admin: 01/26/19 12:29 Dose: 1 applic Ondansetron HCl (Zofran Inj) 4 mg IVP Q6H PRN PRN Reason: Nausea/Vomiting Pantoprazole Sodium (Protonix Ec Tab) 40 mg PO 0600 [facility] Last Admin: 01/26/19 05:33 Dose: 40 mg - Labs Labs: 01/26/19 07:15 01/26/19 07:15 PT 14.0 SECONDS (9.4-12.5) H 01/25/19 02:23 INR 1.26 01/25/19 02:23 APTT 39.3 Seconds (26.9-38.3) H 01/25/19 02:23 - Constitutional Appears: Non-toxic, No Acute Distress - Head Exam Head Exam: ATRAUMATIC, NORMOCEPHALIC - Extremities Exam Additional comments: Vascular: DP/PT faintly palpable, CFT < 3 seconds, TG warm to warm, + 2 pitting edema appreciated to b/l lower extremities Ortho: MMT 4/5, pain upon palpation of R posterior calf Neuro: Gross sensation intact, protective sensation diminished Derm: B/L lower extremity weeping edema with superficial ulcerations. B/l elongated, dystrophic nails RLE= Superficial ulceration measuring approx 3 x 1.5 x .1 cm with mixed fibroti c/granular base noted to anterior lateral aspect of leg. + serous drainage, mild malodor, no purulence appreciated, no erythema, no cellulitis appreciated LLE= superficial skin tears appreciated to anterior aspect of leg - Neurological Exam Neurological Exam: Alert, Awake, Oriented x3 - Psychiatric Exam Psychiatric exam: Normal Mood Assessment and Plan - Assessment and Plan (Free Text) Assessment: 53 year old female patient with b/l lower extremity edema, pain, and weeping, with R>L. Plan: Patient seen and evaluated with attending Dr. Anderson Afebrile, WBC 8.3 RLE wound culture taken; pending LE US taken; no DVT Nails debrided without incident Local wound care; maxorb, DSD Will continue to follow <Frances Martinez - Last Filed: 01/29/19 19:32> Objective - Vital Signs/Intake and Output Vital Signs (last 24 hours): Temp Pulse Resp BP Pulse Ox 98.3 F 95 H 18 128/77 95 01/29/19 14:00 01/29/19 14:00 01/29/19 14:00 01/29/19 14:00 01/29/19 14:00 - Medications Medications: Current Medications Acetaminophen (Tylenol 325mg Tab) 650 mg PO Q6H PRN PRN Reason: Pain, Mild (1-3) Last Admin: 01/25/19 05:08 Dose: 650 mg Dextrose (Dextrose 50% Inj) 0 ml IV STAT PRN; Protocol PRN Reason: Hypoglycemia Protocol Enoxaparin Sodium (Lovenox) 40 mg SC DAILY [facility]; Protocol Last Admin: 01/29/19 09:55 Dose: 40 mg Ergocalciferol (Drisdol 50,000 Intl Units Cap) 1 cap PO Q7D JULIA Last Admin: 01/26/19 17:46 Dose: 1 cap Furosemide (Lasix) 40 mg IVP DAILY [facility]ULIA Last Admin: 01/29/19 09:54 Dose: 40 mg Dextrose (Dextrose 5% In Water 1000 Ml) 1,000 mls @ 0 mls/hr IV .Q0M PRN; Protocol PRN Reason: Hypoglycemia Protocol Piperacillin Sod/Tazobactam Sod (Zosyn 3.375 In Ns 100ml) 100 mls @ 25 mls/hr IVPB Q8 [facility]ULIA; Protocol Last Admin: 01/29/19 18:15 Dose: 25 mls/hr Ibuprofen (Motrin Tab) 600 mg PO Q6H PRN PRN Reason: Pain, moderate (4-7) Last Admin: 01/28/19 17:45 Dose: 600 mg Insulin Human Lispro (Humalog Med) 0 units SC [facility]; Protocol Last Admin: 01/29/19 18:11 Dose: 1 unit Levalbuterol HCl (Xopenex) 1.25 mg IH Q2H PRN PRN Reason: Shortness of Breath Last Admin: 01/25/19 05:10 Dose: 1.25 mg Nicotine (Nicoderm Cq) 1 patch TD DAILY PRN PRN Reason: URGE TO SMOKE Last Admin: 01/28/19 09:26 Dose: 1 patch Nystatin (Nystop Topical Powder) 0 gm TOP BID [facility] Last Admin: 01/29/19 18:12 Dose: 1 applic Ondansetron HCl (Zofran Inj) 4 mg IVP Q6H PRN PRN Reason: Nausea/Vomiting Oxycodone HCl (Oxycodone Immediate Release Tab) 30 mg PO Q8H PRN PRN Reason: Pain, severe (8-10) Last Admin: 01/29/19 14:12 Dose: 30 mg Pantoprazole Sodium (Protonix Ec Tab) 40 mg PO 0600 [facility] Last Admin: 01/29/19 09:54 Dose: 40 mg - Labs Labs: 01/29/19 07:00 01/29/19 07:00 PT 14.0 SECONDS (9.4-12.5) H 01/25/19 02:23 INR 1.26 01/25/19 02:23 APTT 39.3 Seconds (26.9-38.3) H 01/25/19 02:23 Attending/Attestation - Attestation I have personally seen and examined this patient.: Yes I have fully participated in the care of the patient.: Yes I have reviewed all pertinent clinical information, including history, physical exam and plan: Yes
[2019-01-26] MEDS ORDERED: Cholecalciferol 1,000 INTLU TAB PO SCH (13:30)
[2019-01-26] MEDS ORDERED: Oxycodone/Acetaminophen 5/325 mg Tab PO PRN (14:42)
[2019-01-26] MEDS: Ergocalciferol 50,000 Intl Units Cap PO SCH (17:46)
--- NOTE | 2019-01-26 20:20 | CARD ---
APPROVED REPORT Date of service: 01/26/2019 EXAM: Two-dimensional and M-mode echocardiogram with Doppler and color Doppler. INDICATION LVFX 2D DIMENSIONS Left Atrium (2D)3.3 (1.6-4.0cm)IVSd1.1 (0.7-1.1cm) LVDd4.7 (3.9-5.9cm)PWd1.2 (0.7-1.1cm) LVDs3.2 (2.5-4.0cm)FS (%) 31.5 % LVEF (%)59.2 (>50%) M-Mode DIMENSIONS Aortic Root3.20 (2.2-3.7cm)Aortic Cusp Exc.1.80 (1.5-2.0cm) Aortic Valve AoV Peak Vwkxanws406.0cm/Frances Peak GR.6mmHg Mitral Valve MV E Auwihesm52.8cm/sMV A Zugwunqy00.9cm/sE/A ratio1.1 TDI E/Lateral E'0.0E/Medial E'0.0 Pulmonary Valve PV Peak Tnkvnbrx43.9cm/sPV Peak Grad.3mmHg Tricuspid Valve TR Peak [id number]/sRAP [id number] Peak Gr.30mmHg [id number] LEFT VENTRICLE The left ventricle is normal size. There is normal left ventricular wall thickness. The left ventricular function is normal. The left ventricular ejection fraction is within the normal range. RIGHT VENTRICLE The right ventricle is normal size. The right ventricular systolic function is normal. ATRIA The left atrium size is normal. The right atrium size is normal. AORTIC VALVE The aortic valve is normal in structure. There is no aortic valvular stenosis. MITRAL VALVE The mitral valve is normal in structure. There is no mitral valve regurgitation noted. TRICUSPID VALVE The tricuspid valve is normal in structure. There is no tricuspid valve regurgitation noted. GREAT VESSELS The aortic root is normal in size. PERICARDIAL EFFUSION There is no pleural effusion. There is no pericardial effusion. <Conclusion> Technically limited study. Poor acoustic windows noted. Chamber sizes appear within normal limits. No obvious valvular abnromalities seen.
--- NOTE | 2019-01-26 22:41 | CP.PCM.PN ---
Subjective - Date & Time of Evaluation Date of Evaluation: 01/26/19 Time of Evaluation: 20:30 - Subjective Subjective: Infectious Disease Follow Up: January 26, 2019 53yo female with PMHx of morbid obesity, BMI>60, COPD, WINTER, OHS, non compliant with CPAP, active smoker 1/2pk per day, presented with worsening LE edema. Pt states that she has not seen a physician in over year, has not taken any medications, and has been non compliant with CPAP; actively smoking. Pt reports she has gained 40-50lbs over the last year, and does not use her CPAP machine because of "malfunction with tubing". Right lower leg/foot wound growing multiple organisms. Final cultures pending. Objective - Vital Signs/Intake and Output Vital Signs (last 24 hours): Temp Pulse Resp BP Pulse Ox 98.4 F 94 H 20 107/70 95 01/26/19 21:10 01/26/19 21:10 01/26/19 21:10 01/26/19 21:10 01/26/19 21:10 Intake and Output: 01/26/19 01/27/19 18:59 06:59 Intake Total 2730 Output Total 500 Balance 2230 - Medications Medications: Current Medications Acetaminophen (Tylenol 325mg Tab) 650 mg PO Q6H PRN PRN Reason: Pain, Mild (1-3) Last Admin: 01/25/19 05:08 Dose: 650 mg Dextrose (Dextrose 50% Inj) 0 ml IV STAT PRN; Protocol PRN Reason: Hypoglycemia Protocol Enoxaparin Sodium (Lovenox) 40 mg SC DAILY [facility]; Protocol Last Admin: 01/26/19 09:44 Dose: 40 mg Ergocalciferol (Drisdol 50,000 Intl Units Cap) 1 cap PO Q7D [facility] Last Admin: 01/26/19 17:46 Dose: 1 cap Furosemide (Lasix) 40 mg IVP DAILY [facility] Last Admin: 01/26/19 12:24 Dose: 40 mg Dextrose (Dextrose 5% In Water 1000 Ml) 1,000 mls @ 0 mls/hr IV .Q0M PRN; Protocol PRN Reason: Hypoglycemia Protocol Sodium Chloride (Sodium Chloride 0.9%) 1,000 mls @ 100 mls/hr IV .Q10H [facility] Last Admin: 01/26/19 09:46 Dose: 100 mls/hr Vancomycin HCl (Vancomycin 1gm) 1 gm in 250 mls @ 167 mls/hr IVPB Q12H [facility]; Protocol Last Admin: 01/26/19 21:56 Dose: 167 mls/hr Ibuprofen (Motrin Tab) 600 mg PO Q6H PRN PRN Reason: Pain, moderate (4-7) Last Admin: 01/26/19 02:20 Dose: 600 mg Insulin Human Lispro (Humalog Med) 0 units SC ACHS [facility]; Protocol Last Admin: 01/26/19 21:36 Dose: Not Given Levalbuterol HCl (Xopenex) 1.25 mg IH Q2H PRN PRN Reason: Shortness of Breath Last Admin: 01/25/19 05:10 Dose: 1.25 mg Nicotine (Nicoderm Cq) 1 patch TD DAILY PRN PRN Reason: URGE TO SMOKE Last Admin: 01/26/19 09:45 Dose: 1 patch Nystatin (Nystop Topical Powder) 0 gm TOP BID [facility] Last Admin: 01/26/19 17:48 Dose: 1 applic Ondansetron HCl (Zofran Inj) 4 mg IVP Q6H PRN PRN Reason: Nausea/Vomiting Oxycodone/Acetaminophen (Percocet 5/325 Mg Tab) 1 tab PO Q8H PRN PRN Reason: Pain, severe (8-10) Stop: 01/29/19 14:43 Pantoprazole Sodium (Protonix Ec Tab) 40 mg PO 0600 [facility] Last Admin: 01/26/19 05:33 Dose: 40 mg - Labs Labs: 01/26/19 07:15 01/26/19 07:15 PT 14.0 SECONDS (9.4-12.5) H 01/25/19 02:23 INR 1.26 01/25/19 02:23 APTT 39.3 Seconds (26.9-38.3) H 01/25/19 02:23 - Constitutional Appears: Non-toxic, No Acute Distress, Chronically Ill - Head Exam Head Exam: ATRAUMATIC, NORMOCEPHALIC - Eye Exam Eye Exam: EOMI, PERRL Pupil Exam: NORMAL ACCOMODATION, PERRL - ENT Exam ENT Exam: Mucous Membranes Moist, Normal External Ear Exam, TM's Normal Bilaterally - Neck Exam Neck Exam: Full ROM, Normal Inspection - Respiratory Exam Respiratory Exam: Clear to Ausculation Bilateral, NORMAL BREATHING PATTERN. absent: Rales, Rhonchi, Wheezes - Cardiovascular Exam Cardiovascular Exam: REGULAR RHYTHM, RRR, +S1, +S2 - GI/Abdominal Exam GI & Abdominal Exam: Soft, Normal Bowel Sounds. absent: Distended, Tenderness - Extremities Exam Extremities Exam: Full ROM, Joint Swelling, Pedal Edema Additional comments: Vascular: DP/PT faintly palpable, CFT < 3 seconds, TG warm to warm, + 2 pitting edema appreciated to b/l lower extremities Ortho: MMT 4/5, pain upon palpation of R posterior calf Neuro: Gross sensation intact, protective sensation diminished Derm: B/L lower extremity weeping edema with superficial ulcerations. RLE= Superficial ulceration measuring approx 3 x 1.5 x .1 cm with mixed fibrotic/granular base noted to anterior lateral aspect of leg. + serous drai nage, mild malodor, no purulence appreciated, no erythema, no cellulitis appreciated. Strong odor from right lower leg. LLE= superficial skin tears appreciated to anterior aspect of leg - Neurological Exam Neurological Exam: Alert, Awake, CN II-XII Intact, Oriented x3 - Psychiatric Exam Psychiatric exam: Normal Affect, Normal Mood - Skin Skin Exam: Intact, Normal Color Assessment and Plan - Assessment and Plan (Free Text) Assessment: 53 yo female with multiple medical issues that include DM, HTN, morbid obesity, and WINTER presenting with significant weight gain of 51 pounds in the past month and significant swelling of the bilateral lower extremities. Started on Zosyn and IV Vancomycin. Monitor renal function. Franco cultures pending. Wound cultures pending but growing gram positive cocci in clusters and gram negative rods. Patient likely needs diuresis as well. Noted the patient has an abdominal mass on CT scan. Supportive care Thank you for allowing me to participate in the care of the patient, we will follow with you.
[2019-01-27] MEDS ORDERED: Morphine 2 mg/ml ISec IVP ONE (05:23)
[2019-01-27] MEDS: Piperacillin/Tazobact 3.375 gm 100 ML IVPB SCH ×3 (05:29→22:23)
[2019-01-27] MEDS: Pantoprazole 40 mg EC Tab PO SCH (05:29)
[2019-01-27 07:46] LABS: BASO # 0.01 K/mm3 (0.0-2.0); BASO % 0.1 % (0.0-3.0); EOS # 0.3 (0.0-0.7); EOS % 3.9 % (1.5-5.0); HEMOGLOBIN 11.7 g/dL (12.0-16.0); LYMPH # 0.7 (1.2-3.4); LYMPH % 9.2 % (22.0-35.0); MEAN CELL VOLUME 80.7 fl (80.0-105.0); MEAN CORPUSCULAR HEMOGLOBIN 24.2 pg (25.0-35.0); MEAN PLATELET VOLUME 9.9 fl (7.0-11.0); MONO # 0.7 (0.1-0.6); MONO % 8.4 % (1.0-6.0); RBC 4.83 10^6/uL (3.5-6.1); RED CELL DISTRIBUTION WIDTH 17.5 % (11.5-14.5); WHITE BLOOD COUNT 7.7 10^3/uL (4.5-11.0)
[2019-01-27 08:00] LABS: ALB/GLOB RATIO 0.9 (1.1-1.8); ALBUMIN 3.7 g/dL (3.0-4.8); ALT/SGPT 10 U/L (7-56); AST/SGOT 28 U/L (14-36); BLOOD UREA NITROGEN 10 mg/dL (7-21); CALCIUM 8.8 mg/dL (8.4-10.5); GFR NON-AFRICAN AMERICAN > 60
[2019-01-27] MEDS: Insulin Lispro (humaLOG) MEDIUM Coverage SC SCH ×4 (08:00→22:25)
[2019-01-27] MEDS: Vancomycin 1gm in NS 250ml 1 GM/250 ML BAG IVPB SCH ×2 (09:33→21:50)
[2019-01-27] MEDS: Enoxaparin 40 mg Syringe SC SCH (09:33)
[2019-01-27] MEDS: Nystatin 100,000 Units/gm Topical Pow(15 gm) TOP SCH ×2 (10:00→18:03)
--- NOTE | 2019-01-27 12:21 | CP.PCM.PN ---
<Nikita Boss - Last Filed: 01/27/19 12:22> Subjective - Date & Time of Evaluation Date of Evaluation: 01/27/19 Time of Evaluation: 08:00 - Subjective Subjective: Nikita Boss PGY-1 Progress Note for Hospitalist Service Patient seen and evaluated at bedside. Patient was reportedly in pain overnight. Patient slept sitting up in recliner chair. Patient currently respirating on room air without difficulty. Patient reports leg pain and mild shortness of breath. Denies chest pain, palpitations, dizziness and headaches. Objective - Vital Signs/Intake and Output Vital Signs (last 24 hours): Temp Pulse Resp BP Pulse Ox 98.6 F 101 H 17 162/68 H 95 01/27/19 06:00 01/27/19 06:00 01/27/19 06:00 01/27/19 09:32 01/27/19 06:00 Intake and Output: 01/27/19 01/27/19 06:59 18:59 Intake Total 2730 Output Total 500 Balance 2230 - Medications Medications: Current Medications Acetaminophen (Tylenol 325mg Tab) 650 mg PO Q6H PRN PRN Reason: Pain, Mild (1-3) Last Admin: 01/25/19 05:08 Dose: 650 mg Dextrose (Dextrose 50% Inj) 0 ml IV STAT PRN; Protocol PRN Reason: Hypoglycemia Protocol Enoxaparin Sodium (Lovenox) 40 mg SC DAILY [facility]; Protocol Last Admin: 01/27/19 09:33 Dose: 40 mg Ergocalciferol (Drisdol 50,000 Intl Units Cap) 1 cap PO Q7D [facility] Last Admin: 01/26/19 17:46 Dose: 1 cap Furosemide (Lasix) 40 mg IVP DAILY [facility] Last Admin: 01/27/19 09:32 Dose: 40 mg Dextrose (Dextrose 5% In Water 1000 Ml) 1,000 mls @ 0 mls/hr IV .Q0M PRN; Pr otocol PRN Reason: Hypoglycemia Protocol Sodium Chloride (Sodium Chloride 0.9%) 1,000 mls @ 100 mls/hr IV .Q10H [facility] Last Admin: 01/26/19 09:46 Dose: 100 mls/hr Vancomycin HCl (Vancomycin 1gm) 1 gm in 250 mls @ 167 mls/hr IVPB Q12H [facility]; Protocol Last Admin: 01/27/19 09:33 Dose: 167 mls/hr Piperacillin Sod/Tazobactam Sod (Zosyn 3.375 In Ns 100ml) 100 mls @ 25 mls/hr IVPB Q8 [facility]; Protocol Last Admin: 01/27/19 05:29 Dose: 25 mls/hr Ibuprofen (Motrin Tab) 600 mg PO Q6H PRN PRN Reason: Pain, moderate (4-7) Last Admin: 01/26/19 02:20 Dose: 600 mg Insulin Human Lispro (Humalog Med) 0 units SC ACHS [facility]; Protocol Last Admin: 01/27/19 08:00 Dose: Not Given Levalbuterol HCl (Xopenex) 1.25 mg IH Q2H PRN PRN Reason: Shortness of Breath Last Admin: 01/25/19 05:10 Dose: 1.25 mg Nicotine (Nicoderm Cq) 1 patch TD DAILY PRN PRN Reason: URGE TO SMOKE Last Admin: 01/27/19 09:33 Dose: 1 patch Nystatin (Nystop Topical Powder) 0 gm TOP BID [facility] Last Admin: 01/26/19 17:48 Dose: 1 applic Ondansetron HCl (Zofran Inj) 4 mg IVP Q6H PRN PRN Reason: Nausea/Vomiting Oxycodone HCl (Oxycodone Immediate Release Tab) 15 mg PO Q6H PRN PRN Reason: Pain, severe (8-10) Pantoprazole Sodium (Protonix Ec Tab) 40 mg PO 0600 [facility] Last Admin: 01/27/19 05:29 Dose: 40 mg - Labs Labs: 01/27/19 07:20 01/27/19 07:20 PT 14.0 SECONDS (9.4-12.5) H 01/25/19 02:23 INR 1.26 01/25/19 02:23 APTT 39.3 Seconds (26.9-38.3) H 01/25/19 02:23 - Additional Findings Additional findings: Appears: Unkempt, Chronically Ill Additional comments: morbidly obese, appears uncomfortable - Head Exam Head Exam: ATRAUMATIC, NORMOCEPHALIC - Eye Exam Eye Exam: EOMI, PERRL. absent: Scleral icterus - ENT Exam ENT Exam: Mucous Membranes Dry - Neck Exam Neck exam: Negative for: Lymphadenopathy - Respiratory Exam Respiratory Exam: Wheezes (faint end expiratory wheezes b/l). absent: Accessory Muscle Use, Rales, Rhonchi, Respiratory Distress - Cardiovascular Exam Cardiovascular Exam: REGULAR RHYTHM, RRR, +S1, +S2. absent: Diastolic murmur, Gallop, Rubs, Systolic Murmur - GI/Abdominal Exam GI & Abdominal Exam: Mass (mass palpated R mid abdominal region), Normal Bowel Sounds, Tenderness (diffuse tenderness to palpation). absent: Guarding Additional comments: Obese with striae, R sided wound under abdominal folds - Exam External exam: Erythema, Lesions Additional comments: Suprapubic region appears edematous, R-sided foul smelling discharge between R abdomen and leg - Extremities Exam Extremities exam: Positive for: pedal edema (b/l pitting edema), tenderness (dif fusely tender to palpation of b/l LE), pedal pulses present. Negative for: full ROM Additional comments: Wound seen on R medial foot approximately 1 cm, R lateral foot wound 3-4 cm, wound on posterior R thigh measures approximately 1 cm. Diffuse xerosis cutis b/l. Poor hygiene. Venous stasis dermatitis. L wrap currently being wrapped by podiatry team - Neurological Exam Neurological exam: Alert, Oriented x3 - Psychiatric Exam Psychiatric exam: Anxious - Skin Skin Exam: Erythema, Rash (b/l LE) Assessment and Plan - Assessment and Plan (Free Text) Assessment: 53 yo F with PMH of COPD, WINTER, BMI of 64, and DM2 (last A1c 6.9) presents with worsening b/l LE edema, erythema presents with inability to ambulate because of LE swelling. She is admitted for management of b/l LE cellulitis/wounds. Plan: B/l LE venous stasis changes with ulceration Afebrile, no leukocytosis but wounds are non-healing Wound cx from foot and leg growing Staph aureus and enterobacter F/u blood cx- negative after 48 hours Wound care consult placed, all recs appreciated Podiatry consult placed for foot care/management of 2 foot ulcers - recs appreciated Procal 0.09, TSH 2.01 B/l LE doppler US negative for DVT BNP 78, Echo shows EF 59% and RVSP of 40, concerning for component of pulm. hypertension ID consult placed, all recs appreciated - Vanc and Zosyn currently, awaiting changes based on sensitivities Continue with Furosemide 40 mg IVP PT recs appreciated Foot/posterior thigh ulcers F/u wound cx x 3 Poorly controlled DM2 ISS while admitted HgbA1c 9.0 COPD Xopenex PRN for SOB No active issues WINTER Likely has component of obesity hypoventilation syndrome Pulmonology consult placed, all recs appreciated Tobacco abuse Nicotine patch PRN Advise patient regularly on importance of abstinence Low Vitamin D <12 in serum 50,000 Vit D supplementation once a week BMI 64 Sander Setter referral placed, all recs appreciated Will need counseling regarding importance of weight loss Dispo: SW/CM recs for CPAP fittings on discharge DVT/GI PPX: Lovenox/protonix Full Code HH, diabetic diet Monitor on med/surg Dispo: PT recs appreciated Patient seen, case reviewed and plan approved by Dr. Jose Malave. Nikita Boss, PGY-1 <Tatum Malave R - Last Filed: 01/27/19 16:26> Objective - Vital Signs/Intake and Output Vital Signs (last 24 hours): Temp Pulse Resp BP Pulse Ox 99 F 97 H 19 148/80 94 L 01/27/19 15:33 01/27/19 15:33 01/27/19 15:33 01/27/19 15:33 01/27/19 15:33 Intake and Output: 01/27/19 01/27/19 06:59 18:59 Intake Total 2730 Output Total 500 Balance 2230 - Medications Medications: Current Medications Acetaminophen (Tylenol 325mg Tab) 650 mg PO Q6H PRN PRN Reason: Pain, Mild (1-3) Last Admin: 01/25/19 05:08 Dose: 650 mg Dextrose (Dextrose 50% Inj) 0 ml IV STAT PRN; Protocol PRN Reason: Hypoglycemia Protocol Enoxaparin Sodium (Lovenox) 40 mg SC DAILY [facility]; Protocol Last Admin: 01/27/19 09:33 Dose: 40 mg Ergocalciferol (Drisdol 50,000 Intl Units Cap) 1 cap PO Q7D [facility] Last Admin: 01/26/19 17:46 Dose: 1 cap Furosemide (Lasix) 40 mg IVP DAILY [facility] Last Admin: 01/27/19 09:32 Dose: 40 mg Dextrose (Dextrose 5% In Water 1000 Ml) 1,000 mls @ 0 mls/hr IV .Q0M PRN; Protocol PRN Reason: Hypoglycemia Protocol Vancomycin HCl (Vancomycin 1gm) 1 gm in 250 mls @ 167 mls/hr IVPB Q12H [facility]; Protocol Last Admin: 01/27/19 09:33 Dose: 167 mls/hr Piperacillin Sod/Tazobactam Sod (Zosyn 3.375 In Ns 100ml) 100 mls @ 25 mls/hr IVPB Q8 [facility]; Protocol Last Admin: 01/27/19 15:53 Dose: 25 mls/hr Ibuprofen (Motrin Tab) 600 mg PO Q6H PRN PRN Reason: Pain, moderate (4-7) Last Admin: 01/26/19 02:20 Dose: 600 mg Insulin Human Lispro (Humalog Med) 0 units SC ACHS [facility]; Protocol Last Admin: 01/27/19 12:00 Dose: Not Given Levalbuterol HCl (Xopenex) 1.25 mg IH Q2H PRN PRN Reason: Shortness of Breath Last Admin: 01/25/19 05:10 Dose: 1.25 mg Nicotine (Nicoderm Cq) 1 patch TD DAILY PRN PRN Reason: URGE TO SMOKE Last Admin: 01/27/19 09:33 Dose: 1 patch Nystatin (Nystop Topical Powder) 0 gm TOP BID [facility] Last Admin: 01/26/19 17:48 Dose: 1 applic Ondansetron HCl (Zofran Inj) 4 mg IVP Q6H PRN PRN Reason: Nausea/Vomiting Oxycodone HCl (Oxycodone Immediate Release Tab) 15 mg PO Q6H PRN PRN Reason: Pain, severe (8-10) Pantoprazole Sodium (Protonix Ec Tab) 40 mg PO 0600 [facility] Last Admin: 01/27/19 05:29 Dose: 40 mg - Labs Labs: 01/27/19 07:20 01/27/19 07:20 PT 14.0 SECONDS (9.4-12.5) H 01/25/19 02:23 INR 1.26 01/25/19 02:23 APTT 39.3 Seconds (26.9-38.3) H 01/25/19 02:23 Attending/Attestation - Attestation I have personally seen and examined this patient.: Yes I have fully participated in the care of the patient.: Yes I have reviewed all pertinent clinical information, including history, physical exam and plan: Yes Notes (Text): Patient seen and examined by me with resident at 11AM on 01/27/19. Case including HPI, physical exam, and assessment and plan discussed with resident. Agree with above with following additions/corrections. Patient is 53-year-old female past medical history significant for COPD, shortness to sleep apnea noncompliant with CPAP, morbid obesity, type 2 diabetes, and noncompliance with medications that presented to the emergency room with bilateral lower extremity swelling, redness, and pain. Patient states that she is feeling ok. Still with pain in her lower extremities. Patient states she wants to try to walk with physical therapy again. No abdominal pain. No nausea or vomiting. No chest pain or palpitations. No shortness of breath. No headaches or dizziness. No fevers or chills. No dysuria. Physical exam: General: Awake and alert, sitting up in chair in no acute distress. Poor hygiene HEENT: Normocephalic, atraumatic, Extraocular muscles intact, pupils equal and reactive, no scleral icterus. Oropharynx is pink and moist. Neck is supple. Cardiovascular: Normal rhythm. Normal S1 and S2. No murmurs, rubs, or gallops appreciated. Pulmonary: Normal respiratory effort. Decreased breath sounds. No rhonchi, rales, or wheezing appreciated. Gastrointestinal: Soft. Nontender. Nondistended. Positive bowel sounds all 4 quadrants. No guarding. Morbidly obsese abdomen. Musculoskeletal: Moves all extremities. Bilateral lower extremity edema, mild erythema, and tenderness. Dressing on wounds clean, dry, and intact. Central nervous system: AAO x 3 Dermatologic: Skin warm and dry. Positive candidal rash under abdominal folds. Diffuse xerosis cutis. Bilateral lower extremity venous stasis dermatitis. Assessment and plan: Patient is 53-year-old female past medical history significant for COPD, shortness to sleep apnea noncompliant with CPAP, morbid obesity, type 2 diabetes, and noncompliance with medications that presented to the emergency room with bilateral lower extremity swelling, redness, and pain. 1. Bilateral lower extremity cellulitis, edema. Right lower extremity wounds, right posterior thigh wound. Continue with wound care. Podiatry following, recommendations appreciated. Bilateral lower extremity venous dopplers negative, very limited study. ID following, recommendations appreciated. Wound cultures from right foot and right leg positive for Enterobacter Cloacae and Staphyloc occus aureus. Blood cultures with no growth. Continue Zosyn and Vancomycin. Continue Lasix. Continue physical therapy. Procalcitonin 0.09. 2. Poorly controlled DM2. Continue insulin sliding scale. HgbA1C 9. Continue to monitor accuchecks. Diabetic education. 3. COPD. WINTER. Pulmonary following, recommendations appreciated. Continue CPAP at bedtime. Continue Xopenex as needed. Not in acute COPD exacerbation. 2d Echo per environmental projects advisor showed technically limited study, poor acoustic windows noted, chamber sizes appear within normal limits, no obvious valvular abnormality seen, EF approximately 59.2%. 4. Tobacco abuse. Counseled at length on cessation. Continue nicoderm. 5. Noncompliance. Patient has not been taking medications or following with a doctor for over a year. Patient counseled at length on importance of taking medications and following with a primary care doctor. 6. Vitamin D deficiency. Continue 50,000 IU weekly. 7. Morbid Obesity. BMI 64. Sander Setter consulted. Diet and exercise discussed at length with patient. 8. GI/DVT prophylaxis. Lovenox/Protonix. 9. Patient is a full code. Case was discussed in detail with the patient regarding current diagnosis and treatment plan. All questions answered.
--- NOTE | 2019-01-27 13:22 | CP.PCM.PN ---
<Breanne Olson - Last Filed: 01/27/19 13:19> Subjective - Date & Time of Evaluation Date of Evaluation: 01/27/19 Time of Evaluation: 13:19 - Subjective Subjective: Podiatry Consult Note: Dr. Anderson Patient seen and evaluated at bedside for R lower extremity pain and weeping edema. Patient states that her dressing is soaked today and there has been an increase in drainage from her leg overnight. She denies any new pedal com plaints. Denies nausea/vomiting/fever/chest pain, admits to shortness of breath. Objective - Vital Signs/Intake and Output Vital Signs (last 24 hours): Temp Pulse Resp BP Pulse Ox 98.6 F 101 H 17 162/68 H 95 01/27/19 06:00 01/27/19 06:00 01/27/19 06:00 01/27/19 09:32 01/27/19 06:00 Intake and Output: 01/27/19 01/27/19 06:59 18:59 Intake Total 2730 Output Total 500 Balance 2230 - Medications Medications: Current Medications Acetaminophen (Tylenol 325mg Tab) 650 mg PO Q6H PRN PRN Reason: Pain, Mild (1-3) Last Admin: 01/25/19 05:08 Dose: 650 mg Dextrose (Dextrose 50% Inj) 0 ml IV STAT PRN; Protocol PRN Reason: Hypoglycemia Protocol Enoxaparin Sodium (Lovenox) 40 mg SC DAILY [facility]; Protocol Last Admin: 01/27/19 09:33 Dose: 40 mg Ergocalciferol (Drisdol 50,000 Intl Units Cap) 1 cap PO Q7D [facility] Last Admin: 01/26/19 17:46 Dose: 1 cap Furosemide (Lasix) 40 mg IVP DAILY [facility] Last Admin: 01/27/19 09:32 Dose: 40 mg Dextrose (Dextrose 5% In Water 1000 Ml) 1,000 mls @ 0 mls/hr IV .Q0M PRN; Protocol PRN Reason: Hypoglycemia Protocol Sodium Chloride (Sodium Chloride 0.9%) 1,000 mls @ 100 mls/hr IV .Q10H [facility] Last Admin: 01/26/19 09:46 Dose: 100 mls/hr Vancomycin HCl (Vancomycin 1gm) 1 gm in 250 mls @ 167 mls/hr IVPB Q12H [facility]; Protocol Last Admin: 01/27/19 09:33 Dose: 167 mls/hr Piperacillin Sod/Tazobactam Sod (Zosyn 3.375 In Ns 100ml) 100 mls @ 25 mls/hr IVPB Q8 [facility]; Protocol Last Admin: 01/27/19 05:29 Dose: 25 mls/hr Ibuprofen (Motrin Tab) 600 mg PO Q6H PRN PRN Reason: Pain, moderate (4-7) Last Admin: 01/26/19 02:20 Dose: 600 mg Insulin Human Lispro (Humalog Med) 0 units SC ACHS [facility]; Protocol Last Admin: 01/27/19 08:00 Dose: Not Given Levalbuterol HCl (Xopenex) 1.25 mg IH Q2H PRN PRN Reason: Shortness of Breath Last Admin: 01/25/19 05:10 Dose: 1.25 mg Nicotine (Nicoderm Cq) 1 patch TD DAILY PRN PRN Reason: URGE TO SMOKE Last Admin: 01/27/19 09:33 Dose: 1 patch Nystatin (Nystop Topical Powder) 0 gm TOP BID [facility] Last Admin: 01/26/19 17:48 Dose: 1 applic Ondansetron HCl (Zofran Inj) 4 mg IVP Q6H PRN PRN Reason: Nausea/Vomiting Oxycodone HCl (Oxycodone Immediate Release Tab) 15 mg PO Q6H PRN PRN Reason: Pain, severe (8-10) Pantoprazole Sodium (Protonix Ec Tab) 40 mg PO 0600 [facility] Last Admin: 01/27/19 05:29 Dose: 40 mg - Labs Labs: 01/27/19 07:20 01/27/19 07:20 PT 14.0 SECONDS (9.4-12.5) H 01/25/19 02:23 INR 1.26 01/25/19 02:23 APTT 39.3 Seconds (26.9-38.3) H 01/25/19 02:23 - Constitutional Appears: Non-toxic, No Acute Distress - Head Exam Head Exam: ATRAUMATIC, NORMOCEPHALIC - Extremities Exam Additional comments: Vascular: DP/PT faintly palpable, CFT < 3 seconds, TG warm to warm, + 2 pitting edema appreciated to b/l lower extremities Ortho: MMT 4/5, pain upon palpation of R posterior calf Neuro: Gross sensation intact, protective sensation diminished Derm: B/L lower extremity weeping edema with superficial ulcerations. Lichenification appreciated RLE= Superficial ulceration measuring approx 3 x 1.5 x .1 cm with mixed fibrotic/granular base noted to anterior lateral aspect of leg. + serous drainage, mild malodor, no purulence appreciated, no erythema, no cellulitis appreciated LLE= no open lesions at this time, no erythema, no cellulitis - Neurological Exam Neurological Exam: Alert, Awake, Oriented x3 - Psychiatric Exam Psychiatric exam: Normal Affect, Normal Mood Assessment and Plan - Assessment and Plan (Free Text) Assessment: 53F with R lower extremity pain and weeping edema Plan: Patient seen and evaluated with attending Dr. Anderson Afebrile, WBC 7.7 RLE wound culture taken; Enterobacter, Staph aureus LE US taken; no DVT Local wound care; maxorb, DSD Educated on importance of elevating b/l lower extremities Will continue to follow <Jhonathan Anderson - Last Filed: 01/27/19 18:23> Objective - Vital Signs/Intake and Output Vital Signs (last 24 hours): Temp Pulse Resp BP Pulse Ox 99 F 97 H 19 148/80 94 L 01/27/19 15:33 01/27/19 15:33 01/27/19 15:33 01/27/19 15:33 01/27/19 15:33 Intake and Output: 01/27/19 01/27/19 06:59 18:59 Intake Total 2730 Output Total 500 Balance 2230 - Medications Medications: Current Medications Acetaminophen (Tylenol 325mg Tab) 650 mg PO Q6H PRN PRN Reason: Pain, Mild (1-3) Last Admin: 01/25/19 05:08 Dose: 650 mg Dextrose (Dextrose 50% Inj) 0 ml IV STAT PRN; Protocol PRN Reason: Hypoglycemia Protocol Enoxaparin Sodium (Lovenox) 40 mg SC DAILY [facility]; Protocol Last Admin: 01/27/19 09:33 Dose: 40 mg Ergocalciferol (Drisdol 50,000 Intl Units Cap) 1 cap PO Q7D [facility] Last Admin: 01/26/19 17:46 Dose: 1 cap Furosemide (Lasix) 40 mg IVP DAILY [facility] Last Admin: 01/27/19 09:32 Dose: 40 mg Dextrose (Dextrose 5% In Water 1000 Ml) 1,000 mls @ 0 mls/hr IV .Q0M PRN; Protocol PRN Reason: Hypoglycemia Protocol Vancomycin HCl (Vancomycin 1gm) 1 gm in 250 mls @ 167 mls/hr IVPB Q12H [facility]; Protocol Last Admin: 01/27/19 09:33 Dose: 167 mls/hr Piperacillin Sod/Tazobactam Sod (Zosyn 3.375 In Ns 100ml) 100 mls @ 25 mls/hr IVPB Q8 [facility]; Protocol Last Admin: 01/27/19 15:53 Dose: 25 mls/hr Ibuprofen (Motrin Tab) 600 mg PO Q6H PRN PRN Reason: Pain, moderate (4-7) Last Admin: 01/26/19 02:20 Dose: 600 mg Insulin Human Lispro (Humalog Med) 0 units SC ACHS [facility]; Protocol Last Admin: 01/27/19 18:02 Dose: 1 unit Levalbuterol HCl (Xopenex) 1.25 mg IH Q2H PRN PRN Reason: Shortness of Breath Last Admin: 01/25/19 05:10 Dose: 1.25 mg Nicotine (Nicoderm Cq) 1 patch TD DAILY PRN PRN Reason: URGE TO SMOKE Last Admin: 01/27/19 09:33 Dose: 1 patch Nystatin (Nystop Topical Powder) 0 gm TOP BID [facility] Last Admin: 01/27/19 18:03 Dose: 1 applic Ondansetron HCl (Zofran Inj) 4 mg IVP Q6H PRN PRN Reason: Nausea/Vomiting Oxycodone HCl (Oxycodone Immediate Release Tab) 15 mg PO Q6H PRN PRN Reason: Pain, severe (8-10) Last Admin: 01/27/19 18:10 Dose: 15 mg Pantoprazole Sodium (Protonix Ec Tab) 40 mg PO 0600 [facility] Last Admin: 01/27/19 05:29 Dose: 40 mg - Labs Labs: 01/27/19 07:20 01/27/19 07:20 PT 14.0 SECONDS (9.4-12.5) H 01/25/19 02:23 INR 1.26 01/25/19 02:23 APTT 39.3 Seconds (26.9-38.3) H 01/25/19 02:23 Attending/Attestation - Attestation I have personally seen and examined this patient.: Yes I have fully participated in the care of the patient.: Yes I have reviewed all pertinent clinical information, including history, physical exam and plan: Yes
--- NOTE | 2019-01-27 17:25 | CP.PCM.PN ---
Subjective - Date & Time of Evaluation Date of Evaluation: 01/27/19 Time of Evaluation: 14:00 - Subjective Subjective: Infectious Disease Follow Up: January 27, 2019 53yo female with PMHx of morbid obesity, BMI>60, COPD, WINTER, OHS, non compliant with CPAP, active smoker 1/2pk per day, presented with worsening LE edema. Pt states that she has not seen a physician in over year, has not taken any medications, and has been non compliant with CPAP; actively smoking. Pt reports she has gained 40-50lbs over the last year, and does not use her CPAP machine because of "malfunction with tubing". Right lower leg/foot wound growing multiple organisms. MSSA and Enterobacter in wound cultures. Objective - Vital Signs/Intake and Output Vital Signs (last 24 hours): Temp Pulse Resp BP Pulse Ox 99 F 97 H 19 148/80 94 L 01/27/19 15:33 01/27/19 15:33 01/27/19 15:33 01/27/19 15:33 01/27/19 15:33 Intake and Output: 01/27/19 01/27/19 06:59 18:59 Intake Total 2730 Output Total 500 Balance 2230 - Medications Medications: Current Medications Acetaminophen (Tylenol 325mg Tab) 650 mg PO Q6H PRN PRN Reason: Pain, Mild (1-3) Last Admin: 01/25/19 05:08 Dose: 650 mg Dextrose (Dextrose 50% Inj) 0 ml IV STAT PRN; Protocol PRN Reason: Hypoglycemia Protocol Enoxaparin Sodium (Lovenox) 40 mg SC DAILY [facility]; Protocol Last Admin: 01/27/19 09:33 Dose: 40 mg Ergocalciferol (Drisdol 50,000 Intl Units Cap) 1 cap PO Q7D [facility] Last Admin: 01/26/19 17:46 Dose: 1 cap Furosemide (Lasix) 40 mg IVP DAILY [facility] Last Admin: 01/27/19 09:32 Dose: 40 mg Dextrose (Dextrose 5% In Water 1000 Ml) 1,000 mls @ 0 mls/hr IV .Q0M PRN; Protocol PRN Reason: Hypoglycemia Protocol Vancomycin HCl (Vancomycin 1gm) 1 gm in 250 mls @ 167 mls/hr IVPB Q12H [facility]; Protocol Last Admin: 01/27/19 09:33 Dose: 167 mls/hr Piperacillin Sod/Tazobactam Sod (Zosyn 3.375 In Ns 100ml) 100 mls @ 25 mls/hr IVPB Q8 [facility]; Protocol Last Admin: 01/27/19 15:53 Dose: 25 mls/hr Ibuprofen (Motrin Tab) 600 mg PO Q6H PRN PRN Reason: Pain, moderate (4-7) Last Admin: 01/26/19 02:20 Dose: 600 mg Insulin Human Lispro (Humalog Med) 0 units SC ACHS [facility]; Protocol Last Admin: 01/27/19 12:00 Dose: Not Given Levalbuterol HCl (Xopenex) 1.25 mg IH Q2H PRN PRN Reason: Shortness of Breath Last Admin: 01/25/19 05:10 Dose: 1.25 mg Nicotine (Nicoderm Cq) 1 patch TD DAILY PRN PRN Reason: URGE TO SMOKE Last Admin: 01/27/19 09:33 Dose: 1 patch Nystatin (Nystop Topical Powder) 0 gm TOP BID [facility] Last Admin: 01/26/19 17:48 Dose: 1 applic Ondansetron HCl (Zofran Inj) 4 mg IVP Q6H PRN PRN Reason: Nausea/Vomiting Oxycodone HCl (Oxycodone Immediate Release Tab) 15 mg PO Q6H PRN PRN Reason: Pain, severe (8-10) Pantoprazole Sodium (Protonix Ec Tab) 40 mg PO 0600 [facility] Last Admin: 01/27/19 05:29 Dose: 40 mg - Labs Labs: 01/27/19 07:20 01/27/19 07:20 PT 14.0 SECONDS (9.4-12.5) H 01/25/19 02:23 INR 1.26 01/25/19 02:23 APTT 39.3 Seconds (26.9-38.3) H 01/25/19 02:23 - Constitutional Appears: Non-toxic, No Acute Distress, Chronically Ill - Head Exam Head Exam: ATRAUMATIC, NORMOCEPHALIC - Eye Exam Eye Exam: EOMI, PERRL Pupil Exam: NORMAL ACCOMODATION, PERRL - ENT Exam ENT Exam: Mucous Membranes Moist, Normal External Ear Exam, TM's Normal Bilaterally - Neck Exam Neck Exam: Full ROM, Normal Inspection - Respiratory Exam Respiratory Exam: Clear to Ausculation Bilateral, NORMAL BREATHING PATTERN. absent: Rales, Rhonchi, Wheezes - Cardiovascular Exam Cardiovascular Exam: REGULAR RHYTHM, RRR, +S1, +S2 - GI/Abdominal Exam GI & Abdominal Exam: Soft, Normal Bowel Sounds. absent: Distended, Tenderness - Extremities Exam Extremities Exam: Full ROM, Joint Swelling, Pedal Edema Additional comments: Vascular: DP/PT faintly palpable, CFT < 3 seconds, TG warm to warm, + 2 pitting edema appreciated to b/l lower extremities Ortho: MMT 4/5, pain upon palpation of R posterior calf Neuro: Gross sensation intact, protective sensation diminished Derm: B/L lower extremity weeping edema with superficial ulcerations. RLE= Superficial ulceration measuring approx 3 x 1.5 x .1 cm with mixed fibrotic/granular base noted to anterior lateral aspect of leg. + serous drainage, mild malodor, no purulence appreciated, no erythema, no cellulitis appreciated. Strong odor from right lower leg. LLE= superficial skin tears appreciated to anterior aspect of leg - Neurological Exam Neurological Exam: Alert, Awake, CN II-XII Intact, Oriented x3 - Psychiatric Exam Psychiatric exam: Normal Affect, Normal Mood - Skin Additional comments: As above. Assessment and Plan - Assessment and Plan (Free Text) Assessment: 53 yo female with multiple medical issues that include DM, HTN, morbid obesity, and WINTER presenting with significant weight gain of 51 pounds in the past month and significant swelling of the bilateral lower extremities. Started on Zosyn and IV Vancomycin. Monitor renal function. Franco cultures pending. Wound cultures pending but growing gram positive cocci in clusters and gram negative rods. Identification was MSSA and Enterobacter. Continue with Zosyn alone at this point while in hospital. Patient likely needs diuresis as well. Noted the patient has an abdominal mass on CT scan. Supportive care Thank you for allowing me to participate in the care of the patient, we will follow with you.
[2019-01-27] MEDS: oxyCODONE 15 mg Immediate Release Tab PO PRN ×2 (18:10→23:12)
[2019-01-28] MEDS: Pantoprazole 40 mg EC Tab PO SCH (05:56)
[2019-01-28] MEDS: oxyCODONE 15 mg Immediate Release Tab PO PRN ×3 (05:57→20:11)
[2019-01-28] MEDS: Piperacillin/Tazobact 3.375 gm 100 ML IVPB SCH ×2 (05:58→14:13)
[2019-01-28] MEDS ORDERED: Unna Boot TOP ONE (07:38)
[2019-01-28] MEDS: Insulin Lispro (humaLOG) MEDIUM Coverage SC SCH ×3 (08:20→17:42)
[2019-01-28 08:36] LABS: BASO # 0.01 K/mm3 (0.0-2.0); BASO % 0.1 % (0.0-3.0); EOS # 0.4 (0.0-0.7); EOS % 5.4 % (1.5-5.0); HEMOGLOBIN 11.8 g/dL (12.0-16.0); LYMPH # 0.7 (1.2-3.4); LYMPH % 9.1 % (22.0-35.0); MEAN CELL VOLUME 81.2 fl (80.0-105.0); MEAN CORPUSCULAR HEMOGLOBIN 24.4 pg (25.0-35.0); MEAN CORPUSCULAR HGB CONC 30.1 g/dl (31.0-37.0); MEAN PLATELET VOLUME 10.4 fl (7.0-11.0); MONO # 0.8 (0.1-0.6); MONO % 10.3 % (1.0-6.0); RBC 4.83 10^6/uL (3.5-6.1); RED CELL DISTRIBUTION WIDTH 17.3 % (11.5-14.5); WHITE BLOOD COUNT 7.5 10^3/uL (4.5-11.0)
[2019-01-28 08:58] LABS: ALB/GLOB RATIO 0.9 (1.1-1.8); ALBUMIN 3.6 g/dL (3.0-4.8); ALT/SGPT 15 U/L (7-56); AST/SGOT 40 U/L (14-36); BLOOD UREA NITROGEN 13 mg/dL (7-21); CALCIUM 9.1 mg/dL (8.4-10.5); GFR NON-AFRICAN AMERICAN > 60
[2019-01-28] MEDS: Enoxaparin 40 mg Syringe SC SCH (09:27)
[2019-01-28] MEDS: Nystatin 100,000 Units/gm Topical Pow(15 gm) TOP SCH ×2 (09:45→17:42)
[2019-01-28] MEDS: Vancomycin 1gm in NS 250ml 1 GM/250 ML BAG IVPB SCH ×2 (10:00→21:43)
--- NOTE | 2019-01-28 12:31 | CP.PCM.PN ---
<Sheri Segura - Last Filed: 01/28/19 12:56> Subjective - Date & Time of Evaluation Date of Evaluation: 01/28/19 Time of Evaluation: 09:15 - Subjective Subjective: Sheri Segura PGY1 Medicine Progress Note Patient seen and examined at bedside this morning. No acute events reported overnight. Admits to right leg pain that is unchanged from yesterday and offers no new complaints today. Planning for bariatric walker upon discharge. Objective - Vital Signs/Intake and Output Vital Signs (last 24 hours): Temp Pulse Resp BP Pulse Ox 98.9 F 100 H 20 120/7 L 95 01/28/19 06:00 01/28/19 06:00 01/28/19 06:00 01/28/19 09:26 01/28/19 06:00 Intake and Output: 01/28/19 01/28/19 06:59 18:59 Intake Total 480 Balance 480 - Medications Medications: Current Medications Acetaminophen (Tylenol 325mg Tab) 650 mg PO Q6H PRN PRN Reason: Pain, Mild (1-3) Last Admin: 01/25/19 05:08 Dose: 650 mg Dextrose (Dextrose 50% Inj) 0 ml IV STAT PRN; Protocol PRN Reason: Hypoglycemia Protocol Enoxaparin Sodium (Lovenox) 40 mg SC DAILY [facility]; Protocol Last Admin: 01/28/19 09:27 Dose: 40 mg Ergocalciferol (Drisdol 50,000 Intl Units Cap) 1 cap PO Q7D [facility] Last Admin: 01/26/19 17:46 Dose: 1 cap Furosemide (Lasix) 40 mg IVP DAILY [facility] Last Admin: 01/28/19 09:26 Dose: 40 mg Dextrose (Dextrose 5% In Water 1000 Ml) 1,000 mls @ 0 mls/hr IV .Q0M PRN; Protocol PRN Reason: Hypoglycemia Protocol Vancomycin HCl (Vancomycin 1gm) 1 gm in 250 mls @ 167 mls/hr IVPB Q12H [facility]; Protocol Last Admin: 01/28/19 10:00 Dose: 167 mls/hr Piperacillin Sod/Tazobactam Sod (Zosyn 3.375 In Ns 100ml) 100 mls @ 25 mls/hr IVPB Q8 [facility]; Protocol Last Admin: 01/28/19 05:58 Dose: 25 mls/hr Ibuprofen (Motrin Tab) 600 mg PO Q6H PRN PRN Reason: Pain, moderate (4-7) Last Admin: 01/26/19 02:20 Dose: 600 mg Insulin Human Lispro (Humalog Med) 0 units SC ACHS [facility]; Protocol Last Admin: 01/28/19 12:03 Dose: 1 unit Levalbuterol HCl (Xopenex) 1.25 mg IH Q2H PRN PRN Reason: Shortness of Breath Last Admin: 01/25/19 05:10 Dose: 1.25 mg Nicotine (Nicoderm Cq) 1 patch TD DAILY PRN PRN Reason: URGE TO SMOKE Last Admin: 01/28/19 09:26 Dose: 1 patch Nystatin (Nystop Topical Powder) 0 gm TOP BID [facility] Last Admin: 01/28/19 09:45 Dose: Not Given Ondansetron HCl (Zofran Inj) 4 mg IVP Q6H PRN PRN Reason: Nausea/Vomiting Oxycodone HCl (Oxycodone Immediate Release Tab) 30 mg PO Q8H PRN PRN Reason: Pain, severe (8-10) Last Admin: 01/28/19 12:03 Dose: 30 mg Pantoprazole Sodium (Protonix Ec Tab) 40 mg PO 0600 [facility] Last Admin: 01/28/19 05:56 Dose: 40 mg - Labs Labs: 01/28/19 08:25 01/28/19 08:25 PT 14.0 SECONDS (9.4-12.5) H 01/25/19 02:23 INR 1.26 01/25/19 02:23 APTT 39.3 Seconds (26.9-38.3) H 01/25/19 02:23 - Constitutional Appears: Non-toxic, No Acute Distress - Head Exam Head Exam: ATRAUMATIC, NORMAL INSPECTION - Eye Exam Eye Exam: EOMI Pupil Exam: PERRL - ENT Exam ENT Exam: Mucous Membranes Moist - Respiratory Exam Respiratory Exam: absent: Accessory Muscle Use, Respiratory Distress Additional comments: mild expiratory wheezing appreciated B/L - Cardiovascular Exam Cardiovascular Exam: REGULAR RHYTHM, +S1, +S2 - GI/Abdominal Exam GI & Abdominal Exam: Soft, Normal Bowel Sounds. absent: Guarding, Rigid, Tenderness Additional comments: globular abdomen - Extremities Exam Extremities Exam: absent: Calf Tenderness Additional comments: B/L leg eczematous dry skin appreciated, swollen with right medial foot lesion noted [id number], extensive venous stasis dermatitis. - Neurological Exam Neurological Exam: Alert, CN II-XII Intact, Oriented x3 - Skin Skin Exam: Dry, Normal Color, Warm Assessment and Plan - Assessment and Plan (Free Text) Assessment: 53 yo F with PMH of COPD, WINTER, BMI of 64, and DM2 (last A1c 6.9) presents with worsening b/l LE edema, erythema presents with inability to ambulate because of LE swelling. She is admitted for management of b/l LE cellulitis/wounds. Awaiting bariatric walker. Plan: B/l LE venous stasis vs cellutis -continue vancomycin and zosyn, day 4 -Afebrile, no leukocytosis but wounds are non-healing -Wound cx from foot and leg growing Staph aureus and enterobacter -blood cx negative for 3 days -wound cx positive for staph aureus, enterobacter -Podiatry consult placed for foot care/management of 2 foot ulcers - recs appreciated -Procal 0.09 -B/l LE doppler US negative for DVT -BNP 78, Echo shows EF 59% and RVSP of 40, concerning for component of pulm. hypertension -ID consult placed, all recs appreciated -Continue with Furosemide 40 mg IVP -PT recs appreciated, awaiting bariatric walker Hx of WINTER -Likely has component of obesity hypoventilation syndrome -Pulmonology consult Hx of Tobacco abuse -Nicotine patch PRN -Advise patient regularly on importance of abstinence Hx of DM2 - poor control -HgbA1c 9.0 -continue ISS Hx of COPD -Xopenex PRN for SOB -No active issues Low Vitamin D -<12 in serum -50,000 Vit D supplementation once a week Morbid Obesity - BMI 64 -Core Shaper referral placed, all recs appreciated -Will need counseling regarding importance of weight loss PPX/Diet -Lovenox/protonix -HHD, diabetic diet Patient seen and case discussed with Dr. Jose Malave. <Tatum Malave R - Last Filed: 01/28/19 13:26> Objective - Vital Signs/Intake and Output Vital Signs (last 24 hours): Temp Pulse Resp BP Pulse Ox 98.9 F 100 H 20 120/7 L 95 01/28/19 06:00 01/28/19 06:00 01/28/19 06:00 01/28/19 09:26 01/28/19 06:00 Intake and Output: 01/28/19 01/28/19 06:59 18:59 Intake Total 480 Balance 480 - Medications Medications: Current Medications Acetaminophen (Tylenol 325mg Tab) 650 mg PO Q6H PRN PRN Reason: Pain, Mild (1-3) Last Admin: 01/25/19 05:08 Dose: 650 mg Dextrose (Dextrose 50% Inj) 0 ml IV STAT PRN; Protocol PRN Reason: Hypoglycemia Protocol Enoxaparin Sodium (Lovenox) 40 mg SC DAILY [facility]; Protocol Last Admin: 01/28/19 09:27 Dose: 40 mg Ergocalciferol (Drisdol 50,000 Intl Units Cap) 1 cap PO Q7D [facility] Last Admin: 01/26/19 17:46 Dose: 1 cap Furosemide (Lasix) 40 mg IVP DAILY [facility] Last Admin: 01/28/19 09:26 Dose: 40 mg Dextrose (Dextrose 5% In Water 1000 Ml) 1,000 mls @ 0 mls/hr IV .Q0M PRN; Protocol PRN Reason: Hypoglycemia Protocol Vancomycin HCl (Vancomycin 1gm) 1 gm in 250 mls @ 167 mls/hr IVPB Q12H [facility]; Protocol Last Admin: 01/28/19 10:00 Dose: 167 mls/hr Piperacillin Sod/Tazobactam Sod (Zosyn 3.375 In Ns 100ml) 100 mls @ 25 mls/hr IVPB Q8 [facility]; Protocol Last Admin: 01/28/19 05:58 Dose: 25 mls/hr Ibuprofen (Motrin Tab) 600 mg PO Q6H PRN PRN Reason: Pain, moderate (4-7) Last Admin: 01/26/19 02:20 Dose: 600 mg Insulin Human Lispro (Humalog Med) 0 units SC ACHS [facility]; Protocol Last Admin: 01/28/19 12:03 Dose: 1 unit Levalbuterol HCl (Xopenex) 1.25 mg IH Q2H PRN PRN Reason: Shortness of Breath Last Admin: 01/25/19 05:10 Dose: 1.25 mg Nicotine (Nicoderm Cq) 1 patch TD DAILY PRN PRN Reason: URGE TO SMOKE Last Admin: 01/28/19 09:26 Dose: 1 patch Nystatin (Nystop Topical Powder) 0 gm TOP BID [facility] Last Admin: 01/28/19 09:45 Dose: Not Given Ondansetron HCl (Zofran Inj) 4 mg IVP Q6H PRN PRN Reason: Nausea/Vomiting Oxycodone HCl (Oxycodone Immediate Release Tab) 30 mg PO Q8H PRN PRN Reason: Pain, severe (8-10) Last Admin: 01/28/19 12:03 Dose: 30 mg Pantoprazole Sodium (Protonix Ec Tab) 40 mg PO 0600 [facility] Last Admin: 01/28/19 05:56 Dose: 40 mg - Labs Labs: 01/28/19 08:25 01/28/19 08:25 PT 14.0 SECONDS (9.4-12.5) H 01/25/19 02:23 INR 1.26 01/25/19 02:23 APTT 39.3 Seconds (26.9-38.3) H 01/25/19 02:23 Attending/Attestation - Attestation I have personally seen and examined this patient.: Yes I have fully participated in the care of the patient.: Yes I have reviewed all pertinent clinical information, including history, physical exam and plan: Yes Notes (Text): Patient seen and examined by me with resident at 9:35AM on 01/28/19. Case including HPI, physical exam, and assessment and plan discussed with resident. Agree with above with following additions/corrections. Patient is 53-year-old female past medical history significant for COPD, shortness to sleep apnea noncompliant with CPAP, morbid obesity, type 2 diabetes, and noncompliance with medications that presented to the emergency room with bilateral lower extremity swelling, redness, and pain. Patient states that she feels a little better today. Asking for home pain medications. [employer] reviewed. Patient states her lower extremity pain has improved a little but still is unable to ambulate. She denies abdominal pain. No nausea or vomiting. No chest pain or palpitations. No shortness of breath. No headaches or dizziness. No fevers or chills. No dysuria. Patient states she is unable to afford a bariatric walker. Physical exam: General: Awake and alert, sitting up in chair in no acute distress. Poor hygiene HEENT: Normocephalic, atraumatic, Extraocular muscles intact, pupils equal and reactive, no scleral icterus. Oropharynx is pink and moist. Neck is supple. Cardiovascular: Normal rhythm. Normal S1 and S2. No murmurs, rubs, or gallops appreciated. Pulmonary: Normal respiratory effort. Decreased breath sounds. No rhonchi, rales, or wheezing appreciated. Gastrointestinal: Soft. Nontender. Nondistended. Positive bowel sounds all 4 quadrants. No guarding. Morbidly obsese abdomen. Musculoskeletal: Moves all extremities. Bilateral lower extremity edema,no erythema, and mild tenderness. Dressing on wounds clean, dry, and intact. Central nervous system: AAO x 3 Dermatologic: Skin warm and dry. Positive fungal rash under abdominal folds improving. Diffuse xerosis cutis. Bilateral lower extremity venous stasis dermatitis. Assessment and plan: Patient is 53-year-old female past medical history sign ificant for COPD, shortness to sleep apnea noncompliant with CPAP, morbid obesity, type 2 diabetes, and noncompliance with medications that presented to the emergency room with bilateral lower extremity swelling, redness, and pain. 1. Bilateral lower extremity cellulitis, edema. Right lower extremity wounds, right posterior thigh wound. ID following, recommendations appreciated. All wound cultures positive for Enterobacter Cloacae and Staphylococcus aureus. Blood cultures with no growth. Continue Zosyn and Vancomycin. Continue Lasix. Continue with wound care. Podiatry following, recommendations appreciated. Bilateral lower extremity venous dopplers negative, very limited study. Procalcitonin 0.09. Continue physical therapy, patient unsafe discharge as needs assistive device to ambulate and unable to afford bariatric walker. 2. Poorly controlled DM2. Continue insulin sliding scale. HgbA1C 9. Continue to monitor accuchecks. Diabetic education. 3. COPD. WINTER. Pulmonary following, recommendations appreciated. Continue CPAP at bedtime. Continue Xopenex as needed. Counseled on tobacco cessation. Not in acute COPD exacerbation. 2d Echo per rigging loft mechanic showed technically limited study, poor acoustic windows noted, chamber sizes appear within normal limits, no obvious valvular abnormality seen, EF approximately 59.2%. 4. Tobacco abuse. Counseled at length on cessation. Continue nicoderm. 5. Noncompliance. Patient has not been taking medications or following with a doctor for over a year. Patient counseled at length on importance of taking medications and following with a primary care doctor. 6. Vitamin D deficiency. Continue 50,000 IU weekly. 7. Morbid Obesity. BMI 64. Core Shaper consulted. Diet and exercise discussed at length with patient. 8. GI/DVT prophylaxis. Lovenox/Protonix. 9. Patient is a full code. Case was discussed in detail with the patient regarding current diagnosis and treatment plan. All questions answered.
--- NOTE | 2019-01-28 12:47 | CP.PCM.PN ---
<Cheryle Izaguirre - Last Filed: 01/28/19 12:38> Subjective - Date & Time of Evaluation Date of Evaluation: 01/28/19 Time of Evaluation: 12:38 - Subjective Subjective: Podiatry Progress Note: Dr. Anderson 53F seen and evaluated this AM for right lower extremity wounds. Patient states she has not been elevating her legs and they remain in the dependent position for the majority of the day. Pain in lower extremity unchanged. No new lower extremity complaints. Denies n/v/f/d/c/sob/valle/cp. Objective - Vital Signs/Intake and Output Vital Signs (last 24 hours): Temp Pulse Resp BP Pulse Ox 98.9 F 100 H 20 120/7 L 95 01/28/19 06:00 01/28/19 06:00 01/28/19 06:00 01/28/19 09:26 01/28/19 06:00 Intake and Output: 01/28/19 01/28/19 06:59 18:59 Intake Total 480 Balance 480 - Medications Medications: Current Medications Acetaminophen (Tylenol 325mg Tab) 650 mg PO Q6H PRN PRN Reason: Pain, Mild (1-3) Last Admin: 01/25/19 05:08 Dose: 650 mg Dextrose (Dextrose 50% Inj) 0 ml IV STAT PRN; Protocol PRN Reason: Hypoglycemia Protocol Enoxaparin Sodium (Lovenox) 40 mg SC DAILY [facility]; Protocol Last Admin: 01/28/19 09:27 Dose: 40 mg Ergocalciferol (Drisdol 50,000 Intl Units Cap) 1 cap PO Q7D [facility]UL[facility] Last Admin: 01/26/19 17:46 Dose: 1 cap Furosemide (Lasix) 40 mg IVP DAILY [facility] Last Admin: 01/28/19 09:26 Dose: 40 mg Dextrose (Dextrose 5% In Water 1000 Ml) 1,000 mls @ 0 mls/hr IV .Q0M PRN; Protocol PRN Reason: Hypoglycemia Protocol Vancomycin HCl (Vancomycin 1gm) 1 gm in 250 mls @ 167 mls/hr IVPB Q12H [facility]; Protocol Last Admin: 01/28/19 10:00 Dose: 167 mls/hr Piperacillin Sod/Tazobactam Sod (Zosyn 3.375 In Ns 100ml) 100 mls @ 25 mls/hr IVPB Q8 [facility]; Protocol Last Admin: 01/28/19 05:58 Dose: 25 mls/hr Ibuprofen (Motrin Tab) 600 mg PO Q6H PRN PRN Reason: Pain, moderate (4-7) Last Admin: 01/26/19 02:20 Dose: 600 mg Insulin Human Lispro (Humalog Med) 0 units SC ACHS [facility]; Protocol Last Admin: 01/28/19 12:03 Dose: 1 unit Levalbuterol HCl (Xopenex) 1.25 mg IH Q2H PRN PRN Reason: Shortness of Breath Last Admin: 01/25/19 05:10 Dose: 1.25 mg Nicotine (Nicoderm Cq) 1 patch TD DAILY PRN PRN Reason: URGE TO SMOKE Last Admin: 01/28/19 09:26 Dose: 1 patch Nystatin (Nystop Topical Powder) 0 gm TOP BID [facility] Last Admin: 01/28/19 09:45 Dose: Not Given Ondansetron HCl (Zofran Inj) 4 mg IVP Q6H PRN PRN Reason: Nausea/Vomiting Oxycodone HCl (Oxycodone Immediate Release Tab) 30 mg PO Q8H PRN PRN Reason: Pain, severe (8-10) Last Admin: 01/28/19 12:03 Dose: 30 mg Pantoprazole Sodium (Protonix Ec Tab) 40 mg PO 0600 [facility] Last Admin: 01/28/19 05:56 Dose: 40 mg - Labs Labs: 01/28/19 08:25 01/28/19 08:25 PT 14.0 SECONDS (9.4-12.5) H 01/25/19 02:23 INR 1.26 01/25/19 02:23 APTT 39.3 Seconds (26.9-38.3) H 01/25/19 02:23 - Constitutional Appears: Non-toxic, No Acute Distress - Extremities Exam Additional comments: Vascular: DP/PT faintly palpable, CFT < 3 seconds, TG warm to warm, + 2 pitting edema appreciated to b/l lower extremities Ortho: MMT 4/5, pain upon palpation of R posterior calf Neuro: Gross sensation intact, protective sensation diminished Derm: B/L lower extremity weeping edema with superficial ulcerations. Lichenification appreciated RLE= Superficial ulceration measuring approx 3 x 1.5 x .1 cm with mixed fibrotic/granular base noted to anterior lateral aspect of leg. + serous ad inage, mild malodor, no purulence appreciated, no erythema, no cellulitis appreciated Superficial ulceration #2 noted to medial ankle measuring approximately 1 x 1 x 0.1 cm with fibrogranular base and serous drainage present. LLE= no open lesions at this time, no erythema, no cellulitis - Neurological Exam Neurological Exam: Alert, Awake, Oriented x3 - Psychiatric Exam Psychiatric exam: Normal Affect, Normal Mood Assessment and Plan - Assessment and Plan (Free Text) Assessment: 53F with R lower extremity pain and weeping edema Plan: Patient seen and evaluated with attending Dr. Monica GILLETTE wound culture reveals growth of Enterobacter, Staph aureus LE US taken; no DVT Local wound care; maxshayna, DSD -Nursing communication ordered for dressing changes Q shift due to increased drainage Educated on importance of elevating b/l lower extremities - patient noncompliant despite education Podiatry will continue to follow <Jhonathan Anderson - Last Filed: 01/31/19 08:10> Objective - Vital Signs/Intake and Output Vital Signs (last 24 hours): Temp Pulse Resp BP Pulse Ox 98.3 F 99 H 19 115/75 100 01/30/19 14:00 01/30/19 14:00 01/30/19 14:00 01/30/19 14:00 01/30/19 06:00 Intake and Output: 01/31/19 01/31/19 06:59 18:59 Intake Total 1020 Balance 1020 - Medications Medications: Current Medications Acetaminophen (Tylenol 325mg Tab) 650 mg PO Q6H PRN PRN Reason: Pain, Mild (1-3) Last Admin: 01/25/19 05:08 Dose: 650 mg Amoxicillin/Clavulanate Potassium (Augmentin 875 Mg-125 Mg Tab) 1 tab PO Q12 [facility]; Protocol Last Admin: 01/30/19 21:12 Dose: 1 tab Dextrose (Dextrose 50% Inj) 0 ml IV STAT PRN; Protocol PRN Reason: Hypoglycemia Protocol Enoxaparin Sodium (Lovenox) 40 mg SC DAILY [facility]; Protocol Last Admin: 01/30/19 09:39 Dose: 40 mg Ergocalciferol (Drisdol 50,000 Intl Units Cap) 1 cap PO Q7D [facility] Last Admin: 01/26/19 17:46 Dose: 1 cap Furosemide (Lasix) 40 mg IVP DAILY [facility] Last Admin: 01/30/19 09:39 Dose: 40 mg Dextrose (Dextrose 5% In Water 1000 Ml) 1,000 mls @ 0 mls/hr IV .Q0M PRN; Protocol PRN Reason: Hypoglycemia Protocol Ibuprofen (Motrin Tab) 600 mg PO Q6H PRN PRN Reason: Pain, moderate (4-7) Last Admin: 01/29/19 20:42 Dose: 600 mg Insulin Human Lispro (Humalog Med) 0 units SC ACHS [facility]; Protocol Last Admin: 01/30/19 21:11 Dose: Not Given Levalbuterol HCl (Xopenex) 1.25 mg IH Q2H PRN PRN Reason: Shortness of Breath Last Admin: 01/25/19 05:10 Dose: 1.25 mg Levofloxacin (Levaquin) 750 mg PO DAILY [facility]; Protocol Last Admin: 01/30/19 10:46 Dose: 750 mg Nicotine (Nicoderm Cq) 1 patch TD DAILY PRN PRN Reason: URGE TO SMOKE Last Admin: 01/30/19 09:39 Dose: 1 patch Nystatin (Nystop Topical Powder) 0 gm TOP BID [facility] Last Admin: 01/30/19 17:09 Dose: 1 applic Ondansetron HCl (Zofran Inj) 4 mg IVP Q6H PRN PRN Reason: Nausea/Vomiting Oxycodone HCl (Oxycodone Immediate Release Tab) 30 mg PO Q8H PRN PRN Reason: Pain, severe (8-10) Last Admin: 01/31/19 01:11 Dose: 30 mg Pantoprazole Sodium (Protonix Ec Tab) 40 mg PO 0600 [facility] Last Admin: 01/31/19 06:04 Dose: 40 mg - Labs Labs: 01/30/19 09:20 01/30/19 09:20 PT 14.0 SECONDS (9.4-12.5) H 01/25/19 02:23 INR 1.26 01/25/19 02:23 APTT 39.3 Seconds (26.9-38.3) H 01/25/19 02:23 Attending/Attestation - Attestation I have personally seen and examined this patient.: Yes I have fully participated in the care of the patient.: Yes I have reviewed all pertinent clinical information, including history, physical exam and plan: Yes
--- NOTE | 2019-01-28 18:03 | CP.PCM.PN ---
Subjective - Date & Time of Evaluation Date of Evaluation: 01/28/19 Time of Evaluation: 14:00 - Subjective Subjective: Infectious Disease Follow Up: January 28, 2019 53yo female with PMHx of morbid obesity, BMI>60, COPD, WINTER, OHS, non compliant with CPAP, active smoker 1/2pk per day, presented with worsening LE edema. Pt states that she has not seen a physician in over year, has not taken any medications, and has been non compliant with CPAP; actively smoking. Pt reports she has gained 40-50lbs over the last year, and does not use her CPAP machine because of "malfunction with tubing". Right lower leg/foot wound growing multiple organisms. MSSA and Enterobacter in wound cultures. No new issues. Strangely enough, the patient seemed surprised at her large weight gains although her and other family member were saying that she eats way too much at home. Objective - Vital Signs/Intake and Output Vital Signs (last 24 hours): Temp Pulse Resp BP Pulse Ox 98.0 F 105 H 20 123/74 98 01/28/19 14:00 01/28/19 14:00 01/28/19 14:00 01/28/19 14:00 01/28/19 14:00 Intake and Output: 01/28/19 01/28/19 06:59 18:59 Intake Total 480 Balance 480 - Medications Medications: Current Medications Acetaminophen (Tylenol 325mg Tab) 650 mg PO Q6H PRN PRN Reason: Pain, Mild (1-3) Last Admin: 01/25/19 05:08 Dose: 650 mg Dextrose (Dextrose 50% Inj) 0 ml IV STAT PRN; Protocol PRN Reason: Hypoglycemia Protocol Enoxaparin Sodium (Lovenox) 40 mg SC DAILY [facility]; Protocol Last Admin: 01/28/19 09:27 Dose: 40 mg Ergocalciferol (Drisdol 50,000 Intl Units Cap) 1 cap PO Q7D [facility] Last Admin: 01/26/19 17:46 Dose: 1 cap Furosemide (Lasix) 40 mg IVP DAILY [facility] Last Admin: 01/28/19 09:26 Dose: 40 mg Dextrose (Dextrose 5% In Water 1000 Ml) 1,000 mls @ 0 mls/hr IV .Q0M PRN; Protocol PRN Reason: Hypoglycemia Protocol Vancomycin HCl (Vancomycin 1gm) 1 gm in 250 mls @ 167 mls/hr IVPB Q12H [facility]; Protocol Last Admin: 01/28/19 10:00 Dose: 167 mls/hr Piperacillin Sod/Tazobactam Sod (Zosyn 3.375 In Ns 100ml) 100 mls @ 25 mls/hr IVPB Q8 [facility]; Protocol Last Admin: 01/28/19 14:13 Dose: 25 mls/hr Ibuprofen (Motrin Tab) 600 mg PO Q6H PRN PRN Reason: Pain, moderate (4-7) Last Admin: 01/26/19 02:20 Dose: 600 mg Insulin Human Lispro (Humalog Med) 0 units SC ACHS [facility]; Protocol Last Admin: 01/28/19 12:03 Dose: 1 unit Levalbuterol HCl (Xopenex) 1.25 mg IH Q2H PRN PRN Reason: Shortness of Breath Last Admin: 01/25/19 05:10 Dose: 1.25 mg Nicotine (Nicoderm Cq) 1 patch TD DAILY PRN PRN Reason: URGE TO SMOKE Last Admin: 01/28/19 09:26 Dose: 1 patch Nystatin (Nystop Topical Powder) 0 gm TOP BID [facility] Last Admin: 01/28/19 09:45 Dose: Not Given Ondansetron HCl (Zofran Inj) 4 mg IVP Q6H PRN PRN Reason: Nausea/Vomiting Oxycodone HCl (Oxycodone Immediate Release Tab) 30 mg PO Q8H PRN PRN Reason: Pain, severe (8-10) Last Admin: 01/28/19 12:03 Dose: 30 mg Pantoprazole Sodium (Protonix Ec Tab) 40 mg PO 0600 [facility] Last Admin: 01/28/19 05:56 Dose: 40 mg - Labs Labs: 01/28/19 08:25 01/28/19 08:25 PT 14.0 SECONDS (9.4-12.5) H 01/25/19 02:23 INR 1.26 01/25/19 02:23 APTT 39.3 Seconds (26.9-38.3) H 01/25/19 02:23 - Constitutional Appears: Non-toxic, No Acute Distress, Chronically Ill - Head Exam Head Exam: ATRAUMATIC, NORMOCEPHALIC - Eye Exam Eye Exam: EOMI, PERRL Pupil Exam: NORMAL ACCOMODATION, PERRL - ENT Exam ENT Exam: Mucous Membranes Moist, Normal External Ear Exam, TM's Normal Bilaterally - Neck Exam Neck Exam: Full ROM, Normal Inspection - Respiratory Exam Respiratory Exam: Clear to Ausculation Bilateral, NORMAL BREATHING PATTERN. absent: Rales, Rhonchi, Wheezes - Cardiovascular Exam Cardiovascular Exam: REGULAR RHYTHM, RRR, +S1, +S2 - GI/Abdominal Exam GI & Abdominal Exam: Soft, Normal Bowel Sounds. absent: Distended, Tenderness - Extremities Exam Extremities Exam: Full ROM, Joint Swelling, Pedal Edema Additional comments: Vascular: DP/PT faintly palpable, CFT < 3 seconds, TG warm to warm, + 2 pitting edema appreciated to b/l lower extremities Ortho: MMT 4/5, pain upon palpation of R posterior calf Neuro: Gross sensation intact, protective sensation diminished Derm: B/L lower extremity weeping edema with superficial ulcerations. RLE= Superficial ulceration measuring approx 3 x 1.5 x .1 cm with mixed fibrotic/granular base noted to anterior lateral aspect of leg. + serous drainage, mild malodor, no purulence appreciated, no erythema, no cellulitis appreciated. Strong odor from right lower leg. LLE= superficial skin tears appreciated to anterior aspect of leg There is a good amount of serosaguinous drainage from the right lower extremity ulceration. - Neurological Exam Neurological Exam: Alert, Awake, CN II-XII Intact, Oriented x3 - Psychiatric Exam Psychiatric exam: Normal Affect, Normal Mood - Skin Additional comments: As above Assessment and Plan - Assessment and Plan (Free Text) Assessment: 53 yo female with multiple medical issues that include DM, HTN, morbid obesity, and WINTER presenting with significant weight gain of 51 pounds in the past month and significant swelling of the bilateral lower extremities. Started on Zosyn and IV Vancomycin. Monitor renal function. Franco cultures pending. Wound cultures pending but growing gram positive cocci in clusters and gram negative rods. Identification was MSSA and Enterobacter. Continue with Zosyn alone at this point while in hospital. Patient likely needs diuresis as well. Noted the patient has an abdominal mass on CT scan. Can consider use of oral Augmentin 875 mg BID and Levaquin 750 mg daily for 7-10 days more. Supportive care Thank you for allowing me to participate in the care of the patient, we will follow with you.
[2019-01-29] MEDS: oxyCODONE 15 mg Immediate Release Tab PO PRN ×3 (05:42→23:48)
[2019-01-29 08:10] LABS: BASO # 0.01 K/mm3 (0.0-2.0); BASO % 0.2 % (0.0-3.0); EOS # 0.4 (0.0-0.7); EOS % 5.9 % (1.5-5.0); HEMOGLOBIN 12.5 g/dL (12.0-16.0); LYMPH # 0.6 (1.2-3.4); LYMPH % 8.7 % (22.0-35.0); MEAN CELL VOLUME 81.8 fl (80.0-105.0); MEAN CORPUSCULAR HEMOGLOBIN 24.2 pg (25.0-35.0); MEAN CORPUSCULAR HGB CONC 29.6 g/dl (31.0-37.0); MEAN PLATELET VOLUME 10.3 fl (7.0-11.0); MONO # 0.4 (0.1-0.6); MONO % 5.9 % (1.0-6.0); RBC 5.16 10^6/uL (3.5-6.1); RED CELL DISTRIBUTION WIDTH 17.4 % (11.5-14.5); WHITE BLOOD COUNT 6.6 10^3/uL (4.5-11.0)
[2019-01-29] MEDS: Piperacillin/Tazobact 3.375 gm 100 ML IVPB SCH ×3 (08:30→18:15)
[2019-01-29 08:31] LABS: ALB/GLOB RATIO 0.8 (1.1-1.8); ALBUMIN 3.7 g/dL (3.0-4.8); ALT/SGPT 30 U/L (7-56); AST/SGOT 45 U/L (14-36); BLOOD UREA NITROGEN 16 mg/dL (7-21); CALCIUM 9.4 mg/dL (8.4-10.5); GFR NON-AFRICAN AMERICAN > 60
[2019-01-29] MEDS: Pantoprazole 40 mg EC Tab PO SCH (09:54)
[2019-01-29] MEDS: Insulin Lispro (humaLOG) MEDIUM Coverage SC SCH ×3 (09:55→18:11)
[2019-01-29] MEDS: Enoxaparin 40 mg Syringe SC SCH (09:55)
[2019-01-29] MEDS: Nystatin 100,000 Units/gm Topical Pow(15 gm) TOP SCH ×2 (09:56→18:12)
[2019-01-29] MEDS: Vancomycin 1gm in NS 250ml 1 GM/250 ML BAG IVPB SCH (09:59)
--- NOTE | 2019-01-29 13:08 | CP.PCM.PN ---
<Sheri Segura - Last Filed: 01/29/19 13:02> Subjective - Date & Time of Evaluation Date of Evaluation: 01/29/19 Time of Evaluation: 09:40 - Subjective Subjective: Sheri Segura PGY1 Medicine Progress Note Patient seen and examined at bedside this morning. No acute events reported overnight. Patient noted to be sitting in chair with no new complaints today. Will discuss with case worker tomorrow possibility of bariatric walker. Objective - Vital Signs/Intake and Output Vital Signs (last 24 hours): Temp Pulse Resp BP Pulse Ox 98.0 F 87 18 110/70 95 01/29/19 06:00 01/29/19 06:00 01/29/19 06:00 01/29/19 09:54 01/29/19 06:00 - Medications Medications: Current Medications Acetaminophen (Tylenol 325mg Tab) 650 mg PO Q6H PRN PRN Reason: Pain, Mild (1-3) Last Admin: 01/25/19 05:08 Dose: 650 mg Dextrose (Dextrose 50% Inj) 0 ml IV STAT PRN; Protocol PRN Reason: Hypoglycemia Protocol Enoxaparin Sodium (Lovenox) 40 mg SC DAILY [facility]ULIA; Protocol Last Admin: 01/29/19 09:55 Dose: 40 mg Ergocalciferol (Drisdol 50,000 Intl Units Cap) 1 cap PO Q7D [facility]IA Last Admin: 01/26/19 17:46 Dose: 1 cap Furosemide (Lasix) 40 mg IVP DAILY [facility]UL[facility] Last Admin: 01/29/19 09:54 Dose: 40 mg Dextrose (Dextrose 5% In Water 1000 Ml) 1,000 mls @ 0 mls/hr IV .Q0M PRN; Protocol PRN Reason: Hypoglycemia Protocol Piperacillin Sod/Tazobactam Sod (Zosyn 3.375 In Ns 100ml) 100 mls @ 25 mls/hr IVPB Q8 [facility]UL[facility]; Protocol Last Admin: 01/29/19 08:30 Dose: 25 mls/hr Ibuprofen (Motrin Tab) 600 mg PO Q6H PRN PRN Reason: Pain, moderate (4-7) Last Admin: 01/28/19 17:45 Dose: 600 mg Insulin Human Lispro (Humalog Med) 0 units SC ACHS [facility]; Protocol Last Admin: 01/29/19 12:39 Dose: 3 unit Levalbuterol HCl (Xopenex) 1.25 mg IH Q2H PRN PRN Reason: Shortness of Breath Last Admin: 01/25/19 05:10 Dose: 1.25 mg Nicotine (Nicoderm Cq) 1 patch TD DAILY PRN PRN Reason: URGE TO SMOKE Last Admin: 01/28/19 09:26 Dose: 1 patch Nystatin (Nystop Topical Powder) 0 gm TOP BID [facility] Last Admin: 01/29/19 09:56 Dose: 1 applic Ondansetron HCl (Zofran Inj) 4 mg IVP Q6H PRN PRN Reason: Nausea/Vomiting Oxycodone HCl (Oxycodone Immediate Release Tab) 30 mg PO Q8H PRN PRN Reason: Pain, severe (8-10) Last Admin: 01/29/19 05:42 Dose: 30 mg Pantoprazole Sodium (Protonix Ec Tab) 40 mg PO 0600 [facility] Last Admin: 01/29/19 09:54 Dose: 40 mg - Labs Labs: 01/29/19 07:00 01/29/19 07:00 PT 14.0 SECONDS (9.4-12.5) H 01/25/19 02:23 INR 1.26 01/25/19 02:23 APTT 39.3 Seconds (26.9-38.3) H 01/25/19 02:23 - Constitutional Appears: Non-toxic, No Acute Distress - Head Exam Head Exam: ATRAUMATIC, NORMAL INSPECTION - Eye Exam Eye Exam: EOMI Pupil Exam: PERRL - ENT Exam ENT Exam: Mucous Membranes Moist - Respiratory Exam Respiratory Exam: absent: Accessory Muscle Use, Respiratory Distress Additional comments: mild expiratory wheezing appreciated B/L - Cardiovascular Exam Cardiovascular Exam: REGULAR RHYTHM, +S1, +S2 - GI/Abdominal Exam GI & Abdominal Exam: Soft, Normal Bowel Sounds. absent: Guarding, Rigid, Tenderness Additional comments: globular abdomen - Extremities Exam Extremities Exam: absent: Calf Tenderness Additional comments: B/L leg eczematous dry skin appreciated, swollen with right medial foot lesion noted [id number], extensive venous stasis dermatitis. - Neurological Exam Neurological Exam: Alert, CN II-XII Intact, Oriented x3 - Skin Skin Exam: Dry, Normal Color, Warm Assessment and Plan - Assessment and Plan (Free Text) Assessment: 53 yo F with PMH of COPD, WINTER, BMI of 64, and DM2 (last A1c 6.9) presents with worsening b/l LE edema, erythema presents with inability to ambulate because of LE swelling. She is admitted for management of b/l LE cellulitis/wounds. Awaiting bariatric walker; will discuss with case worker tomorrow. Plan: B/L LE venous stasis vs cellutis skin changes -continue vancomycin and zosyn, day 5 -Afebrile, no leukocytosis -Wound cx from foot and leg positive for staph aureus and enterobacter -blood cx negative for 4 days -Podiatry consult placed for foot care/management of 2 foot ulcers - recs appreciated -Procal 0.09 -B/l LE doppler US negative for DVT -BNP 78, Echo shows EF 59% and RVSP of 40, concerning for component of pulm. hypertension -ID consult placed, all recs appreciated -Continue with Furosemide 40 mg IVP -PT recs appreciated, awaiting bariatric walker as patient is unsafe discharge due inability to afford bariatric walker Hx of COPD -Xopenex PRN for SOB -No active issues -echo 01/26 shows EF of 59%, technically limited study Hx of WINTER -Likely has component of obesity hypoventilation syndrome -Pulmonology consult Hx of Tobacco abuse -Nicotine patch PRN -Advise patient regularly on importance of abstinence Hx of DM2 - poor control -HgbA1c 9 -continue ISS Low Vitamin D -<12 in serum -50,000 Vit D supplementation once a week Morbid Obesity - BMI 64 -Hand Knitter referral placed, all recs appreciated -Will need counseling regarding importance of weight loss PPX/Diet -Lovenox/protonix -HHD, diabetic diet Patient seen and case discussed with Dr. Jose Malave. <Tatum Malave R - Last Filed: 01/29/19 13:20> Objective - Vital Signs/Intake and Output Vital Signs (last 24 hours): Temp Pulse Resp BP Pulse Ox 98.0 F 87 18 110/70 95 01/29/19 06:00 01/29/19 06:00 01/29/19 06:00 01/29/19 09:54 01/29/19 06:00 - Medications Medications: Current Medications Acetaminophen (Tylenol 325mg Tab) 650 mg PO Q6H PRN PRN Reason: Pain, Mild (1-3) Last Admin: 01/25/19 05:08 Dose: 650 mg Dextrose (Dextrose 50% Inj) 0 ml IV STAT PRN; Protocol PRN Reason: Hypoglycemia Protocol Enoxaparin Sodium (Lovenox) 40 mg SC DAILY [facility]; Protocol Last Admin: 01/29/19 09:55 Dose: 40 mg Ergocalciferol (Drisdol 50,000 Intl Units Cap) 1 cap PO Q7D [facility] Last Admin: 01/26/19 17:46 Dose: 1 cap Furosemide (Lasix) 40 mg IVP DAILY [facility] Last Admin: 01/29/19 09:54 Dose: 40 mg Dextrose (Dextrose 5% In Water 1000 Ml) 1,000 mls @ 0 mls/hr IV .Q0M PRN; Protocol PRN Reason: Hypoglycemia Protocol Piperacillin Sod/Tazobactam Sod (Zosyn 3.375 In Ns 100ml) 100 mls @ 25 mls/hr IVPB Q8 [facility]; Protocol Last Admin: 01/29/19 08:30 Dose: 25 mls/hr Ibuprofen (Motrin Tab) 600 mg PO Q6H PRN PRN Reason: Pain, moderate (4-7) Last Admin: 01/28/19 17:45 Dose: 600 mg Insulin Human Lispro (Humalog Med) 0 units SC ACHS [facility]; Protocol Last Admin: 01/29/19 12:39 Dose: 3 unit Levalbuterol HCl (Xopenex) 1.25 mg IH Q2H PRN PRN Reason: Shortness of Breath Last Admin: 01/25/19 05:10 Dose: 1.25 mg Nicotine (Nicoderm Cq) 1 patch TD DAILY PRN PRN Reason: URGE TO SMOKE Last Admin: 01/28/19 09:26 Dose: 1 patch Nystatin (Nystop Topical Powder) 0 gm TOP BID [facility] Last Admin: 01/29/19 09:56 Dose: 1 applic Ondansetron HCl (Zofran Inj) 4 mg IVP Q6H PRN PRN Reason: Nausea/Vomiting Oxycodone HCl (Oxycodone Immediate Release Tab) 30 mg PO Q8H PRN PRN Reason: Pain, severe (8-10) Last Admin: 01/29/19 05:42 Dose: 30 mg Pantoprazole Sodium (Protonix Ec Tab) 40 mg PO 0600 [facility] Last Admin: 01/29/19 09:54 Dose: 40 mg - Labs Labs: 01/29/19 07:00 01/29/19 07:00 PT 14.0 SECONDS (9.4-12.5) H 01/25/19 02:23 INR 1.26 01/25/19 02:23 APTT 39.3 Seconds (26.9-38.3) H 01/25/19 02:23 Attending/Attestation - Attestation I have personally seen and examined this patient.: Yes I have fully participated in the care of the patient.: Yes I have reviewed all pertinent clinical information, including history, physical exam and plan: Yes Notes (Text): Patient seen and examined by me with resident at 9:05AM on 01/29/19. Case including HPI, physical exam, and assessment and plan discussed with resident. Agree with above with following additions/corrections. Patient is 53-year-old female past medical history significant for COPD, obstructive sleep apnea noncompliant with CPAP, morbid obesity, type 2 diabetes, and noncompliance with medications that presented to the emergency room with bilateral lower extremity swelling, redness, and pain. Patient states that she is feeling better. Patient states she still is having difficulty ambulating secondary to pain and heaviness in her legs. Patient is working with physical therapy. No abdominal pain. No nausea or vomiting. No chest pain or palpitations. No shortness of breath. No headaches or dizziness. No fevers or chills. No dysuria. Patient is unable to afford a bariatric walker. Physical exam: General: Awake and alert, sitting up in chair in no acute distress. Poor hygiene HEENT: Normocephalic, atraumatic, Extraocular muscles intact, pupils equal and reactive, no scleral icterus. Oropharynx is pink and moist. Neck is supple. Cardiovascular: Normal rhythm. Normal S1 and S2. No murmurs, rubs, or gallops appreciated. Pulmonary: Normal respiratory effort. Decreased breath sounds. No rhonchi, rales, or wheezing appreciated. Gastrointestinal: Soft. Nontender. Nondistended. Positive bowel sounds all 4 quadrants. No guarding. Morbidly obsese abdomen. Musculoskeletal: Moves all extremities. Bilateral lower extremity edema,no erythema, and mild tenderness. Dressing on wounds clean, dry, and intact. Central nervous system: AAO x 3 Dermatologic: Skin warm and dry. Positive improved fungal rash under abdominal folds. Diffuse xerosis cutis. Bilateral lower extremity venous stasis dermatitis. Assessment and plan: Patient is 53-year-old female past medical history significant for COPD, obstructive sleep apnea noncompliant with CPAP, morbid obesity, type 2 diabetes, and noncompliance with medications that presented to the emergency room with bilateral lower extremity swelling, redness, and pain. 1. Bilateral lower extremity cellulitis, edema. Right lower extremity wounds, right posterior thigh wound. Improving. ID following, recommendations appreciated. All wound cultures positive for Enterobacter Cloacae and Staphylococcus aureus. Blood cultures with no growth. Continue Zosyn and Vancomycin. Continue Lasix. Continue with wound care. Podiatry following, recommendations appreciated. Bilateral lower extremity venous dopplers negative, very limited study. Procalcitonin 0.09. Continue physical therapy, patient unsafe discharge as needs assistive device to ambulate and unable to afford bariatric walker. 2. Poorly controlled DM2. Continue insulin sliding scale. HgbA1C 9. Continue to monitor accuchecks. Diabetic education. 3. COPD. WINTER. . Continue CPAP at bedtime. Continue Xopenex as needed. Pulmonary following, recommendations appreciatedCounseled on tobacco cessation. Not in acute COPD exacerbation. 2d Echo per administrator pesticide showed technically limited study, poor acoustic windows noted, chamber sizes appear within normal limits, no obvious valvular abnormality seen, EF approximately 59.2%. 4. Tobacco abuse. Counseled at length on cessation. Continue nicoderm. 5. Noncompliance. Patient has not been taking medications or following with a doctor for over a year. Patient counseled daily on importance of taking medications and following with a primary care doctor. 6. Vitamin D deficiency. Continue 50,000 IU weekly. 7. Morbid Obesity. BMI 64. Hand Knitter consulted. Diet and exercise discussed at length with patient. 8. GI/DVT prophylaxis. Lovenox/Protonix. 9. Patient is a full code. Case was discussed in detail with the patient regarding current diagnosis and treatment plan. All questions answered.
--- NOTE | 2019-01-29 14:53 | CP.PCM.PN ---
<Cheryle Izaguirre - Last Filed: 01/29/19 14:50> Subjective - Date & Time of Evaluation Date of Evaluation: 01/29/19 Time of Evaluation: 14:50 - Subjective Subjective: Podiatry - Drs. Martinez/Monica 53F seen and evaluated for right lower extremity wounds + edema. Patient OOB in chair with legs in dependent position. Patient states she has not been elevating her legs and they remain in the dependent position for the majority of the day despite education. Pain in lower extremity unchanged. Wounds continue to weep and saturate dressings despite Qshift dressing changes. Denies n/v/f/d/c/sob/valle/cp. Objective - Vital Signs/Intake and Output Vital Signs (last 24 hours): Temp Pulse Resp BP Pulse Ox 98.3 F 95 H 18 128/77 95 01/29/19 14:00 01/29/19 14:00 01/29/19 14:00 01/29/19 14:00 01/29/19 14:00 - Medications Medications: Current Medications Acetaminophen (Tylenol 325mg Tab) 650 mg PO Q6H PRN PRN Reason: Pain, Mild (1-3) Last Admin: 01/25/19 05:08 Dose: 650 mg Dextrose (Dextrose 50% Inj) 0 ml IV STAT PRN; Protocol PRN Reason: Hypoglycemia Protocol Enoxaparin Sodium (Lovenox) 40 mg SC DAILY [facility]; Protocol Last Admin: 01/29/19 09:55 Dose: 40 mg Ergocalciferol (Drisdol 50,000 Intl Units Cap) 1 cap PO Q7D [facility]ULIA Last Admin: 01/26/19 17:46 Dose: 1 cap Furosemide (Lasix) 40 mg IVP DAILY [facility] Last Admin: 01/29/19 09:54 Dose: 40 mg Dextrose (Dextrose 5% In Water 1000 Ml) 1,000 mls @ 0 mls/hr IV .Q0M PRN; Protocol PRN Reason: Hypoglycemia Protocol Piperacillin Sod/Tazobactam Sod (Zosyn 3.375 In Ns 100ml) 100 mls @ 25 mls/hr IVPB Q8 [facility]ULIA; Protocol Last Admin: 01/29/19 14:12 Dose: 25 mls/hr Ibuprofen (Motrin Tab) 600 mg PO Q6H PRN PRN Reason: Pain, moderate (4-7) Last Admin: 01/28/19 17:45 Dose: 600 mg Insulin Human Lispro (Humalog Med) 0 units SC ACHS [facility]; Protocol Last Admin: 01/29/19 12:39 Dose: 3 unit Levalbuterol HCl (Xopenex) 1.25 mg IH Q2H PRN PRN Reason: Shortness of Breath Last Admin: 01/25/19 05:10 Dose: 1.25 mg Nicotine (Nicoderm Cq) 1 patch TD DAILY PRN PRN Reason: URGE TO SMOKE Last Admin: 01/28/19 09:26 Dose: 1 patch Nystatin (Nystop Topical Powder) 0 gm TOP BID [facility] Last Admin: 01/29/19 09:56 Dose: 1 applic Ondansetron HCl (Zofran Inj) 4 mg IVP Q6H PRN PRN Reason: Nausea/Vomiting Oxycodone HCl (Oxycodone Immediate Release Tab) 30 mg PO Q8H PRN PRN Reason: Pain, severe (8-10) Last Admin: 01/29/19 14:12 Dose: 30 mg Pantoprazole Sodium (Protonix Ec Tab) 40 mg PO 0600 [facility] Last Admin: 01/29/19 09:54 Dose: 40 mg - Labs Labs: 01/29/19 07:00 01/29/19 07:00 PT 14.0 SECONDS (9.4-12.5) H 01/25/19 02:23 INR 1.26 01/25/19 02:23 APTT 39.3 Seconds (26.9-38.3) H 01/25/19 02:23 - Constitutional Appears: Non-toxic, No Acute Distress - Extremities Exam Additional comments: Vascular: DP/PT faintly palpable, CFT < 3 seconds, TG warm to warm, + 2 pitting edema appreciated to b/l lower extremities Ortho: MMT 4/5, pain upon palpation of R posterior calf Neuro: Gross sensation intact, protective sensation diminished Derm: B/L lower extremity weeping edema with superficial ulcerations. Lichenification appreciated RLE= Superficial ulceration measuring approx 3 x 1.5 x .1 cm with mixed fibrotic/granular base noted to anterior lateral aspect of leg. + serous drainage, mild malodor, no purulence appreciated, no erythema, no cellulitis appreciated Superficial ulceration #2 noted to medial ankle measuring approximately 1 x 1 x 0.1 cm with fibrogranular base and severe serous drainage present. LLE= no open lesions at this time, no erythema, no cellulitis - Neurological Exam Neurological Exam: Alert, Awake, Oriented x3 - Psychiatric Exam Psychiatric exam: Normal Affect, Normal Mood Assessment and Plan - Assessment and Plan (Free Text) Assessment: 53F with R lower extremity pain and weeping edema Plan: Patient seen and evaluated Discussed with attending, Dr. Martinez RLE wound culture reveals growth of Enterobacter, Staph aureus LE US taken; no DVT Local wound care; maxorb, DSD -Nursing communication ordered for dressing changes Q shift due to increased drainage Educated on importance of elevating b/l lower extremities - patient continues to be noncompliant despite maximal education Podiatry will continue to follow <Frances Martinez - Last Filed: 01/29/19 19:30> Objective - Vital Signs/Intake and Output Vital Signs (last 24 hours): Temp Pulse Resp BP Pulse Ox 98.3 F 95 H 18 128/77 95 01/29/19 14:00 01/29/19 14:00 01/29/19 14:00 01/29/19 14:00 01/29/19 14:00 - Medications Medications: Current Medications Acetaminophen (Tylenol 325mg Tab) 650 mg PO Q6H PRN PRN Reason: Pain, Mild (1-3) Last Admin: 01/25/19 05:08 Dose: 650 mg Dextrose (Dextrose 50% Inj) 0 ml IV STAT PRN; Protocol PRN Reason: Hypoglycemia Protocol Enoxaparin Sodium (Lovenox) 40 mg SC DAILY [facility]; Protocol Last Admin: 01/29/19 09:55 Dose: 40 mg Ergocalciferol (Drisdol 50,000 Intl Units Cap) 1 cap PO Q7D [facility] Last Admin: 01/26/19 17:46 Dose: 1 cap Furosemide (Lasix) 40 mg IVP DAILY [facility] Last Admin: 01/29/19 09:54 Dose: 40 mg Dextrose (Dextrose 5% In Water 1000 Ml) 1,000 mls @ 0 mls/hr IV .Q0M PRN; Protocol PRN Reason: Hypoglycemia Protocol Piperacillin Sod/Tazobactam Sod (Zosyn 3.375 In Ns 100ml) 100 mls @ 25 mls/hr IVPB Q8 [facility]; Protocol Last Admin: 01/29/19 18:15 Dose: 25 mls/hr Ibuprofen (Motrin Tab) 600 mg PO Q6H PRN PRN Reason: Pain, moderate (4-7) Last Admin: 01/28/19 17:45 Dose: 600 mg Insulin Human Lispro (Humalog Med) 0 units SC ACHS [facility]; Protocol Last Admin: 01/29/19 18:11 Dose: 1 unit Levalbuterol HCl (Xopenex) 1.25 mg IH Q2H PRN PRN Reason: Shortness of Breath Last Admin: 01/25/19 05:10 Dose: 1.25 mg Nicotine (Nicoderm Cq) 1 patch TD DAILY PRN PRN Reason: URGE TO SMOKE Last Admin: 01/28/19 09:26 Dose: 1 patch Nystatin (Nystop Topical Powder) 0 gm TOP BID [facility] Last Admin: 01/29/19 18:12 Dose: 1 applic Ondansetron HCl (Zofran Inj) 4 mg IVP Q6H PRN PRN Reason: Nausea/Vomiting Oxycodone HCl (Oxycodone Immediate Release Tab) 30 mg PO Q8H PRN PRN Reason: Pain, severe (8-10) Last Admin: 01/29/19 14:12 Dose: 30 mg Pantoprazole Sodium (Protonix Ec Tab) 40 mg PO 0600 [facility] Last Admin: 01/29/19 09:54 Dose: 40 mg - Labs Labs: 01/29/19 07:00 01/29/19 07:00 PT 14.0 SECONDS (9.4-12.5) H 01/25/19 02:23 INR 1.26 01/25/19 02:23 APTT 39.3 Seconds (26.9-38.3) H 01/25/19 02:23 Attending/Attestation - Attestation I have personally seen and examined this patient.: Yes I have fully participated in the care of the patient.: Yes I have reviewed all pertinent clinical information, including history, physical exam and plan: Yes
--- NOTE | 2019-01-29 17:28 | CP.PCM.PN ---
Subjective - Date & Time of Evaluation Date of Evaluation: 01/29/19 Time of Evaluation: 14:45 - Subjective Subjective: Infectious Disease Follow Up: January 29, 2019 53yo female with PMHx of morbid obesity, BMI>60, COPD, WINTER, OHS, non compliant with CPAP, active smoker 1/2pk per day, presented with worsening LE edema. Pt states that she has not seen a physician in over year, has not taken any medications, and has been non compliant with CPAP; actively smoking. Pt reports she has gained 40-50lbs over the last year, and does not use her CPAP machine because of "malfunction with tubing". Right lower leg/foot wound growing multiple organisms. MSSA and Enterobacter in wound cultures. No new issues. Strangely enough, the patient seemed surprised at her large weight gains although her and other family member were saying that she eats way too much at home. Inability to walk more than a few steps. Objective - Vital Signs/Intake and Output Vital Signs (last 24 hours): Temp Pulse Resp BP Pulse Ox 98.3 F 95 H 18 128/77 95 01/29/19 14:00 01/29/19 14:00 01/29/19 14:00 01/29/19 14:00 01/29/19 14:00 - Medications Medications: Current Medications Acetaminophen (Tylenol 325mg Tab) 650 mg PO Q6H PRN PRN Reason: Pain, Mild (1-3) Last Admin: 01/25/19 05:08 Dose: 650 mg Dextrose (Dextrose 50% Inj) 0 ml IV STAT PRN; Protocol PRN Reason: Hypoglycemia Protocol Enoxaparin Sodium (Lovenox) 40 mg SC DAILY [facility]; Protocol Last Admin: 01/29/19 09:55 Dose: 40 mg Ergocalciferol (Drisdol 50,000 Intl Units Cap) 1 cap PO Q7D [facility] Last Admin: 01/26/19 17:46 Dose: 1 cap Furosemide (Lasix) 40 mg IVP DAILY [facility] Last Admin: 01/29/19 09:54 Dose: 40 mg Dextrose (Dextrose 5% In Water 1000 Ml) 1,000 mls @ 0 mls/hr IV .Q0M PRN; Protocol PRN Reason: Hypoglycemia Protocol Piperacillin Sod/Tazobactam Sod (Zosyn 3.375 In Ns 100ml) 100 mls @ 25 mls/hr IVPB Q8 [facility]; Protocol Last Admin: 01/29/19 14:12 Dose: 25 mls/hr Ibuprofen (Motrin Tab) 600 mg PO Q6H PRN PRN Reason: Pain, moderate (4-7) Last Admin: 01/28/19 17:45 Dose: 600 mg Insulin Human Lispro (Humalog Med) 0 units SC ACHS [facility]; Protocol Last Admin: 01/29/19 12:39 Dose: 3 unit Levalbuterol HCl (Xopenex) 1.25 mg IH Q2H PRN PRN Reason: Shortness of Breath Last Admin: 01/25/19 05:10 Dose: 1.25 mg Nicotine (Nicoderm Cq) 1 patch TD DAILY PRN PRN Reason: URGE TO SMOKE Last Admin: 01/28/19 09:26 Dose: 1 patch Nystatin (Nystop Topical Powder) 0 gm TOP BID [facility] Last Admin: 01/29/19 09:56 Dose: 1 applic Ondansetron HCl (Zofran Inj) 4 mg IVP Q6H PRN PRN Reason: Nausea/Vomiting Oxycodone HCl (Oxycodone Immediate Release Tab) 30 mg PO Q8H PRN PRN Reason: Pain, severe (8-10) Last Admin: 01/29/19 14:12 Dose: 30 mg Pantoprazole Sodium (Protonix Ec Tab) 40 mg PO 0600 [facility] Last Admin: 01/29/19 09:54 Dose: 40 mg - Labs Labs: 01/29/19 07:00 01/29/19 07:00 PT 14.0 SECONDS (9.4-12.5) H 01/25/19 02:23 INR 1.26 01/25/19 02:23 APTT 39.3 Seconds (26.9-38.3) H 01/25/19 02:23 - Constitutional Appears: Non-toxic, No Acute Distress, Chronically Ill - Head Exam Head Exam: ATRAUMATIC, NORMOCEPHALIC - Eye Exam Eye Exam: EOMI, PERRL Pupil Exam: NORMAL ACCOMODATION, PERRL - ENT Exam ENT Exam: Mucous Membranes Moist, Normal External Ear Exam, TM's Normal Bilaterally - Neck Exam Neck Exam: Full ROM, Normal Inspection - Respiratory Exam Respiratory Exam: Clear to Ausculation Bilateral, NORMAL BREATHING PATTERN. absent: Rales, Rhonchi, Wheezes - Cardiovascular Exam Cardiovascular Exam: REGULAR RHYTHM, RRR, +S1, +S2 - GI/Abdominal Exam GI & Abdominal Exam: Soft, Normal Bowel Sounds. absent: Distended, Tenderness - Extremities Exam Extremities Exam: Full ROM, Joint Swelling, Pedal Edema Additional comments: Vascular: DP/PT faintly palpable, CFT < 3 seconds, TG warm to warm, + 2 pitting edema appreciated to b/l lower extremities Ortho: MMT 4/5, pain upon palpation of R posterior calf Neuro: Gross sensation intact, protective sensation diminished Derm: B/L lower extremity weeping edema with superficial ulcerations. RLE= Superficial ulceration measuring approx 3 x 1.5 x .1 cm with mixed fibrotic/granular base noted to anterior lateral aspect of leg. + serous drainage, mild malodor, no purulence appreciated, no erythema, no cellulitis appreciated. Strong odor from right lower leg. LLE= superficial skin tears appreciated to anterior aspect of leg There is a good amount of serosaguinous drainage from the right lower extremity ulceration. - Neurological Exam Neurological Exam: Alert, Awake, CN II-XII Intact, Oriented x3 - Psychiatric Exam Psychiatric exam: Normal Affect, Normal Mood - Skin Additional comments: As above. Assessment and Plan - Assessment and Plan (Free Text) Assessment: 53 yo female with multiple medical issues that include DM, HTN, morbid obesity, and WINTER presenting with significant weight gain of 51 pounds in the past month and significant swelling of the bilateral lower extremities. Started on Zosyn and IV Vancomycin. Monitor renal function. Franco cultures pending. Wound cultures pending but growing gram positive cocci in clusters and gram negative rods. Identification was MSSA and Enterobacter. Continue with Zosyn alone at this point while in hospital. Patient likely needs diuresis as well. Noted the patient has an abdominal mass on CT scan. Can consider use of oral Augmentin 875 mg BID and Levaquin 750 mg daily for 10 days more when patient is ready for discharge. Supportive care Thank you for allowing me to participate in the care of the patient, we will follow with you.
[2019-01-30] MEDS: Insulin Lispro (humaLOG) MEDIUM Coverage SC SCH ×5 (00:39→21:11)
[2019-01-30] MEDS: Piperacillin/Tazobact 3.375 gm 100 ML IVPB SCH ×2 (01:13→09:38)
[2019-01-30] MEDS: Pantoprazole 40 mg EC Tab PO SCH (06:50)
[2019-01-30] MEDS: oxyCODONE 15 mg Immediate Release Tab PO PRN ×2 (07:41→17:12)
[2019-01-30 09:28] LABS: EOS # 0.5 (0.0-0.7); HEMOGLOBIN 11.9 g/dL (12.0-16.0); LYMPH % 12.5 % (22.0-35.0); MEAN CELL VOLUME 80.9 fl (80.0-105.0); MEAN CORPUSCULAR HEMOGLOBIN 24.4 pg (25.0-35.0); MEAN CORPUSCULAR HGB CONC 30.1 g/dl (31.0-37.0); MONO # 0.4 (0.1-0.6); MONO % 5.6 % (1.0-6.0); RBC 4.88 10^6/uL (3.5-6.1); RED CELL DISTRIBUTION WIDTH 17.3 % (11.5-14.5); WHITE BLOOD COUNT 7.8 10^3/uL (4.5-11.0)
[2019-01-30] MEDS: Enoxaparin 40 mg Syringe SC SCH (09:39)
[2019-01-30 09:46] LABS: ALB/GLOB RATIO 0.8 (1.1-1.8); ALBUMIN 3.6 g/dL (3.0-4.8); ALT/SGPT 39 U/L (7-56); AST/SGOT 51 U/L (14-36); BLOOD UREA NITROGEN 17 mg/dL (7-21); CALCIUM 9.3 mg/dL (8.4-10.5); GFR NON-AFRICAN AMERICAN > 60
[2019-01-30] MEDS: Nystatin 100,000 Units/gm Topical Pow(15 gm) TOP SCH ×2 (10:05→17:09)
[2019-01-30] MEDS: levoFLOXacin 750 MG TAB PO SCH (10:46)
--- NOTE | 2019-01-30 11:16 | CP.PCM.PN ---
<Terry Sidhu - Last Filed: 01/30/19 16:08> Subjective - Date & Time of Evaluation Date of Evaluation: 01/30/19 Time of Evaluation: 11:14 - Subjective Subjective: Podiatry progress note - Drs. Martinez/Monica 53F seen and evaluated for right lower extremity wounds + edema. Patient OOB in chair with legs in dependent position. Patient states she has not been elevating her legs and they remain in the dependent position for the majority of the day despite education. Pain in lower extremity unchanged. Wounds continue to weep and saturate dressings despite Qshift dressing changes. Denies n/v/f/d/c/sob/valle/cp. Objective - Vital Signs/Intake and Output Vital Signs (last 24 hours): Temp Pulse Resp BP Pulse Ox 98 F 96 H 18 147/95 H 100 01/30/19 06:00 01/30/19 06:00 01/30/19 06:00 01/30/19 09:39 01/30/19 06:00 - Medications Medications: Current Medications Acetaminophen (Tylenol 325mg Tab) 650 mg PO Q6H PRN PRN Reason: Pain, Mild (1-3) Last Admin: 01/25/19 05:08 Dose: 650 mg Amoxicillin/Clavulanate Potassium (Augmentin 875 Mg-125 Mg Tab) 1 tab PO Q12 [facility]; Protocol Dextrose (Dextrose 50% Inj) 0 ml IV STAT PRN; Protocol PRN Reason: Hypoglycemia Protocol Enoxaparin Sodium (Lovenox) 40 mg SC DAILY [facility]; Protocol Last Admin: 01/30/19 09:39 Dose: 40 mg Ergocalciferol (Drisdol 50,000 Intl Units Cap) 1 cap PO Q7D [facility] Last Admin: 01/26/19 17:46 Dose: 1 cap Furosemide (Lasix) 40 mg IVP DAILY [facility] Last Admin: 01/30/19 09:39 Dose: 40 mg Dextrose (Dextrose 5% In Water 1000 Ml) 1,000 mls @ 0 mls/hr IV .Q0M PRN; Protocol PRN Reason: Hypoglycemia Protocol Ibuprofen (Motrin Tab) 600 mg PO Q6H PRN PRN Reason: Pain, moderate (4-7) Last Admin: 01/29/19 20:42 Dose: 600 mg Insulin Human Lispro (Humalog Med) 0 units SC ACHS [facility]; Protocol Last Admin: 01/30/19 00:39 Dose: Not Given Levalbuterol HCl (Xopenex) 1.25 mg IH Q2H PRN PRN Reason: Shortness of Breath Last Admin: 01/25/19 05:10 Dose: 1.25 mg Levofloxacin (Levaquin) 750 mg PO DAILY [facility]; Protocol Nicotine (Nicoderm Cq) 1 patch TD DAILY PRN PRN Reason: URGE TO SMOKE Last Admin: 01/30/19 09:39 Dose: 1 patch Nystatin (Nystop Topical Powder) 0 gm TOP BID [facility] Last Admin: 01/29/19 18:12 Dose: 1 applic Ondansetron HCl (Zofran Inj) 4 mg IVP Q6H PRN PRN Reason: Nausea/Vomiting Oxycodone HCl (Oxycodone Immediate Release Tab) 30 mg PO Q8H PRN PRN Reason: Pain, severe (8-10) Last Admin: 01/30/19 07:41 Dose: 30 mg Pantoprazole Sodium (Protonix Ec Tab) 40 mg PO 0600 [facility] Last Admin: 01/30/19 06:50 Dose: 40 mg - Labs Labs: 01/30/19 09:20 01/30/19 09:20 PT 14.0 SECONDS (9.4-12.5) H 01/25/19 02:23 INR 1.26 01/25/19 02:23 APTT 39.3 Seconds (26.9-38.3) H 01/25/19 02:23 - Constitutional Appears: Non-toxic - Head Exam Head Exam: ATRAUMATIC - Extremities Exam Additional comments: Vascular: DP/PT faintly palpable, CFT < 3 seconds, TG warm to warm, + 2 pitting edema appreciated to b/l lower extremities Ortho: MMT 4/5, pain upon palpation of R posterior calf Neuro: Gross sensation intact, protective sensation diminished Derm: B/L lower extremity weeping edema with superficial ulcerations. Lichenification appreciated RLE= Superficial ulceration measuring approx 3 x 1.5 x .1 cm with mixed fibrotic/granular base noted to anterior lateral aspect of leg. + serous drainage, mild malodor, no purulence appreciated, no erythema, no cellulitis appreciated Superficial ulceration #2 noted to medial ankle measuring approximately 1 x 1 x 0.1 cm with fibrogranular base and severe serous drainage present. LLE= no open lesions at this time, no erythema, no cellulitis - Neurological Exam Neurological Exam: Alert, Awake, Oriented x3 - Psychiatric Exam Psychiatric exam: Normal Affect Assessment and Plan - Assessment and Plan (Free Text) Assessment: 53F with R lower extremity pain and weeping edema Plan: Patient seen and evaluated Discussed with attending, Dr. Martinez RLE wound culture reveals growth of Enterobacter, Staph aureus LE US taken; no DVT Local wound care; maxorb, DSD -Nursing communication ordered for dressing changes Q shift due to increased drainage Educated on importance of elevating b/l lower extremities - patient continues to be noncompliant despite maximal education No plan for intervention Podiatry will continue to follow <Frances Martinez - Last Filed: 02/05/19 15:40> Objective - Vital Signs/Intake and Output Vital Signs (last 24 hours): Temp Pulse Resp BP Pulse Ox 97.9 F 99 H 20 148/79 96 02/03/19 06:00 02/03/19 06:00 02/03/19 06:00 02/03/19 06:00 02/03/19 06:00 - Labs Labs: 02/01/19 06:00 02/01/19 06:00 PT 14.0 SECONDS (9.4-12.5) H 01/25/19 02:23 INR 1.26 01/25/19 02:23 APTT 39.3 Seconds (26.9-38.3) H 01/25/19 02:23 Attending/Attestation - Attestation I have personally seen and examined this patient.: Yes I have fully participated in the care of the patient.: Yes I have reviewed all pertinent clinical information, including history, physical exam and plan: Yes
--- NOTE | 2019-01-30 11:29 | CP.PCM.PN ---
<Nikita Boss - Last Filed: 01/30/19 15:02> Subjective - Date & Time of Evaluation Date of Evaluation: 01/30/19 Time of Evaluation: 07:00 - Subjective Subjective: Nikita Boss PGY-1 Progress Note for Hospitalist Service Patient seen and evaluated at bedside this morning. No acute events reported overnight. Patient noted to be sitting in chair with no new complaints today. Discussed with nurse outreach case manager the possibility of bariatric walker. Objective - Vital Signs/Intake and Output Vital Signs (last 24 hours): Temp Pulse Resp BP Pulse Ox 98 F 96 H 18 147/95 H 100 01/30/19 06:00 01/30/19 06:00 01/30/19 06:00 01/30/19 09:39 01/30/19 06:00 - Medications Medications: Current Medications Acetaminophen (Tylenol 325mg Tab) 650 mg PO Q6H PRN PRN Reason: Pain, Mild (1-3) Last Admin: 01/25/19 05:08 Dose: 650 mg Amoxicillin/Clavulanate Potassium (Augmentin 875 Mg-125 Mg Tab) 1 tab PO Q12 [facility]; Protocol Dextrose (Dextrose 50% Inj) 0 ml IV STAT PRN; Protocol PRN Reason: Hypoglycemia Protocol Enoxaparin Sodium (Lovenox) 40 mg SC DAILY [facility]; Protocol Last Admin: 01/30/19 09:39 Dose: 40 mg Ergocalciferol (Drisdol 50,000 Intl Units Cap) 1 cap PO Q7D [facility] Last Admin: 01/26/19 17:46 Dose: 1 cap Furosemide (Lasix) 40 mg IVP DAILY [facility] Last Admin: 01/30/19 09:39 Dose: 40 mg Dextrose (Dextrose 5% In Water 1000 Ml) 1,000 mls @ 0 mls/hr IV .Q0M PRN; Protocol PRN Reason: Hypoglycemia Protocol Ibuprofen (Motrin Tab) 600 mg PO Q6H PRN PRN Reason: Pain, moderate (4-7) Last Admin: 01/29/19 20:42 Dose: 600 mg Insulin Human Lispro (Humalog Med) 0 units SC ACHS [facility]; Protocol Last Admin: 01/30/19 00:39 Dose: Not Given Levalbuterol HCl (Xopenex) 1.25 mg IH Q2H PRN PRN Reason: Shortness of Breath Last Admin: 01/25/19 05:10 Dose: 1.25 mg Levofloxacin (Levaquin) 750 mg PO DAILY [facility]; Protocol Nicotine (Nicoderm Cq) 1 patch TD DAILY PRN PRN Reason: URGE TO SMOKE Last Admin: 01/30/19 09:39 Dose: 1 patch Nystatin (Nystop Topical Powder) 0 gm TOP BID [facility] Last Admin: 01/29/19 18:12 Dose: 1 applic Ondansetron HCl (Zofran Inj) 4 mg IVP Q6H PRN PRN Reason: Nausea/Vomiting Oxycodone HCl (Oxycodone Immediate Release Tab) 30 mg PO Q8H PRN PRN Reason: Pain, severe (8-10) Last Admin: 01/30/19 07:41 Dose: 30 mg Pantoprazole Sodium (Protonix Ec Tab) 40 mg PO 0600 [facility] Last Admin: 01/30/19 06:50 Dose: 40 mg - Labs Labs: 01/30/19 09:20 01/30/19 09:20 PT 14.0 SECONDS (9.4-12.5) H 01/25/19 02:23 INR 1.26 01/25/19 02:23 APTT 39.3 Seconds (26.9-38.3) H 01/25/19 02:23 - Additional Findings Additional findings: - Constitutional Appears: Non-toxic, No Acute Distress - Head Exam Head Exam: ATRAUMATIC, NORMAL INSPECTION - Eye Exam Eye Exam: EOMI Pupil Exam: PERRL - ENT Exam ENT Exam: Mucous Membranes Moist - Respiratory Exam Respiratory Exam: absent: Accessory Muscle Use, Respiratory Distress Additional comments: mild expiratory wheezing appreciated B/L - Cardiovascular Exam Cardiovascular Exam: REGULAR RHYTHM, +S1, +S2 - GI/Abdominal Exam GI & Abdominal Exam: Soft, Normal Bowel Sounds. absent: Guarding, Rigid, Tenderness Additional comments: morbidly obese abdomen - Extremities Exam Extremities Exam: absent: Calf Tenderness Additional comments: B/L leg venous stasis dry skin appreciated, swollen with right medial foot lesion noted [id number], extensive venous stasis dermatitis. - Neurological Exam Neurological Exam: Alert, CN II-XII Intact, Oriented x3 - Skin Skin Exam: Dry, Normal Color, Warm Assessment and Plan - Assessment and Plan (Free Text) Assessment: 53 yo F with PMH of COPD, WINTER, BMI of 64, and DM2 (last A1c 6.9) presents with worsening b/l LE edema, erythema presents with inability to ambulate because of LE swelling. She is admitted for management of b/l LE cellulitis/wounds. Awaiting bariatric walker. Patient was able to ambulate with assistance from walker. Plan: B/L LE venous stasis -Vancomycin and Zosyn discontinued, begin Augmentin and Levaquin per ID recs -Afebrile, no leukocytosis -Wound cx from foot and leg positive for staph aureus and enterobacter -blood cx negative for 5 days -Podiatry consult placed for foot care/management of 2 foot ulcers - recs appreciated -Procal 0.09 -B/l LE doppler US negative for DVT -BNP 78, Echo shows EF 59% and RVSP of 40, concerning for component of pulm. hypertension -ID consult placed, all recs appreciated -Continue with Furosemide 40 mg IVP daily -PT recs appreciated, awaiting bariatric walker as patient is unsafe discharge due inability to currently afford bariatric walker Hx of COPD -Xopenex PRN for SOB -No active issues -echo 01/26 shows EF of 59%, technically limited study Hx of WINTER -Likely has component of obesity hypoventilation syndrome -Pulmonology consult Hx of Tobacco abuse -Nicotine patch PRN -Advise patient regularly on importance of abstinence Hx of DM2 - poor control -HgbA1c 9 -continue ISS Low Vitamin D -<12 in serum -50,000 Vit D supplementation once a week Morbid Obesity - BMI 64 -Scan Coordinator referral placed, all recs appreciated -Will need counseling regarding importance of weight loss PPX/Diet -Lovenox/protonix -HHD, diabetic diet Dispo: PT recommends HWS, but patient without current [place] insurance. Awaiting bariatric walker. Patient seen, case reviewed and plan approved by Dr. Jose Malave. Nikita Boss, PGY-1 <Tatum Malave R - Last Filed: 01/30/19 15:40> Objective - Vital Signs/Intake and Output Vital Signs (last 24 hours): Temp Pulse Resp BP Pulse Ox 98 F 96 H 18 147/95 H 100 01/30/19 06:00 01/30/19 06:00 01/30/19 06:00 01/30/19 09:39 01/30/19 06:00 Intake and Output: 03/18/19 03/18/19 06:59 18:59 Intake Total 520 Balance 520 - Medications Medications: Current Medications Acetaminophen (Tylenol 325mg Tab) 650 mg PO Q6H PRN PRN Reason: Pain, Mild (1-3) Last Admin: 01/25/19 05:08 Dose: 650 mg Amoxicillin/Clavulanate Potassium (Augmentin 875 Mg-125 Mg Tab) 1 tab PO Q12 [facility]; Protocol Last Admin: 01/30/19 11:43 Dose: 1 tab Dextrose (Dextrose 50% Inj) 0 ml IV STAT PRN; Protocol PRN Reason: Hypoglycemia Protocol Enoxaparin Sodium (Lovenox) 40 mg SC DAILY [facility]; Protocol Last Admin: 01/30/19 09:39 Dose: 40 mg Ergocalciferol (Drisdol 50,000 Intl Units Cap) 1 cap PO Q7D [facility] Last Admin: 01/26/19 17:46 Dose: 1 cap Furosemide (Lasix) 40 mg IVP DAILY [facility] Last Admin: 01/30/19 09:39 Dose: 40 mg Dextrose (Dextrose 5% In Water 1000 Ml) 1,000 mls @ 0 mls/hr IV .Q0M PRN; Protocol PRN Reason: Hypoglycemia Protocol Ibuprofen (Motrin Tab) 600 mg PO Q6H PRN PRN Reason: Pain, moderate (4-7) Last Admin: 01/29/19 20:42 Dose: 600 mg Insulin Human Lispro (Humalog Med) 0 units SC ACHS [facility]; Protocol Last Admin: 01/30/19 11:40 Dose: 1 unit Levalbuterol HCl (Xopenex) 1.25 mg IH Q2H PRN PRN Reason: Shortness of Breath Last Admin: 01/25/19 05:10 Dose: 1.25 mg Levofloxacin (Levaquin) 750 mg PO DAILY [facility]; Protocol Last Admin: 01/30/19 10:46 Dose: 750 mg Nicotine (Nicoderm Cq) 1 patch TD DAILY PRN PRN Reason: URGE TO SMOKE Last Admin: 01/30/19 09:39 Dose: 1 patch Nystatin (Nystop Topical Powder) 0 gm TOP BID [facility] Last Admin: 01/30/19 10:05 Dose: 1 applic Ondansetron HCl (Zofran Inj) 4 mg IVP Q6H PRN PRN Reason: Nausea/Vomiting Oxycodone HCl (Oxycodone Immediate Release Tab) 30 mg PO Q8H PRN PRN Reason: Pain, severe (8-10) Last Admin: 01/30/19 07:41 Dose: 30 mg Pantoprazole Sodium (Protonix Ec Tab) 40 mg PO 0600 [facility] Last Admin: 01/30/19 06:50 Dose: 40 mg - Labs Labs: 01/30/19 09:20 01/30/19 09:20 PT 14.0 SECONDS (9.4-12.5) H 01/25/19 02:23 INR 1.26 01/25/19 02:23 APTT 39.3 Seconds (26.9-38.3) H 01/25/19 02:23 Attending/Attestation - Attestation I have personally seen and examined this patient.: Yes I have fully participated in the care of the patient.: Yes I have reviewed all pertinent clinical information, including history, physical exam and plan: Yes Notes (Text): Patient seen and examined by me with resident at 9:45AM on 01/30/19. Case including HPI, physical exam, and assessment and plan discussed with resident. Agree with above with following additions/corrections. Patient is 53-year-old female past medical history significant for COPD, obstructive sleep apnea noncompliant with CPAP, morbid obesity, type 2 diabetes, and noncompliance with medications that presented to the emergency room with bilateral lower extremity swelling, redness, and pain. Patient states that she doing better. States she was able to ambulate farther today with the walker. She states she has to rest after walking a short distance. Patient states she had some pain in her lower extremities after ambulation but legs feel better. She denies abdominal pain. No nausea or vomiting. No chest pain or palpitations. No shortness of breath. No headaches or dizziness. No fevers or chills. No dysuria. Physical exam: General: Awake and alert, sitting up in chair in no acute distress. Poor hygiene HEENT: Normocephalic, atraumatic, Extraocular muscles intact, pupils equal and reactive, no scleral icterus. Oropharynx is pink and moist. Neck is supple. Cardiovascular: Normal rhythm. Normal S1 and S2. No murmurs, rubs, or gallops appreciated. Pulmonary: Normal respiratory effort. Decreased breath sounds. No rhonchi, rales, or wheezing appreciated. Gastrointestinal: Soft. Nontender. Nondistended. Positive bowel sounds all 4 quadrants. No guarding. Morbidly obsese abdomen. Musculoskeletal: Moves all extremities. Bilateral lower extremity edema, no erythema, and mild tenderness. Dressing on wounds clean, dry, and intact. Central nervous system: AAO x 3 Dermatologic: Skin warm and dry. Positive improvee fungal rash under abdominal folds. Diffuse xerosis cutis. Bilateral lower extremity venous stasis dermati tis. Assessment and plan: Patient is 53-year-old female past medical history significant for COPD, obstructive sleep apnea noncompliant with CPAP, morbid obesity, type 2 diabetes, and noncompliance with medications that presented to the emergency room with bilateral lower extremity swelling, redness, and pain. 1. Bilateral lower extremity cellulitis, edema. Right lower extremity wounds, right posterior thigh wound. Improving. ID following, recommendations appreciated. All wound cultures positive for Enterobacter Cloacae and Staphylococcus aureus. Blood cultures with no growth. Started on Levaquin and Augmentin per ID. Continue Lasix. Continue with wound care. Podiatry following, recommendations appreciated. Bilateral lower extremity venous dopplers negative, very limited study. Procalcitonin 0.09. Continue physical therapy, patient unsafe discharge as needs assistive device to ambulate and unable to afford bariatric walker. 2. Poorly controlled DM2. Continue insulin sliding scale. HgbA1C 9. Continue to monitor accuchecks. Diabetic education. 3. COPD. WINTER. Continue CPAP at bedtime. Continue Xopenex as needed. Pulmonary following, recommendations appreciated. Patient has been counseled at length on tobacco cessation. Not in acute COPD exacerbation. 2d Echo per loss control manager sh owed technically limited study, poor acoustic windows noted, chamber sizes appear within normal limits, no obvious valvular abnormality seen, EF approximately 59.2%. 4. Tobacco abuse. Patient again counseled at length on cessation. Continue nicoderm. 5. Noncompliance. Patient has not been taking medications or following with a doctor for over a year. Patient being counseled daily importance of taking medications and following with a primary care doctor. 6. Vitamin D deficiency. Continue 50,000 IU weekly. 7. Morbid Obesity. BMI 64. Scan Coordinator consulted. Diet and exercise discussed at length with patient. 8. GI/DVT prophylaxis. Lovenox/Protonix. 9. Patient is a full code. Case was discussed in detail with the patient regarding current diagnosis and treatment plan. All questions answered.
[2019-01-30] MEDS: Amoxicillin-Clav 875-125 mg Tab PO SCH ×2 (11:43→21:12)
--- NOTE | 2019-01-30 17:32 | CP.PCM.PN ---
Subjective - Date & Time of Evaluation Date of Evaluation: 01/30/19 Time of Evaluation: 15:30 - Subjective Subjective: Infectious Disease Follow Up: January 30, 2019 53yo female with PMHx of morbid obesity, BMI>60, COPD, WINTER, OHS, non compliant with CPAP, active smoker 1/2pk per day, presented with worsening LE edema. Pt states that she has not seen a physician in over year, has not taken any medications, and has been non compliant with CPAP; actively smoking. Pt reports she has gained 40-50lbs over the last year, and does not use her CPAP machine because of "malfunction with tubing". Right lower leg/foot wound growing multiple organisms. MSSA and Enterobacter in wound cultures. No new issues. Strangely enough, the patient seemed surprised at her large weight gains although her and other family member were saying that she eats way too much at home. Inability to walk more than a few steps but improving with PT. Objective - Vital Signs/Intake and Output Vital Signs (last 24 hours): Temp Pulse Resp BP Pulse Ox 98.3 F 99 H 19 115/75 100 01/30/19 14:00 01/30/19 14:00 01/30/19 14:00 01/30/19 14:00 01/30/19 06:00 Intake and Output: 01/30/19 01/30/19 06:59 18:59 Intake Total 520 Balance 520 - Medications Medications: Current Medications Acetaminophen (Tylenol 325mg Tab) 650 mg PO Q6H PRN PRN Reason: Pain, Mild (1-3) Last Admin: 01/25/19 05:08 Dose: 650 mg Amoxicillin/Clavulanate Potassium (Augmentin 875 Mg-125 Mg Tab) 1 tab PO Q12 [facility]; Protocol Last Admin: 01/30/19 11:43 Dose: 1 tab Dextrose (Dextrose 50% Inj) 0 ml IV STAT PRN; Protocol PRN Reason: Hypoglycemia Protocol Enoxaparin Sodium (Lovenox) 40 mg SC DAILY [facility]; Protocol Last Admin: 01/30/19 09:39 Dose: 40 mg Ergocalciferol (Drisdol 50,000 Intl Units Cap) 1 cap PO Q7D JULIA Last Admin: 01/26/19 17:46 Dose: 1 cap Furosemide (Lasix) 40 mg IVP DAILY JULIA Last Admin: 01/30/19 09:39 Dose: 40 mg Dextrose (Dextrose 5% In Water 1000 Ml) 1,000 mls @ 0 mls/hr IV .Q0M PRN; Protocol PRN Reason: Hypoglycemia Protocol Ibuprofen (Motrin Tab) 600 mg PO Q6H PRN PRN Reason: Pain, moderate (4-7) Last Admin: 01/29/19 20:42 Dose: 600 mg Insulin Human Lispro (Humalog Med) 0 units SC ACHS [facility]; Protocol Last Admin: 01/30/19 17:09 Dose: 3 unit Levalbuterol HCl (Xopenex) 1.25 mg IH Q2H PRN PRN Reason: Shortness of Breath Last Admin: 01/25/19 05:10 Dose: 1.25 mg Levofloxacin (Levaquin) 750 mg PO DAILY [facility]; Protocol Last Admin: 01/30/19 10:46 Dose: 750 mg Nicotine (Nicoderm Cq) 1 patch TD DAILY PRN PRN Reason: URGE TO SMOKE Last Admin: 01/30/19 09:39 Dose: 1 patch Nystatin (Nystop Topical Powder) 0 gm TOP BID [facility] Last Admin: 01/30/19 17:09 Dose: 1 applic Ondansetron HCl (Zofran Inj) 4 mg IVP Q6H PRN PRN Reason: Nausea/Vomiting Oxycodone HCl (Oxycodone Immediate Release Tab) 30 mg PO Q8H PRN PRN Reason: Pain, severe (8-10) Last Admin: 01/30/19 17:12 Dose: 30 mg Pantoprazole Sodium (Protonix Ec Tab) 40 mg PO 0600 [facility] Last Admin: 01/30/19 06:50 Dose: 40 mg - Labs Labs: 01/30/19 09:20 01/30/19 09:20 PT 14.0 SECONDS (9.4-12.5) H 01/25/19 02:23 INR 1.26 01/25/19 02:23 APTT 39.3 Seconds (26.9-38.3) H 01/25/19 02:23 - Constitutional Appears: Non-toxic, No Acute Distress, Chronically Ill - Head Exam Head Exam: ATRAUMATIC, NORMOCEPHALIC - Eye Exam Eye Exam: EOMI, PERRL Pupil Exam: NORMAL ACCOMODATION, PERRL - ENT Exam ENT Exam: Mucous Membranes Moist, Normal External Ear Exam, TM's Normal Bilat erally - Neck Exam Neck Exam: Full ROM, Normal Inspection - Respiratory Exam Respiratory Exam: Clear to Ausculation Bilateral, NORMAL BREATHING PATTERN. absent: Rales, Rhonchi, Wheezes - Cardiovascular Exam Cardiovascular Exam: REGULAR RHYTHM, RRR, +S1, +S2 - GI/Abdominal Exam GI & Abdominal Exam: Soft, Normal Bowel Sounds. absent: Distended, Tenderness - Extremities Exam Extremities Exam: Full ROM, Joint Swelling, Pedal Edema Additional comments: Vascular: DP/PT faintly palpable, CFT < 3 seconds, TG warm to warm, + 2 pitting edema appreciated to b/l lower extremities Ortho: MMT 4/5, pain upon palpation of R posterior calf Neuro: Gross sensation intact, protective sensation diminished Derm: B/L lower extremity weeping edema with superficial ulcerations. RLE= Superficial ulceration measuring approx 3 x 1.5 x .1 cm with mixed fibrotic/granular base noted to anterior lateral aspect of leg. + serous drainage, mild malodor, no purulence appreciated, no erythema, no cellulitis appreciated. Strong odor from right lower leg. LLE= superficial skin tears appreciated to anterior aspect of leg There is a good amount of serosaguinous drainage from the right lower extremity ulceration. - Neurological Exam Neurological Exam: Alert, Awake, CN II-XII Intact, Oriented x3 - Psychiatric Exam Psychiatric exam: Normal Affect, Normal Mood - Skin Additional comments: As above Assessment and Plan - Assessment and Plan (Free Text) Assessment: 53 yo female with multiple medical issues that include DM, HTN, morbid obesity, and WINTER presenting with significant weight gain of 51 pounds in the past month and significant swelling of the bilateral lower extremities. Started on Zosyn and IV Vancomycin. Monitor renal function. Franco cultures pending. Wound cultures pending but growing gram positive cocci in clusters and gram negative rods. Identification was MSSA and Enterobacter. Continue with Zosyn alone at this point while in hospital. Patient likely needs diuresis as well. Noted the patient has an abdominal mass on CT scan. Can consider use of oral Augmentin 875 mg BID and Levaquin 750 mg daily for 10 days more when patient is ready for discharge. Supportive care Thank you for allowing me to participate in the care of the patient, we will follow with you.
[2019-01-31] MEDS: oxyCODONE 15 mg Immediate Release Tab PO PRN ×3 (01:11→17:44)
[2019-01-31] MEDS: Pantoprazole 40 mg EC Tab PO SCH (06:04)
[2019-01-31 08:49] LABS: BASO # 0.01 K/mm3 (0.0-2.0); BASO % 0.1 % (0.0-3.0); EOS # 0.5 (0.0-0.7); EOS % 6.3 % (1.5-5.0); HEMOGLOBIN 11.7 g/dL (12.0-16.0); LYMPH # 1.3 (1.2-3.4); LYMPH % 17.1 % (22.0-35.0); MEAN CELL VOLUME 81.3 fl (80.0-105.0); MEAN CORPUSCULAR HEMOGLOBIN 24.1 pg (25.0-35.0); MEAN CORPUSCULAR HGB CONC 29.6 g/dl (31.0-37.0); MEAN PLATELET VOLUME 10.5 fl (7.0-11.0); MONO # 0.4 (0.1-0.6); MONO % 5.6 % (1.0-6.0); RBC 4.86 10^6/uL (3.5-6.1); RED CELL DISTRIBUTION WIDTH 17.3 % (11.5-14.5); WHITE BLOOD COUNT 7.8 10^3/uL (4.5-11.0)
[2019-01-31 09:23] LABS: ALB/GLOB RATIO 0.8 (1.1-1.8); ALBUMIN 3.7 g/dL (3.0-4.8); ALT/SGPT 27 U/L (7-56); AST/SGOT 33 U/L (14-36); BLOOD UREA NITROGEN 19 mg/dL (7-21); CALCIUM 9.6 mg/dL (8.4-10.5); GFR NON-AFRICAN AMERICAN > 60
[2019-01-31] MEDS: levoFLOXacin 750 MG TAB PO SCH (09:38)
[2019-01-31] MEDS: Amoxicillin-Clav 875-125 mg Tab PO SCH ×2 (09:38→22:24)
[2019-01-31] MEDS: Enoxaparin 40 mg Syringe SC SCH (09:39)
[2019-01-31] MEDS: Insulin Lispro (humaLOG) MEDIUM Coverage SC SCH ×4 (09:40→22:23)
[2019-01-31] MEDS: Nystatin 100,000 Units/gm Topical Pow(15 gm) TOP SCH ×2 (12:04→17:45)
--- NOTE | 2019-01-31 12:26 | CP.PCM.PN ---
<Nikita Boss - Last Filed: 01/31/19 13:56> Subjective - Date & Time of Evaluation Date of Evaluation: 01/31/19 Time of Evaluation: 08:00 - Subjective Subjective: Nikita Boss PGY-1 Progress Note for Hospitalist Service Patient seen and evaluated at bedside this morning. No acute events reported overnight. Patient noted to be sitting in chair with no new complaints today. Patient denies shortness of breath but does report oozing RLE ulcer. Discussed with child support case officer the possibility of bariatric walker. Objective - Vital Signs/Intake and Output Vital Signs (last 24 hours): Temp Pulse Resp BP Pulse Ox 98 F 92 H 24 107/73 94 L 01/31/19 06:00 01/31/19 06:00 01/31/19 06:00 01/31/19 09:39 01/31/19 06:00 Intake and Output: 01/31/19 01/31/19 06:59 18:59 Intake Total 1020 Balance 1020 - Medications Medications: Current Medications Acetaminophen (Tylenol 325mg Tab) 650 mg PO Q6H PRN PRN Reason: Pain, Mild (1-3) Last Admin: 01/25/19 05:08 Dose: 650 mg Amoxicillin/Clavulanate Potassium (Augmentin 875 Mg-125 Mg Tab) 1 tab PO Q12 [facility]UL[facility]; Protocol Last Admin: 01/31/19 09:38 Dose: 1 tab Dextrose (Dextrose 50% Inj) 0 ml IV STAT PRN; Protocol PRN Reason: Hypoglycemia Protocol Enoxaparin Sodium (Lovenox) 40 mg SC DAILY [facility]; Protocol Last Admin: 01/31/19 09:39 Dose: 40 mg Ergocalciferol (Drisdol 50,000 Intl Units Cap) 1 cap PO Q7D [facility]UL[facility] Last Admin: 01/26/19 17:46 Dose: 1 cap Furosemide (Lasix) 40 mg PO DAILY [facility]UL[facility] Dextrose (Dextrose 5% In Water 1000 Ml) 1,000 mls @ 0 mls/hr IV .Q0M PRN; Protocol PRN Reason: Hypoglycemia Protocol Ibuprofen (Motrin Tab) 600 mg PO Q6H PRN PRN Reason: Pain, moderate (4-7) Last Admin: 01/29/19 20:42 Dose: 600 mg Insulin Human Lispro (Humalog Med) 0 units SC ACHS [facility]; Protocol Last Admin: 01/31/19 09:40 Dose: 1 unit Levalbuterol HCl (Xopenex) 1.25 mg IH Q2H PRN PRN Reason: Shortness of Breath Last Admin: 01/25/19 05:10 Dose: 1.25 mg Levofloxacin (Levaquin) 750 mg PO DAILY [facility]; Protocol Last Admin: 01/31/19 09:38 Dose: 750 mg Nicotine (Nicoderm Cq) 1 patch TD DAILY PRN PRN Reason: URGE TO SMOKE Last Admin: 01/30/19 09:39 Dose: 1 patch Nystatin (Nystop Topical Powder) 0 gm TOP BID [facility] Last Admin: 01/31/19 12:04 Dose: 1 applic Ondansetron HCl (Zofran Inj) 4 mg IVP Q6H PRN PRN Reason: Nausea/Vomiting Oxycodone HCl (Oxycodone Immediate Release Tab) 30 mg PO Q8H PRN PRN Reason: Pain, severe (8-10) Last Admin: 01/31/19 09:51 Dose: 30 mg Pantoprazole Sodium (Protonix Ec Tab) 40 mg PO 0600 [facility] Last Admin: 01/31/19 06:04 Dose: 40 mg - Labs Labs: 01/31/19 08:30 01/31/19 08:30 PT 14.0 SECONDS (9.4-12.5) H 01/25/19 02:23 INR 1.26 01/25/19 02:23 APTT 39.3 Seconds (26.9-38.3) H 01/25/19 02:23 - Additional Findings Additional findings: - Constitutional Appears: Non-toxic, No Acute Distress - Head Exam Head Exam: ATRAUMATIC, NORMAL INSPECTION - Eye Exam Eye Exam: EOMI Pupil Exam: PERRL - ENT Exam ENT Exam: Mucous Membranes Moist - Respiratory Exam Respiratory Exam: absent: Accessory Muscle Use, Respiratory Distress Additional comments: mild expiratory wheezing appreciated B/L - Cardiovascular Exam Cardiovascular Exam: REGULAR RHYTHM, +S1, +S2 - GI/Abdominal Exam GI & Abdominal Exam: Soft, Normal Bowel Sounds. absent: Guarding, Rigid, Tenderness Additional comments: morbidly obese abdomen - Extremities Exam Extremities Exam: absent: Calf Tenderness Additional comments: B/L leg venous stasis dry skin appreciated, swollen with right medial foot lesion noted [id number], extensive venous stasis dermatitis. - Neurological Exam Neurological Exam: Alert, CN II-XII Intact, Oriented x3 - Skin Skin Exam: Dry, Normal Color, Warm Assessment and Plan - Assessment and Plan (Free Text) Assessment: 53 yo F with PMH of COPD, WINTER, BMI of 64, and DM2 (last A1c 6.9) presents with worsening b/l LE edema, erythema presents with inability to ambulate because of LE swelling. She is admitted for management of b/l LE cellulitis/wounds. Awaiting bariatric walker. Patient was able to ambulate with assistance from walker. Plan: B/L LE venous stasis -Continue day 2 of Augmentin and Levaquin -Afebrile, no leukocytosis -Wound cx from foot and leg positive for staph aureus and enterobacter -blood cx negative for 5 days -Podiatry consult placed for foot care/management of 2 foot ulcers - recs appreciated for draining ulcer -Procal 0.09 -B/l LE doppler US negative for DVT -BNP 78, Echo shows EF 59% and RVSP of 40, concerning for component of pulm. hypertension -ID consult - Dr. Perry -Furosemide converted to 40 mg PO daily -PT recs appreciated, awaiting bariatric walker as patient is unsafe discharge due inability to currently afford bariatric walker and is at fall risk Hx of COPD -Xopenex PRN for SOB -No active issues -Echo 01/26 shows EF of 59%, technically limited study Hx of WINTER -Likely has component of obesity hypoventilation syndrome -Pulmonology consult Hx of Tobacco abuse -Nicotine patch PRN -Advise patient regularly on importance of abstinence Hx of DM2 - poor control -HgbA1c 9 -Continue ISS, sugars controlled Low Vitamin D -<12 in serum -50,000 Vit D supplementation once a week Morbid Obesity - BMI 64 -Damage Adjuster referral placed, all recs appreciated -Will need counseling regarding importance of weight loss PPX/Diet -Lovenox/protonix -HHD, diabetic diet Dispo: PT recommends HWS, but patient without current [place] insurance. Awaiting bariatric walker. Patient seen, case reviewed and plan approved by Dr. Jose Malave. Nikita Boss, PGY-1 <Tatum Malave R - Last Filed: 01/31/19 14:55> Objective - Vital Signs/Intake and Output Vital Signs (last 24 hours): Temp Pulse Resp BP Pulse Ox 98.3 F 94 H 20 147/83 95 01/31/19 14:00 01/31/19 14:00 01/31/19 14:00 01/31/19 14:00 01/31/19 14:00 Intake and Output: 01/31/19 01/31/19 06:59 18:59 Intake Total 1020 Balance 1020 - Medications Medications: Current Medications Acetaminophen (Tylenol 325mg Tab) 650 mg PO Q6H PRN PRN Reason: Pain, Mild (1-3) Last Admin: 01/25/19 05:08 Dose: 650 mg Amoxicillin/Clavulanate Potassium (Augmentin 875 Mg-125 Mg Tab) 1 tab PO Q12 [facility]; Protocol Last Admin: 01/31/19 09:38 Dose: 1 tab Dextrose (Dextrose 50% Inj) 0 ml IV STAT PRN; Protocol PRN Reason: Hypoglycemia Protocol Enoxaparin Sodium (Lovenox) 40 mg SC DAILY [facility]; Protocol Last Admin: 01/31/19 09:39 Dose: 40 mg Ergocalciferol (Drisdol 50,000 Intl Units Cap) 1 cap PO Q7D [facility] Last Admin: 01/26/19 17:46 Dose: 1 cap Furosemide (Lasix) 40 mg PO DAILY [facility] Dextrose (Dextrose 5% In Water 1000 Ml) 1,000 mls @ 0 mls/hr IV .Q0M PRN; Protocol PRN Reason: Hypoglycemia Protocol Ibuprofen (Motrin Tab) 600 mg PO Q6H PRN PRN Reason: Pain, moderate (4-7) Last Admin: 01/29/19 20:42 Dose: 600 mg Insulin Human Lispro (Humalog Med) 0 units SC ACHS [facility]; Protocol Last Admin: 01/31/19 13:44 Dose: 3 unit Levalbuterol HCl (Xopenex) 1.25 mg IH Q2H PRN PRN Reason: Shortness of Breath Last Admin: 01/25/19 05:10 Dose: 1.25 mg Levofloxacin (Levaquin) 750 mg PO DAILY [facility]; Protocol Last Admin: 01/31/19 09:38 Dose: 750 mg Nicotine (Nicoderm Cq) 1 patch TD DAILY PRN PRN Reason: URGE TO SMOKE Last Admin: 01/30/19 09:39 Dose: 1 patch Nystatin (Nystop Topical Powder) 0 gm TOP BID [facility] Last Admin: 01/31/19 12:04 Dose: 1 applic Ondansetron HCl (Zofran Inj) 4 mg IVP Q6H PRN PRN Reason: Nausea/Vomiting Oxycodone HCl (Oxycodone Immediate Release Tab) 30 mg PO Q8H PRN PRN Reason: Pain, severe (8-10) Last Admin: 01/31/19 09:51 Dose: 30 mg Pantoprazole Sodium (Protonix Ec Tab) 40 mg PO 0600 [facility] Last Admin: 01/31/19 06:04 Dose: 40 mg - Labs Labs: 01/31/19 08:30 01/31/19 08:30 PT 14.0 SECONDS (9.4-12.5) H 01/25/19 02:23 INR 1.26 01/25/19 02:23 APTT 39.3 Seconds (26.9-38.3) H 01/25/19 02:23 Attending/Attestation - Attestation I have personally seen and examined this patient.: Yes I have fully participated in the care of the patient.: Yes I have reviewed all pertinent clinical information, including history, physical exam and plan: Yes Notes (Text): Patient seen and examined by me with resident at 1:30PM on 01/31/19. Case including HPI, physical exam, and assessment and plan discussed with resident. Agree with above with following additions/corrections. Patient is 53-year-old female past medical history significant for COPD, obstructive sleep apnea noncompliant with CPAP, morbid obesity, type 2 diabetes, and noncompliance with medications that presented to the emergency room with bilateral lower extremity swelling, redness, and pain. Patient states that she is feeling a little better. Patient is walking to the restroom with assistance from her . Patient states she is waiting for p hysical therapy to see her today. States her legs feel better but are still painful with ambulation. She denies abdominal pain. No nausea or vomiting. No chest pain or palpitations. No shortness of breath. No headaches or dizziness. No fevers or chills. No dysuria. Physical exam: General: Awake and alert, sitting up in chair in no acute distress. Poor hygiene HEENT: Normocephalic, atraumatic, Extraocular muscles intact, pupils equal and reactive, no scleral icterus. Oropharynx is pink and moist. Neck is supple. Cardiovascular: Normal rhythm. Normal S1 and S2. No murmurs, rubs, or gallops ap preciated. Pulmonary: Normal respiratory effort. Decreased breath sounds. No rhonchi, rales, or wheezing appreciated. Gastrointestinal: Soft. Nontender. Nondistended. Positive bowel sounds all 4 quadrants. No guarding. Morbidly obsese abdomen. Musculoskeletal: Moves all extremities. Bilateral lower extremity edema, no erythema, and mild tenderness. Dressing on wounds clean, dry, and intact. Central nervous system: AAO x 3 Dermatologic: Skin warm and dry. Resolving fungal rash under abdominal folds. Diffuse xerosis cutis, improved with lotion. Bilateral lower extremity venous stasis dermatitis. Assessment and plan: Patient is 53-year-old female past medical history significant for COPD, obstructive sleep apnea noncompliant with CPAP, morbid obesity, type 2 diabetes, and noncompliance with medications that presented to the emergency room with bilateral lower extremity swelling, redness, and pain. 1. Bilateral lower extremity cellulitis, edema. Right lower extremity wounds, right posterior thigh wound. Improving. ID following, recommendations appreciated. All wound cultures positive for Enterobacter Cloacae and Staphylococcus aureus. Blood cultures with no growth. Continue Levaquin and Augmentin. Continue Lasix. Continue with wound care. Podiatry following, recommendations appreciated. Bilateral lower extremity venous dopplers negative, very limited study. Procalcitonin 0.09. Continue physical therapy, patient unsafe discharge as needs assistive device to ambulate and unable to afford bariatric walker. 2. Poorly controlled DM2. Continue insulin sliding scale. HgbA1C 9. Continue to monitor accuchecks. Diabetic education. 3. COPD. WINTER. Continue CPAP at bedtime. Continue Xopenex as needed. Pulmonary recommendations appreciated. Patient has been counseled at length on tobacco cessation. Not in acute COPD exacerbation. 2d Echo per charge accounts audit clerk showed technically limited study, poor acoustic windows noted, chamber sizes appear within normal limits, no obvious valvular abnormality seen, EF approximately 59.2%. 4. Tobacco abuse. Patient again counseled at length on cessation. Continue nicoderm. 5. Noncompliance. Patient has not been taking medications or following with a doctor for over a year. Patient being counseled daily on importance of taking medications and following with a primary care doctor. 6. Vitamin D deficiency. Continue 50,000 IU weekly. 7. Morbid Obesity. BMI 64. Damage Adjuster consulted. Diet and exercise discussed at length with patient. 8. GI/DVT prophylaxis. Lovenox/Protonix. 9. Patient is a full code. Case was discussed in detail with the patient regarding current diagnosis and treatment plan. All questions answered.
--- NOTE | 2019-01-31 14:38 | PN ---
DATE: 01/31/2019 SUBJECTIVE: This is a 53-year-old morbidly obese female, seen for followup of observations to her left lower extremity. The patient is seen at bedside. She is extremely obese with multiple rolls and folds of her lower extremity causing this edema in her legs, which causing the open weeping ulcers. The dressings she has in place at this time are intact; however, there is drainage on the dressing and it is wet. The drainage is serous in nature. 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 There is lichenification of the skin and there are two small ulcerations, which are still draining. No cellulitis is noted. ASSESSMENT: Morbid obesity with stasis dermatitis and secondary small blisters. PLAN OF TREATMENT: Continue local care. We put on super absorbent dressings to contain some of the drainage and dressings are being changed twice a day. We also ordered Lac-Hydrin and Aquaphor for the patient. We also discussed with the patient bariatric surgery, and she is open and amenable to staying. She is going down to [place] and she states that she will look into it when she gets down there. The patient's dressing was done by myself and she will be seen in followup. Frances Martinez DPM
--- NOTE | 2019-01-31 17:35 | CP.PCM.PN ---
Subjective - Date & Time of Evaluation Date of Evaluation: 01/31/19 Time of Evaluation: 16:15 - Subjective Subjective: Infectious Disease Follow Up: January 31, 2019 53yo female with PMHx of morbid obesity, BMI>60, COPD, WINTER, OHS, non compliant with CPAP, active smoker 1/2pk per day, presented with worsening LE edema. Pt states that she has not seen a physician in over year, has not taken any medications, and has been non compliant with CPAP; actively smoking. Pt reports she has gained 40-50lbs over the last year, and does not use her CPAP machine because of "malfunction with tubing". Right lower leg/foot wound growing multiple organisms. MSSA and Enterobacter in wound cultures. No new issues. Strangely enough, the patient seemed surprised at her large weight gains although her and other family member were saying that she eats way too much at home. Inability to walk more than a short distance but improving with PT. Objective - Vital Signs/Intake and Output Vital Signs (last 24 hours): Temp Pulse Resp BP Pulse Ox 98.3 F 94 H 20 147/83 95 01/31/19 14:00 01/31/19 14:00 01/31/19 14:00 01/31/19 14:00 01/31/19 14:00 Intake and Output: 01/31/19 01/31/19 06:59 18:59 Intake Total 1020 600 Balance 1020 600 - Medications Medications: Current Medications Acetaminophen (Tylenol 325mg Tab) 650 mg PO Q6H PRN PRN Reason: Pain, Mild (1-3) Last Admin: 01/25/19 05:08 Dose: 650 mg Amoxicillin/Clavulanate Potassium (Augmentin 875 Mg-125 Mg Tab) 1 tab PO Q12 [facility]; Protocol Last Admin: 01/31/19 09:38 Dose: 1 tab Dextrose (Dextrose 50% Inj) 0 ml IV STAT PRN; Protocol PRN Reason: Hypoglycemia Protocol Enoxaparin Sodium (Lovenox) 40 mg SC DAILY [facility]; Protocol Last Admin: 01/31/19 09:39 Dose: 40 mg Ergocalciferol (Drisdol 50,000 Intl Units Cap) 1 cap PO Q7D [facility] Last Admin: 01/26/19 17:46 Dose: 1 cap Furosemide (Lasix) 40 mg PO DAILY [facility] Dextrose (Dextrose 5% In Water 1000 Ml) 1,000 mls @ 0 mls/hr IV .Q0M PRN; Protocol PRN Reason: Hypoglycemia Protocol Ibuprofen (Motrin Tab) 600 mg PO Q6H PRN PRN Reason: Pain, moderate (4-7) Last Admin: 01/29/19 20:42 Dose: 600 mg Insulin Human Lispro (Humalog Med) 0 units SC ACHS [facility]; Protocol Last Admin: 01/31/19 13:44 Dose: 3 unit Levalbuterol HCl (Xopenex) 1.25 mg IH Q2H PRN PRN Reason: Shortness of Breath Last Admin: 01/25/19 05:10 Dose: 1.25 mg Levofloxacin (Levaquin) 750 mg PO DAILY [facility]; Protocol Last Admin: 01/31/19 09:38 Dose: 750 mg Nicotine (Nicoderm Cq) 1 patch TD DAILY PRN PRN Reason: URGE TO SMOKE Last Admin: 01/30/19 09:39 Dose: 1 patch Nystatin (Nystop Topical Powder) 0 gm TOP BID [facility] Last Admin: 01/31/19 12:04 Dose: 1 applic Ondansetron HCl (Zofran Inj) 4 mg IVP Q6H PRN PRN Reason: Nausea/Vomiting Oxycodone HCl (Oxycodone Immediate Release Tab) 30 mg PO Q8H PRN PRN Reason: Pain, severe (8-10) Last Admin: 01/31/19 09:51 Dose: 30 mg Pantoprazole Sodium (Protonix Ec Tab) 40 mg PO 0600 [facility] Last Admin: 01/31/19 06:04 Dose: 40 mg - Labs Labs: 01/31/19 08:30 01/31/19 08:30 PT 14.0 SECONDS (9.4-12.5) H 01/25/19 02:23 INR 1.26 01/25/19 02:23 APTT 39.3 Seconds (26.9-38.3) H 01/25/19 02:23 - Constitutional Appears: Non-toxic, No Acute Distress, Chronically Ill - Head Exam Head Exam: ATRAUMATIC, NORMOCEPHALIC - Eye Exam Eye Exam: EOMI, PERRL Pupil Exam: NORMAL ACCOMODATION, PERRL - ENT Exam ENT Exam: Mucous Membranes Moist, Normal External Ear Exam, TM's Normal Bilaterally - Neck Exam Neck Exam: Full ROM, Normal Inspection - Respiratory Exam Respiratory Exam: Clear to Ausculation Bilateral, NORMAL BREATHING PATTERN. absent: Rales, Rhonchi, Wheezes - Cardiovascular Exam Cardiovascular Exam: REGULAR RHYTHM, RRR, +S1, +S2 - GI/Abdominal Exam GI & Abdominal Exam: Soft, Normal Bowel Sounds. absent: Distended, Tenderness - Extremities Exam Extremities Exam: Full ROM, Joint Swelling, Pedal Edema Additional comments: Vascular: DP/PT faintly palpable, CFT < 3 seconds, TG warm to warm, + 2 pitting edema appreciated to b/l lower extremities Ortho: MMT 4/5, pain upon palpation of R posterior calf Neuro: Gross sensation intact, protective sensation diminished Derm: B/L lower extremity weeping edema with superficial ulcerations. RLE= Superficial ulceration measuring approx 3 x 1.5 x .1 cm with mixed fibrotic/granular base noted to anterior lateral aspect of leg. + serous drainage, mild malodor, no purulence appreciated, no erythema, no cellulitis appreciated. Strong odor from right lower leg. LLE= superficial skin tears appreciated to anterior aspect of leg There is a good amount of serosaguinous drainage from the right lower extremity ulceration. - Neurological Exam Neurological Exam: Alert, Awake, CN II-XII Intact, Oriented x3 - Psychiatric Exam Psychiatric exam: Normal Affect, Normal Mood - Skin Additional comments: As above. Assessment and Plan - Assessment and Plan (Free Text) Assessment: 53 yo female with multiple medical issues that include DM, HTN, morbid obesity, and WINTER presenting with significant weight gain of 51 pounds in the past month and significant swelling of the bilateral lower extremities. Started on Zosyn and IV Vancomycin. Monitor renal function. Franco cultures pending. Wound cultures pending but growing gram positive cocci in clusters and gram negative rods. Identification was MSSA and Enterobacter. Continue with Zosyn alone at this point while in hospital. Patient likely needs diuresis as well. Noted the patient has an abdominal mass on CT scan. Can consider use of oral Augmentin 875 mg BID and Levaquin 750 mg daily for 10- 14 days more when patient is ready for discharge. Supportive care Thank you for allowing me to participate in the care of the patient, we will follow with you.
[2019-02-01] MEDS: oxyCODONE 15 mg Immediate Release Tab PO PRN ×3 (01:29→16:58)
[2019-02-01] MEDS: Pantoprazole 40 mg EC Tab PO SCH (05:47)
[2019-02-01 06:34] LABS: BASO # 0.01 K/mm3 (0.0-2.0); BASO % 0.1 % (0.0-3.0); EOS # 0.4 (0.0-0.7); EOS % 5.3 % (1.5-5.0); HEMOGLOBIN 11.8 g/dL (12.0-16.0); LYMPH # 0.9 (1.2-3.4); LYMPH % 11.7 % (22.0-35.0); MEAN CELL VOLUME 82.3 fl (80.0-105.0); MEAN CORPUSCULAR HGB CONC 29.2 g/dl (31.0-37.0); MEAN PLATELET VOLUME 10.3 fl (7.0-11.0); MONO % 13.2 % (1.0-6.0); RBC 4.91 10^6/uL (3.5-6.1); RED CELL DISTRIBUTION WIDTH 17.2 % (11.5-14.5); WHITE BLOOD COUNT 7.7 10^3/uL (4.5-11.0)
[2019-02-01 06:41] LABS: ALB/GLOB RATIO 0.9 (1.1-1.8); ALT/SGPT 24 U/L (7-56); AST/SGOT 33 U/L (14-36); BLOOD UREA NITROGEN 20 mg/dL (7-21); CALCIUM 9.7 mg/dL (8.4-10.5); GFR NON-AFRICAN AMERICAN > 60
[2019-02-01] MEDS: levoFLOXacin 750 MG TAB PO SCH (09:25)
[2019-02-01] MEDS: Enoxaparin 40 mg Syringe SC SCH (09:25)
[2019-02-01] MEDS: Amoxicillin-Clav 875-125 mg Tab PO SCH ×2 (09:25→22:05)
[2019-02-01] MEDS: Insulin Lispro (humaLOG) MEDIUM Coverage SC SCH ×4 (09:26→22:04)
[2019-02-01] MEDS: Nystatin 100,000 Units/gm Topical Pow(15 gm) TOP SCH ×2 (09:27→16:59)
--- NOTE | 2019-02-01 11:31 | CP.PCM.PN ---
<Terry Sidhu - Last Filed: 02/01/19 11:27> Subjective - Date & Time of Evaluation Date of Evaluation: 02/01/19 Time of Evaluation: 11:27 - Subjective Subjective: Podiatry progress note - Drs. Martinez/Monica 53F seen and evaluated this AM with Dr. Anderson. Patient lying in bed sideways with legs hanging off the bed completely dependent. Patient states she has not been elevating her legs and they remain in the dependent position for the majority of the day despite education. Per nurse she is noncompliant and continues to take her dressings off. Pain in lower extremity unchanged. Wounds continue to weep and saturate dressings. Denies n/v/f/d/c/sob/valle/cp. Reports elongated nails. Objective - Vital Signs/Intake and Output Vital Signs (last 24 hours): Temp Pulse Resp BP Pulse Ox 97.8 F 81 18 110/74 95 02/01/19 06:00 02/01/19 06:00 02/01/19 06:00 02/01/19 09:25 02/01/19 06:00 Intake and Output: 02/01/19 02/01/19 06:59 18:59 Intake Total 1200 Balance 1200 - Medications Medications: Current Medications Acetaminophen (Tylenol 325mg Tab) 650 mg PO Q6H PRN PRN Reason: Pain, Mild (1-3) Last Admin: 01/25/19 05:08 Dose: 650 mg Amoxicillin/Clavulanate Potassium (Augmentin 875 Mg-125 Mg Tab) 1 tab PO Q12 [facility]; Protocol Last Admin: 02/01/19 09:25 Dose: 1 tab Dextrose (Dextrose 50% Inj) 0 ml IV STAT PRN; Protocol PRN Reason: Hypoglycemia Protocol Enoxaparin Sodium (Lovenox) 40 mg SC DAILY [facility]; Protocol Last Admin: 02/01/19 09:25 Dose: 40 mg Ergocalciferol (Drisdol 50,000 Intl Units Cap) 1 cap PO Q7D [facility] Last Admin: 01/26/19 17:46 Dose: 1 cap Furosemide (Lasix) 40 mg PO DAILY [facility] Last Admin: 02/01/19 09:25 Dose: 40 mg Dextrose (Dextrose 5% In Water 1000 Ml) 1,000 mls @ 0 mls/hr IV .Q0M PRN; Protocol PRN Reason: Hypoglycemia Protocol Ibuprofen (Motrin Tab) 600 mg PO Q6H PRN PRN Reason: Pain, moderate (4-7) Last Admin: 01/29/19 20:42 Dose: 600 mg Insulin Human Lispro (Humalog Med) 0 units SC ACHS [facility]; Protocol Last Admin: 02/01/19 09:26 Dose: 1 unit Levalbuterol HCl (Xopenex) 1.25 mg IH Q2H PRN PRN Reason: Shortness of Breath Last Admin: 01/25/19 05:10 Dose: 1.25 mg Levofloxacin (Levaquin) 750 mg PO DAILY [facility]; Protocol Last Admin: 02/01/19 09:25 Dose: 750 mg Nicotine (Nicoderm Cq) 1 patch TD DAILY PRN PRN Reason: URGE TO SMOKE Last Admin: 01/30/19 09:39 Dose: 1 patch Nystatin (Nystop Topical Powder) 0 gm TOP BID [facility] Last Admin: 02/01/19 09:27 Dose: 1 applic Ondansetron HCl (Zofran Inj) 4 mg IVP Q6H PRN PRN Reason: Nausea/Vomiting Oxycodone HCl (Oxycodone Immediate Release Tab) 30 mg PO Q8H PRN PRN Reason: Pain, severe (8-10) Last Admin: 02/01/19 09:25 Dose: 30 mg Pantoprazole Sodium (Protonix Ec Tab) 40 mg PO 0600 [facility] Last Admin: 02/01/19 05:47 Dose: 40 mg - Labs Labs: 02/01/19 06:00 02/01/19 06:00 PT 14.0 SECONDS (9.4-12.5) H 01/25/19 02:23 INR 1.26 01/25/19 02:23 APTT 39.3 Seconds (26.9-38.3) H 01/25/19 02:23 - Constitutional Appears: Non-toxic - Head Exam Head Exam: ATRAUMATIC - Extremities Exam Additional comments: Vascular: DP/PT faintly palpable, CFT < 3 seconds, TG warm to warm, + 2 pitting edema appreciated to b/l lower extremities Ortho: MMT 4/5, pain upon palpation of R posterior calf Neuro: Gross sensation intact, protective sensation diminished Derm: B/L lower extremity weeping edema with superficial ulcerations. Lichenification appreciated RLE= Superficial ulceration measuring approx 3 x 1.5 x .1 cm with mixed fibrotic/granular base noted to anterior lateral aspect of leg. + serous drainage, mild malodor, no purulence appreciated, no erythema, no cellulitis appreciated Superficial ulceration #2 noted to medial ankle measuring approximately 1 x 1 x 0.1 cm with fibrogranular base and severe serous drainage present. Nails x10 are elongated and dystrophic. LLE= no open lesions at this time, no erythema, no cellulitis - Neurological Exam Neurological Exam: Alert, Awake, Oriented x3 - Psychiatric Exam Psychiatric exam: Normal Affect Assessment and Plan - Assessment and Plan (Free Text) Assessment: 53F with 1) R lower extremity pain and weeping edema, 2) elongated and dystrophic nails Plan: Patient seen and evaluated with Dr. Monica GILLETTE wound culture reveals growth of Enterobacter, Staph aureus LE US taken; no DVT Local wound care; maxorb, DSD -Nursing communication ordered for dressing changes Q shift due to increased drainage Nails cut with nail nipper without incident - patient tolerated well Educated on importance of elevating b/l lower extremities - patient continues to be noncompliant despite maximal education No plan for intervention Stable for discharge and outpatient f/u per podiatry Podiatry will continue to follow <Jhonathan Anderson - Last Filed: 02/01/19 16:42> Objective - Vital Signs/Intake and Output Vital Signs (last 24 hours): Temp Pulse Resp BP Pulse Ox 98.3 F 103 H 20 163/76 H 99 02/01/19 14:00 02/01/19 14:00 02/01/19 14:00 02/01/19 14:00 02/01/19 14:00 Intake and Output: 02/01/19 02/01/19 06:59 18:59 Intake Total 1200 480 Balance 1200 480 - Medications Medications: Current Medications Acetaminophen (Tylenol 325mg Tab) 650 mg PO Q6H PRN PRN Reason: Pain, Mild (1-3) Last Admin: 01/25/19 05:08 Dose: 650 mg Amoxicillin/Clavulanate Potassium (Augmentin 875 Mg-125 Mg Tab) 1 tab PO Q12 [facility]; Protocol Last Admin: 02/01/19 09:25 Dose: 1 tab Dextrose (Dextrose 50% Inj) 0 ml IV STAT PRN; Protocol PRN Reason: Hypoglycemia Protocol Enoxaparin Sodium (Lovenox) 40 mg SC DAILY [facility]; Protocol Last Admin: 02/01/19 09:25 Dose: 40 mg Ergocalciferol (Drisdol 50,000 Intl Units Cap) 1 cap PO Q7D [facility] Last Admin: 01/26/19 17:46 Dose: 1 cap Furosemide (Lasix) 40 mg PO DAILY [facility] Last Admin: 02/01/19 09:25 Dose: 40 mg Dextrose (Dextrose 5% In Water 1000 Ml) 1,000 mls @ 0 mls/hr IV .Q0M PRN; Protocol PRN Reason: Hypoglycemia Protocol Ibuprofen (Motrin Tab) 600 mg PO Q6H PRN PRN Reason: Pain, moderate (4-7) Last Admin: 01/29/19 20:42 Dose: 600 mg Insulin Human Lispro (Humalog Med) 0 units SC ACHS [facility]; Protocol Last Admin: 02/01/19 09:26 Dose: 1 unit Levalbuterol HCl (Xopenex) 1.25 mg IH Q2H PRN PRN Reason: Shortness of Breath Last Admin: 01/25/19 05:10 Dose: 1.25 mg Levofloxacin (Levaquin) 750 mg PO DAILY [facility]; Protocol Last Admin: 02/01/19 09:25 Dose: 750 mg Nicotine (Nicoderm Cq) 1 patch TD DAILY PRN PRN Reason: URGE TO SMOKE Last Admin: 01/30/19 09:39 Dose: 1 patch Nystatin (Nystop Topical Powder) 0 gm TOP BID [facility] Last Admin: 02/01/19 09:27 Dose: 1 applic Ondansetron HCl (Zofran Inj) 4 mg IVP Q6H PRN PRN Reason: Nausea/Vomiting Oxycodone HCl (Oxycodone Immediate Release Tab) 30 mg PO Q8H PRN PRN Reason: Pain, severe (8-10) Last Admin: 02/01/19 09:25 Dose: 30 mg Pantoprazole Sodium (Protonix Ec Tab) 40 mg PO 0600 [facility] Last Admin: 02/01/19 05:47 Dose: 40 mg - Labs Labs: 02/01/19 06:00 02/01/19 06:00 PT 14.0 SECONDS (9.4-12.5) H 03/13/19 02:23 INR 1.26 01/25/19 02:23 APTT 39.3 Seconds (26.9-38.3) H 01/25/19 02:23 Attending/Attestation - Attestation I have personally seen and examined this patient.: Yes I have fully participated in the care of the patient.: Yes I have reviewed all pertinent clinical information, including history, physical exam and plan: Yes
--- NOTE | 2019-02-01 13:21 | CP.PCM.PN ---
<Nikita Boss - Last Filed: 02/01/19 13:09> Subjective - Date & Time of Evaluation Date of Evaluation: 02/01/19 Time of Evaluation: 08:00 - Subjective Subjective: Nikita Boss PGY-1 Progress Note for Hospitalist Service Patient seen and evaluated at bedside this morning. No acute events reported overnight. Patient noted to be sitting in chair with no new complaints today. Patient denies shortness of breath but does report weeping RLE ulcer. Discussed with continuous pillowcase cutter the possibility of acquiring bariatric walker. Objective - Vital Signs/Intake and Output Vital Signs (last 24 hours): Temp Pulse Resp BP Pulse Ox 97.8 F 81 18 110/74 95 02/01/19 06:00 02/01/19 06:00 02/01/19 06:00 02/01/19 09:25 02/01/19 06:00 Intake and Output: 02/01/19 02/01/19 06:59 18:59 Intake Total 1200 Balance 1200 - Medications Medications: Current Medications Acetaminophen (Tylenol 325mg Tab) 650 mg PO Q6H PRN PRN Reason: Pain, Mild (1-3) Last Admin: 01/25/19 05:08 Dose: 650 mg Amoxicillin/Clavulanate Potassium (Augmentin 875 Mg-125 Mg Tab) 1 tab PO Q12 S ; Protocol Last Admin: 02/01/19 09:25 Dose: 1 tab Dextrose (Dextrose 50% Inj) 0 ml IV STAT PRN; Protocol PRN Reason: Hypoglycemia Protocol Enoxaparin Sodium (Lovenox) 40 mg SC DAILY [facility]; Protocol Last Admin: 02/01/19 09:25 Dose: 40 mg Ergocalciferol (Drisdol 50,000 Intl Units Cap) 1 cap PO Q7D [facility] Last Admin: 01/26/19 17:46 Dose: 1 cap Furosemide (Lasix) 40 mg PO DAILY [facility] Last Admin: 02/01/19 09:25 Dose: 40 mg Dextrose (Dextrose 5% In Water 1000 Ml) 1,000 mls @ 0 mls/hr IV .Q0M PRN; Protocol PRN Reason: Hypoglycemia Protocol Ibuprofen (Motrin Tab) 600 mg PO Q6H PRN PRN Reason: Pain, moderate (4-7) Last Admin: 01/29/19 20:42 Dose: 600 mg Insulin Human Lispro (Humalog Med) 0 units SC ACHS [facility]; Protocol Last Admin: 02/01/19 09:26 Dose: 1 unit Levalbuterol HCl (Xopenex) 1.25 mg IH Q2H PRN PRN Reason: Shortness of Breath Last Admin: 01/25/19 05:10 Dose: 1.25 mg Levofloxacin (Levaquin) 750 mg PO DAILY [facility]; Protocol Last Admin: 02/01/19 09:25 Dose: 750 mg Nicotine (Nicoderm Cq) 1 patch TD DAILY PRN PRN Reason: URGE TO SMOKE Last Admin: 01/30/19 09:39 Dose: 1 patch Nystatin (Nystop Topical Powder) 0 gm TOP BID [facility] Last Admin: 02/01/19 09:27 Dose: 1 applic Ondansetron HCl (Zofran Inj) 4 mg IVP Q6H PRN PRN Reason: Nausea/Vomiting Oxycodone HCl (Oxycodone Immediate Release Tab) 30 mg PO Q8H PRN PRN Reason: Pain, severe (8-10) Last Admin: 02/01/19 09:25 Dose: 30 mg Pantoprazole Sodium (Protonix Ec Tab) 40 mg PO 0600 [facility] Last Admin: 02/01/19 05:47 Dose: 40 mg - Labs Labs: 02/01/19 06:00 02/01/19 06:00 PT 14.0 SECONDS (9.4-12.5) H 01/25/19 02:23 INR 1.26 01/25/19 02:23 APTT 39.3 Seconds (26.9-38.3) H 01/25/19 02:23 - Additional Findings Additional findings: - Constitutional Appears: Non-toxic, No Acute Distress - Head Exam Head Exam: ATRAUMATIC, NORMAL INSPECTION - Eye Exam Eye Exam: EOMI Pupil Exam: PERRL - ENT Exam ENT Exam: Mucous Membranes Moist - Respiratory Exam Respiratory Exam: absent: Accessory Muscle Use, Respiratory Distress Additional comments: mild expiratory wheezing appreciated B/L - Cardiovascular Exam Cardiovascular Exam: REGULAR RHYTHM, +S1, +S2 - GI/Abdominal Exam GI & Abdominal Exam: Soft, Normal Bowel Sounds. absent: Guarding, Rigid, Tenderness Additional comments: morbidly obese abdomen - Extremities Exam Extremities Exam: absent: Calf Tenderness Additional comments: B/L leg venous stasis dry skin appreciated, swollen with right medial foot lesion noted [id number], wrapped, extensive venous stasis dermatitis. - Neurological Exam Neurological Exam: Alert, CN II-XII Intact, Oriented x3 - Skin Skin Exam: Dry, Normal Color, Warm Assessment and Plan - Assessment and Plan (Free Text) Assessment: 53 yo F with PMH of COPD, WINTER, BMI of 64, and DM2 (last A1c 6.9) presents with worsening b/l LE edema, erythema presents with inability to ambulate because of LE swelling. She is admitted for management of b/l LE cellulitis/wounds. Awaiting bariatric walker. Patient was able to ambulate with assistance from walker. Plan: B/L LE venous stasis -Continue day 3 of Augmentin and Levaquin -Afebrile, no leukocytosis -Wound cx from foot and leg positive for staph aureus and enterobacter -blood cx negative for 5 days -Podiatry consult placed for foot care/management of 2 foot ulcers - recs appreciated for draining ulcer -Procal 0.09 -B/l LE doppler US negative for DVT -BNP 78, Echo shows EF 59% and RVSP of 40, concerning for component of pulm. hypertension -ID consult - Dr. Perry- recs appreicated -C/W Furosemide 40 mg PO daily -PT recs appreciated, awaiting bariatric walker as patient is unsafe discharge due inability to currently afford bariatric walker and is at fall risk Hx of COPD -Xopenex PRN for SOB -No active issues -Echo 01/26 shows EF of 59%, technically limited study Hx of WINTER -Likely has component of obesity hypoventilation syndrome -Pulmonology consult Hx of Tobacco abuse -Nicotine patch PRN -Advise patient regularly on importance of abstinence Hx of DM2 - poor control -HgbA1c 9 -Continue ISS, sugars controlled Low Vitamin D -<12 in serum -50,000 Vit D supplementation once a week Morbid Obesity - BMI 64 -Enologist referral placed, all recs appreciated -Will need counseling regarding importance of weight loss PPX/Diet -Lovenox/protonix -HHD, diabetic diet Dispo: PT recommends HWS, but patient without current [place] insurance. Awaiting bariatric walker. Patient seen, case reviewed and plan approved by Dr. Lake. Nikita Boss, PGY-1 <Karis Lake - Last Filed: 02/01/19 16:30> Objective - Vital Signs/Intake and Output Vital Signs (last 24 hours): Temp Pulse Resp BP Pulse Ox 98.3 F 103 H 20 163/76 H 99 02/01/19 14:00 02/01/19 14:00 02/01/19 14:00 02/01/19 14:00 02/01/19 14:00 Intake and Output: 02/01/19 02/01/19 06:59 18:59 Intake Total 1200 480 Balance 1200 480 - Medications Medications: Current Medications Acetaminophen (Tylenol 325mg Tab) 650 mg PO Q6H PRN PRN Reason: Pain, Mild (1-3) Last Admin: 01/25/19 05:08 Dose: 650 mg Amoxicillin/Clavulanate Potassium (Augmentin 875 Mg-125 Mg Tab) 1 tab PO Q12 [facility]; Protocol Last Admin: 02/01/19 09:25 Dose: 1 tab Dextrose (Dextrose 50% Inj) 0 ml IV STAT PRN; Protocol PRN Reason: Hypoglycemia Protocol Enoxaparin Sodium (Lovenox) 40 mg SC DAILY [facility]; Protocol Last Admin: 02/01/19 09:25 Dose: 40 mg Ergocalciferol (Drisdol 50,000 Intl Units Cap) 1 cap PO Q7D [facility] Last Admin: 01/26/19 17:46 Dose: 1 cap Furosemide (Lasix) 40 mg PO DAILY [facility] Last Admin: 02/01/19 09:25 Dose: 40 mg Dextrose (Dextrose 5% In Water 1000 Ml) 1,000 mls @ 0 mls/hr IV .Q0M PRN; Protocol PRN Reason: Hypoglycemia Protocol Ibuprofen (Motrin Tab) 600 mg PO Q6H PRN PRN Reason: Pain, moderate (4-7) Last Admin: 01/29/19 20:42 Dose: 600 mg Insulin Human Lispro (Humalog Med) 0 units SC ACHS [facility]; Protocol Last Admin: 02/01/19 09:26 Dose: 1 unit Levalbuterol HCl (Xopenex) 1.25 mg IH Q2H PRN PRN Reason: Shortness of Breath Last Admin: 01/25/19 05:10 Dose: 1.25 mg Levofloxacin (Levaquin) 750 mg PO DAILY [facility]; Protocol Last Admin: 02/01/19 09:25 Dose: 750 mg Nicotine (Nicoderm Cq) 1 patch TD DAILY PRN PRN Reason: URGE TO SMOKE Last Admin: 01/30/19 09:39 Dose: 1 patch Nystatin (Nystop Topical Powder) 0 gm TOP BID [facility] Last Admin: 02/01/19 09:27 Dose: 1 applic Ondansetron HCl (Zofran Inj) 4 mg IVP Q6H PRN PRN Reason: Nausea/Vomiting Oxycodone HCl (Oxycodone Immediate Release Tab) 30 mg PO Q8H PRN PRN Reason: Pain, severe (8-10) Last Admin: 02/01/19 09:25 Dose: 30 mg Pantoprazole Sodium (Protonix Ec Tab) 40 mg PO 0600 [facility] Last Admin: 02/01/19 05:47 Dose: 40 mg - Labs Labs: 02/01/19 06:00 02/01/19 06:00 PT 14.0 SECONDS (9.4-12.5) H 01/25/19 02:23 INR 1.26 01/25/19 02:23 APTT 39.3 Seconds (26.9-38.3) H 01/25/19 02:23 Attending/Attestation - Attestation I have personally seen and examined this patient.: Yes I have fully participated in the care of the patient.: Yes I have reviewed all pertinent clinical information, including history, physical exam and plan: Yes Notes (Text): 02/01/19 16:22 53 year old female with past medical history of COPD, WINTER noncompliant with CPAP, morbid obesity, diabetes and history of medication noncompliance who presented with complaint of bilateral lower extremity swelling, erythema and pain. She is being followed by podiatry and ID for chronic leg wounds / cellulitis. She is on po levaquin and augmentin. Wound culture is growing staph aureus and enterobacter cloacae. Continue with wound care and dressing changes as per podiatry. Continue with lasix. Patient has been working with physical therapist for past few days. She has been unsafe discharge due to needing assistent device for ambulation and being unable to afford a bariatric walker. However now bariatric walker has been delivered to bedside. PT follow up requested for further physical therapy and training for d/c planning. Will discuss with CMx/Sw as she may been further home PT or VNA services upon discharge. Patient was counselled on weight loss and diet/lifestyle modifications. Counselled on medication and outpatient follow up compliance. Karis Lake MD Hospitalist.
--- NOTE | 2019-02-01 19:38 | CP.PCM.PN ---
Subjective - Date & Time of Evaluation Date of Evaluation: 02/01/19 Time of Evaluation: 17:15 - Subjective Subjective: Infectious Disease Follow Up: February 01, 2019 53yo female with PMHx of morbid obesity, BMI>60, COPD, WINTER, OHS, non compliant with CPAP, active smoker 1/2pk per day, presented with worsening LE edema. Pt states that she has not seen a physician in over year, has not taken any medications, and has been non compliant with CPAP; actively smoking. Pt reports she has gained 40-50lbs over the last year, and does not use her CPAP machine because of "malfunction with tubing". Right lower leg/foot wound growing multiple organisms. MSSA and Enterobacter in wound cultures. No new issues. Strangely enough, the patient seemed surprised at her large weight gains although her and other family member were saying that she eats way too much at home. Inability to walk more than a short distance but improving with PT. Awaiting bariatric walker. Objective - Vital Signs/Intake and Output Vital Signs (last 24 hours): Temp Pulse Resp BP Pulse Ox 98.3 F 103 H 20 163/76 H 99 02/01/19 14:00 02/01/19 14:00 02/01/19 14:00 02/01/19 14:00 02/01/19 14:00 Intake and Output: 02/01/19 02/02/19 18:59 06:59 Intake Total 480 Balance 480 - Medications Medications: Current Medications Acetaminophen (Tylenol 325mg Tab) 650 mg PO Q6H PRN PRN Reason: Pain, Mild (1-3) Last Admin: 01/25/19 05:08 Dose: 650 mg Amoxicillin/Clavulanate Potassium (Augmentin 875 Mg-125 Mg Tab) 1 tab PO Q12 JULIA; Protocol Last Admin: 02/01/19 09:25 Dose: 1 tab Dextrose (Dextrose 50% Inj) 0 ml IV STAT PRN; Protocol PRN Reason: Hypoglycemia Protocol Enoxaparin Sodium (Lovenox) 40 mg SC DAILY JULIA; Protocol Last Admin: 02/01/19 09:25 Dose: 40 mg Ergocalciferol (Drisdol 50,000 Intl Units Cap) 1 cap PO Q7D JULIA Last Admin: 01/26/19 17:46 Dose: 1 cap Furosemide (Lasix) 40 mg PO DAILY JULIA Last Admin: 02/01/19 09:25 Dose: 40 mg Dextrose (Dextrose 5% In Water 1000 Ml) 1,000 mls @ 0 mls/hr IV .Q0M PRN; Protocol PRN Reason: Hypoglycemia Protocol Ibuprofen (Motrin Tab) 600 mg PO Q6H PRN PRN Reason: Pain, moderate (4-7) Last Admin: 01/29/19 20:42 Dose: 600 mg Insulin Human Lispro (Humalog Med) 0 units SC ACHS [facility]; Protocol Last Admin: 02/01/19 16:58 Dose: 1 units Levalbuterol HCl (Xopenex) 1.25 mg IH Q2H PRN PRN Reason: Shortness of Breath Last Admin: 01/25/19 05:10 Dose: 1.25 mg Levofloxacin (Levaquin) 750 mg PO DAILY [facility]; Protocol Last Admin: 02/01/19 09:25 Dose: 750 mg Nicotine (Nicoderm Cq) 1 patch TD DAILY PRN PRN Reason: URGE TO SMOKE Last Admin: 01/30/19 09:39 Dose: 1 patch Nystatin (Nystop Topical Powder) 0 gm TOP BID [facility] Last Admin: 02/01/19 16:59 Dose: 1 applic Ondansetron HCl (Zofran Inj) 4 mg IVP Q6H PRN PRN Reason: Nausea/Vomiting Oxycodone HCl (Oxycodone Immediate Release Tab) 30 mg PO Q8H PRN PRN Reason: Pain, severe (8-10) Last Admin: 02/01/19 16:58 Dose: 30 mg Pantoprazole Sodium (Protonix Ec Tab) 40 mg PO 0600 [facility] Last Admin: 02/01/19 05:47 Dose: 40 mg - Labs Labs: 02/01/19 06:00 02/01/19 06:00 PT 14.0 SECONDS (9.4-12.5) H 01/25/19 02:23 INR 1.26 01/25/19 02:23 APTT 39.3 Seconds (26.9-38.3) H 01/25/19 02:23 - Constitutional Appears: Non-toxic, No Acute Distress, Chronically Ill - Head Exam Head Exam: ATRAUMATIC, NORMOCEPHALIC - Eye Exam Eye Exam: EOMI, PERRL Pupil Exam: NORMAL ACCOMODATION, PERRL - ENT Exam ENT Exam: Mucous Membranes Moist, Normal External Ear Exam, TM's Normal Bilaterally - Neck Exam Neck Exam: Full ROM, Normal Inspection - Respiratory Exam Respiratory Exam: Clear to Ausculation Bilateral, NORMAL BREATHING PATTERN. absent: Rales, Rhonchi, Wheezes - Cardiovascular Exam Cardiovascular Exam: REGULAR RHYTHM, RRR, +S1, +S2 - GI/Abdominal Exam GI & Abdominal Exam: Soft, Normal Bowel Sounds. absent: Distended, Tenderness - Extremities Exam Extremities Exam: Full ROM, Joint Swelling, Pedal Edema Additional comments: Vascular: DP/PT faintly palpable, CFT < 3 seconds, TG warm to warm, + 2 pitting edema appreciated to b/l lower extremities Ortho: MMT 4/5, pain upon palpation of R posterior calf Neuro: Gross sensation intact, protective sensation diminished Derm: B/L lower extremity weeping edema with superficial ulcerations. RLE= Superficial ulceration measuring approx 3 x 1.5 x .1 cm with mixed fibrotic /granular base noted to anterior lateral aspect of leg. + serous drainage, mild malodor, no purulence appreciated, no erythema, no cellulitis appreciated. Strong odor from right lower leg. LLE= superficial skin tears appreciated to anterior aspect of leg There is a good amount of serosaguinous drainage from the right lower extremity ulceration. - Neurological Exam Neurological Exam: Alert, Awake, CN II-XII Intact, Oriented x3 - Psychiatric Exam Psychiatric exam: Normal Affect, Normal Mood - Skin Additional comments: As above. Assessment and Plan - Assessment and Plan (Free Text) Assessment: 53 yo female with multiple medical issues that include DM, HTN, morbid obesity, and WINTER presenting with significant weight gain of 51 pounds in the past month and significant swelling of the bilateral lower extremities. Started on Zosyn and IV Vancomycin. Monitor renal function. Franco cultures pending. Wound c ultures pending but growing gram positive cocci in clusters and gram negative rods. Identification was MSSA and Enterobacter. Continue with Zosyn alone at this point while in hospital. Patient likely needs diuresis as well. Noted the patient has an abdominal mass on CT scan. Can consider use of oral Augmentin 875 mg BID and Levaquin 750 mg daily for 10- 14 days more when patient is ready for discharge. Supportive care. Still awaiting bariatric walker. Thank you for allowing me to participate in the care of the patient, we will follow with you.
[2019-02-02] MEDS: oxyCODONE 15 mg Immediate Release Tab PO PRN ×3 (01:23→21:21)
[2019-02-02] MEDS: Pantoprazole 40 mg EC Tab PO SCH (05:31)
[2019-02-02] MEDS: Insulin Lispro (humaLOG) MEDIUM Coverage SC SCH ×4 (08:33→21:18)
[2019-02-02] MEDS: Amoxicillin-Clav 875-125 mg Tab PO SCH ×2 (09:16→21:20)
[2019-02-02] MEDS: Enoxaparin 40 mg Syringe SC SCH (09:16)
[2019-02-02] MEDS: levoFLOXacin 750 MG TAB PO SCH (09:16)
[2019-02-02] MEDS ORDERED: Ammonium Lactate 12% Cream (140 g) TOP SCH (10:00)
--- NOTE | 2019-02-02 10:17 | CP.PCM.PN ---
<Terry Sidhu - Last Filed: 02/02/19 10:14> Subjective - Date & Time of Evaluation Date of Evaluation: 02/02/19 Time of Evaluation: 10:15 - Subjective Subjective: Podiatry progress note - Drs. Martinez/Monica 53F seen and evaluated this AM with Dr. Martinez. Patient sitting on side of bed with legs dependent. Per nurse she is noncompliant and continues to take her dressings off. Pain in lower extremity unchanged. Wounds continue to weep and saturate dressings however amount is improved. Denies n/v/f/d/c/sob/valle/cp. Objective - Vital Signs/Intake and Output Vital Signs (last 24 hours): Temp Pulse Resp BP Pulse Ox 99.9 F H 98 H 18 138/89 93 L 02/01/19 22:34 02/01/19 22:34 02/01/19 22:34 02/02/19 09:16 02/01/19 22:34 Intake and Output: 02/02/19 02/02/19 06:59 18:59 Intake Total 720 Balance 720 - Medications Medications: Current Medications Acetaminophen (Tylenol 325mg Tab) 650 mg PO Q6H PRN PRN Reason: Pain, Mild (1-3) Last Admin: 01/25/19 05:08 Dose: 650 mg Amoxicillin/Clavulanate Potassium (Augmentin 875 Mg-125 Mg Tab) 1 tab PO Q12 SC [facility]; Protocol Last Admin: 02/02/19 09:16 Dose: 1 tab Dextrose (Dextrose 50% Inj) 0 ml IV STAT PRN; Protocol PRN Reason: Hypoglycemia Protocol Enoxaparin Sodium (Lovenox) 40 mg SC DAILY JULIA; Protocol Last Admin: 02/02/19 09:16 Dose: 40 mg Ergocalciferol (Drisdol 50,000 Intl Units Cap) 1 cap PO Q7D JULIA Last Admin: 01/26/19 17:46 Dose: 1 cap Furosemide (Lasix) 40 mg PO DAILY JULIA Last Admin: 02/02/19 09:16 Dose: 40 mg Dextrose (Dextrose 5% In Water 1000 Ml) 1,000 mls @ 0 mls/hr IV .Q0M PRN; Protocol PRN Reason: Hypoglycemia Protocol Ibuprofen (Motrin Tab) 600 mg PO Q6H PRN PRN Reason: Pain, moderate (4-7) Last Admin: 01/29/19 20:42 Dose: 600 mg Insulin Human Lispro (Humalog Med) 0 units SC ACHS [facility]; Protocol Last Admin: 02/02/19 08:33 Dose: 1 units Lactic Acid (Lac-Hydrin 12% Cream (140 G)) 0 ea TOP DAILY [facility] Levalbuterol HCl (Xopenex) 1.25 mg IH Q2H PRN PRN Reason: Shortness of Breath Last Admin: 01/25/19 05:10 Dose: 1.25 mg Levofloxacin (Levaquin) 750 mg PO DAILY [facility]; Protocol Last Admin: 02/02/19 09:16 Dose: 750 mg Multi-Ingredient Ointment (Hydrophor Oint) 20 gm TOP Q6H [facility] Nicotine (Nicoderm Cq) 1 patch TD DAILY PRN PRN Reason: URGE TO SMOKE Last Admin: 01/30/19 09:39 Dose: 1 patch Nystatin (Nystop Topical Powder) 0 gm TOP BID [facility] Last Admin: 02/01/19 16:59 Dose: 1 applic Ondansetron HCl (Zofran Inj) 4 mg IVP Q6H PRN PRN Reason: Nausea/Vomiting Oxycodone HCl (Oxycodone Immediate Release Tab) 30 mg PO Q8H PRN PRN Reason: Pain, severe (8-10) Last Admin: 02/02/19 01:23 Dose: 30 mg Pantoprazole Sodium (Protonix Ec Tab) 40 mg PO 0600 [facility] Last Admin: 02/02/19 05:31 Dose: 40 mg - Labs Labs: 02/01/19 06:00 02/01/19 06:00 PT 14.0 SECONDS (9.4-12.5) H 01/25/19 02:23 INR 1.26 01/25/19 02:23 APTT 39.3 Seconds (26.9-38.3) H 01/25/19 02:23 - Constitutional Appears: Non-toxic - Head Exam Head Exam: ATRAUMATIC - Extremities Exam Additional comments: Vascular: DP/PT faintly palpable, CFT < 3 seconds, TG warm to warm, + 2 pitting edema appreciated to b/l lower extremities Ortho: MMT 4/5, pain upon palpation of R posterior calf Neuro: Gross sensation intact, protective sensation diminished Derm: B/L lower extremity weeping edema with superficial ulcerations. Lichenification appreciated RLE= Superficial ulceration measuring approx 3 x 1.5 x .1 cm with mixed fibrotic/granular base noted to anterior lateral aspect of leg. + serous drainage, mild malodor, no purulence appreciated, no erythema, no cellulitis appreciated Superficial ulceration #2 noted to medial ankle measuring approximately 1 x 1 x 0.1 cm with fibrogranular base and severe serous drainage present. LLE= no open lesions at this time, no erythema, no cellulitis - Neurological Exam Neurological Exam: Alert, Awake, Oriented x3 - Psychiatric Exam Psychiatric exam: Normal Affect Assessment and Plan - Assessment and Plan (Free Text) Assessment: 53F with 1) R lower extremity pain and weeping edema, 2) elongated and dystrophic nails Plan: Patient seen and evaluated with Dr. Martinez RLE wound culture reveals growth of Enterobacter, Staph aureus LE US taken; no DVT Local wound care; maxorb, DSD Educated on importance of elevating b/l lower extremities - patient continues to be noncompliant despite maximal education No plan for intervention Stable for discharge and outpatient f/u per podiatry Podiatry will continue to follow <Frances Martinez - Last Filed: 02/05/19 15:35> Objective - Vital Signs/Intake and Output Vital Signs (last 24 hours): Temp Pulse Resp BP Pulse Ox 97.9 F 99 H 20 148/79 96 02/03/19 06:00 02/03/19 06:00 02/03/19 06:00 02/03/19 06:00 02/03/19 06:00 - Labs Labs: 02/01/19 06:00 02/01/19 06:00 PT 14.0 SECONDS (9.4-12.5) H 01/25/19 02:23 INR 1.26 01/25/19 02:23 APTT 39.3 Seconds (26.9-38.3) H 01/25/19 02:23 Attending/Attestation - Attestation I have personally seen and examined this patient.: Yes I have fully participated in the care of the patient.: Yes I have reviewed all pertinent clinical information, including history, physical exam and plan: Yes
[2019-02-02] MEDS: Nystatin 100,000 Units/gm Topical Pow(15 gm) TOP SCH ×2 (11:54→18:50)
[2019-02-02] MEDS: Petrolatum-Mineral Oil Oint (100gm) TOP SCH ×3 (11:54→21:20)
[2019-02-02] MEDS: Ergocalciferol 50,000 Intl Units Cap PO SCH (13:40)
--- NOTE | 2019-02-02 13:45 | CP.PCM.DIS ---
<Nikita Boss - Last Filed: 02/02/19 14:00> Provider - Provider Date of Admission: 01/25/19 03:14 Attending physician: Loyd Astorga MD Primary care physician: Michael Consults: 01/25/19 03:32 Infectious Disease Consult Routine Comment: Consulting Provider: Dustin Perry Consulting Physician: Dustin Perry Reason for Consult: b/l LE cellulitis 01/25/19 04:11 Nursing Referral for Wound Care Routine Comment: Physician Instructions: Reason For Exam: b/l LE wounds, SDU on L posterior thigh 01/25/19 04:12 Podiatry Consult Routine Comment: Consulting Provider: Frances Martinez Consulting Physician: Frances Martinez Reason for Consult: R foot ulcer 01/25/19 04:45 Pulmonology Consult Routine Comment: Consulting Provider: Bakari Slater Consulting Physician: Bakari Slater Reason for Consult: Hx WINTER, obesity hypoventilation, hx COPD 01/25/19 06:34 Nursing Referral for Wound Care Routine Comment: Physician Instructions: Reason For Exam: 3 pressure injuries on right leg 01/25/19 06:40 Diabetic Education Referral Routine Comment: Physician Instructions: Reason For Exam: obesity Nursing Referral for Wound Care Routine Comment: Physician Instructions: Reason For Exam: pressure injuries on right leg x3 Time Spent in preparation of Discharge (in minutes): 45 Hospital Course - Lab Results Lab Results: Micro Results 01/25/19 03:10 Blood-Venous Blood Culture - Final NO GROWTH AFTER 5 DAYS 01/25/19 02:50 Blood-Venous Blood Culture - Final NO GROWTH AFTER 5 DAYS 01/25/19 02:50 Blood-Venous Gram Stain - Final TEST NOT PERFORMED 01/27/19 15:00 Ankle - Right Gram Stain - Final 01/27/19 15:00 Ankle - Right Wound Culture - Final Enterobacter Cloacae Ssp Cloac Staphylococcus Aureus 01/25/19 04:43 Foot - Right Gram Stain - Final 01/25/19 04:43 Foot - Right Wound Culture - Final Enterobacter Cloacae Ssp Cloac Staphylococcus Aureus 01/24/19 04:39 Leg - Right Gram Stain - Final 01/24/19 04:39 Leg - Right Wound Culture - Final Enterobacter Cloacae Ssp Cloac Staphylococcus Aureus 01/25/19 04:49 Thigh - Right Gram Stain - Final Most Recent Lab Values WBC 7.7 10^3/uL (4.5-11.0) 02/01/19 06:00 RBC 4.91 10^6/uL (3.5-6.1) 02/01/19 06:00 Hgb 11.8 g/dL (12.0-16.0) L 02/01/19 06:00 Hct 40.4 % (36.0-48.0) 02/01/19 06:00 MCV 82.3 fl (80.0-105.0) 02/01/19 06:00 MCH 24.0 pg (25.0-35.0) L 02/01/19 06:00 MCHC 29.2 g/dl (31.0-37.0) L 02/01/19 06:00 RDW 17.2 % (11.5-14.5) H 02/01/19 06:00 Plt Count 266 10^3/uL (120.0-450.0) 02/01/19 06:00 MPV 10.3 fl (7.0-11.0) 02/01/19 06:00 Neut % (Auto) 69.7 % (50.0-68.0) H 02/01/19 06:00 Lymph % (Auto) 11.7 % (22.0-35.0) L 02/01/19 06:00 Ulster % (Auto) 13.2 % (1.0-6.0) H 02/01/19 06:00 Eos % (Auto) 5.3 % (1.5-5.0) H 02/01/19 06:00 Baso % (Auto) 0.1 % (0.0-3.0) 02/01/19 06:00 Lymph # (Auto) 0.9 (1.2-3.4) L 02/01/19 06:00 Ulster # (Auto) 1.0 (0.1-0.6) H 02/01/19 06:00 Eos # (Auto) 0.4 (0.0-0.7) 02/01/19 06:00 Baso # (Auto) 0.01 K/mm3 (0.0-2.0) 02/01/19 06:00 Absolute Neuts (auto) 5.35 (1.4-6.5) 02/01/19 06:00 PT 14.0 SECONDS (9.4-12.5) H 01/25/19 02:23 INR 1.26 01/25/19 02:23 APTT 39.3 Seconds (26.9-38.3) H 01/25/19 02:23 pCO2 49 mm/Hg (35-45) H 01/25/19 09:15 pO2 57.0 mm/Hg (80-100) L 01/25/19 09:15 HCO3 29.7 mmol/L (21-28) H 01/25/19 09:15 ABG pH 7.39 (7.35-7.45) 01/25/19 09:15 ABG Total CO2 31.2 mmol.L (22-28) H 01/25/19 09:15 ABG O2 Saturation 93.7 % (95-98) L 01/25/19 09:15 ABG O2 Content 15.2 ML/dl (15-23) 01/25/19 09:15 ABG Base Excess 3.8 mmol/L (-2.0-3.0) H 01/25/19 09:15 ABG Hemoglobin 12.3 g/dL (11.7-17.4) 01/25/19 09:15 ABG Carboxyhemoglobin 5.7 % (0.5-1.5) H 01/25/19 09:15 POC ABG HHb (Measured) 5.9 % (0-5) H 01/25/19 09:15 ABG Methemoglobin 0.8 % (0.0-3.0) 01/25/19 09:15 ABG O2 Capacity 16.2 mL/dl (16-24) 01/25/19 09:15 Hgb O2 Saturation 87.6 % (95.0-98.0) L 01/25/19 09:15 FiO2 21.0 % 01/25/19 09:15 Sodium 138 mmol/L (132-148) 02/01/19 06:00 Potassium 4.3 mmol/L (3.6-5.0) 02/01/19 06:00 Chloride 96 mmol/L (98-107) L 02/01/19 06:00 Carbon Dioxide 35 mmol/L (21-33) H 02/01/19 06:00 Anion Gap 12 (10-20) 02/01/19 06:00 BUN 20 mg/dL (7-21) 02/01/19 06:00 Creatinine 0.9 mg/dl (0.7-1.2) 02/01/19 06:00 Est GFR ( Amer) > 60 02/01/19 06:00 Est GFR (Non-Af Amer) > 60 02/01/19 06:00 POC Glucose (mg/dL) 234 mg/dL (65-110) H 02/02/19 11:34 Random Glucose 183 mg/dL (70-110) H 02/01/19 06:00 Hemoglobin A1c 9.0 % (4.2-6.5) H 01/25/19 02:23 Calcium 9.7 mg/dL (8.4-10.5) 02/01/19 06:00 Phosphorus 3.6 mg/dL (2.5-4.5) 01/25/19 02:23 Magnesium 2.2 mg/dL (1.7-2.2) 01/25/19 02:23 Total Bilirubin 0.3 mg/dL (0.2-1.3) 02/01/19 06:00 AST 33 U/L (14-36) 02/01/19 06:00 ALT 24 U/L (7-56) 02/01/19 06:00 Alkaline Phosphatase 126 U/L (38-126) 02/01/19 06:00 Troponin I < 0.01 ng/mL 01/25/19 02:23 NT-Pro-B Natriuret Pep 78.2 pg/mL (0-450) 01/25/19 11:20 Total Protein 8.3 g/dL (5.8-8.3) 02/01/19 06:00 Albumin 4.0 g/dL (3.0-4.8) 02/01/19 06:00 Globulin 4.3 gm/dL 02/01/19 06:00 Albumin/Globulin Ratio 0.9 (1.1-1.8) L 02/01/19 06:00 Triglycerides 70 mg/dL (35-160) 01/25/19 02:23 Cholesterol 143 mg/dL (130-200) 01/25/19 02:23 LDL Cholesterol Direct 75 mg/dL (0-129) 01/25/19 02:23 HDL Cholesterol 35 mg/dL (29-60) 01/25/19 02:23 25-OH Vitamin D Total < 12.8 NG/ML (30.0-100.0) L 01/25/19 08:25 Procalcitonin 0.09 NG/ML (0.19-0.49) L 01/25/19 02:23 TSH 3rd Generation 2.01 mIU/mL (0.46-4.68) 01/25/19 08:25 - Hospital Course Hospital Course: Nikita Boss, PGY-1 Discharge Summary for Hospitalist Service Ms. Saleem is a 53-year-old female past medical history significant for COPD, obstructive sleep apnea noncompliant with CPAP, morbid obesity, type 2 diabetes, and noncompliance with medications that presented to the emergency room with bilateral lower extremity swelling, redness, and pain. Bilateral lower extremity vascular stasis, especially on right lower extremity wounds and right posterior thigh wound. Infectious Disease was consulted. Patient was placed on broad spectrum antibiotics which was then tapered to gram negative coverage and then after wound cultures positive for Enterobacter Cloacae and Staphylococcus aureus, patient was started on Levaquin and Augmentin. Blood cultures with no growth. Patient continued on Lasix and wound care with podiatry. Bilateral lower extremity venous dopplers were negative Procalcitonin 0.09. Physical therapy was ordered and recommended Home with services but patient is without insurance.For poorly controlled DM2, insulin sliding scale was utilized. HgbA1C was found to be 9. Diabetic education was provided during stay and on day of discharge. For her COPD and WINTER, patient was recommended to continue CPAP at bedtime and Xopenex as needed. Pulmonary was consulted. Patient has been counseled at length on tobacco cessation. 2d Echo per printing mechanist showed technically limited study, poor acoustic windows noted, chamber sizes appear within normal limits, no obvious valvular abnormality seen, EF approximately 59.2%. For tobacco abuse, patient again was counseled at length on cessation and given nicoderm patch. For noncompliance, patient was counseled daily on importance of taking medications and following with a primary care doctor. Fort patient Vitamin D deficiency, patient was repleted with 50,000 IU weekly, which was prescribed on discharge as well. For morbid Obesity with BMI 64, hand router operator was consulted. Diet and exercise were discussed at length with patient. For GI/DVT prophylaxis, patient received Lovenox/Protonix. Patient was educated to continue all medications, including Lasix, Vitamin D, Metformin, Levaquin and Augmentin as prescribed. A [facility] clinic appointment was made. Patient was recommended to follow up with PMD and podiatry within one week. Patient was counselled on weight loss and diet/lifestyle modifications, as well as medication and outpatient follow up compliance. Please have CPAP fitting performed at a sleep center of your choice. Patient was provided a bariatric walker and script for physical therapy to ambulation. Patient was receptive to education. Patient's daughter was set to pick patient up on day of discharge, and patient was in full agreement with discharge plan and in no acute distress. For full details of hospital stay, please consult EMR. Patient seen, case reviewed, and plan approved with Dr. Astorga. Nikita Boss, PGY-1 Discharge Exam - Additional Findings Additional findings: - Constitutional Appears: Non-toxic, No Acute Distress - Head Exam Head Exam: ATRAUMATIC, NORMAL INSPECTION - Eye Exam Eye Exam: EOMI Pupil Exam: PERRL - ENT Exam ENT Exam: Mucous Membranes Moist - Respiratory Exam Respiratory Exam: absent: Accessory Muscle Use, Respiratory Distress Additional comments: mild expiratory wheezing appreciated B/L - Cardiovascular Exam Cardiovascular Exam: REGULAR RHYTHM, +S1, +S2 - GI/Abdominal Exam GI & Abdominal Exam: Soft, Normal Bowel Sounds. absent: Guarding, Rigid, Tenderness Additional comments: morbidly obese abdomen - Extremities Exam Extremities Exam: absent: Calf Tenderness Additional comments: B/L leg venous stasis, dry skin appreciated, swollen with right medial foot lesion noted [id number], wrapped, extensive venous stasis dermatitis. - Neurological Exam Neurological Exam: Alert, CN II-XII Intact, Oriented x3 - Skin Skin Exam: Dry, Normal Color, Warm Discharge Plan - Discharge Medications Prescriptions: Ammonium Lactate 12% [Lac-Hydrin 12% Cream (140 g)] 1 tube TOP DAILY #1 tube Amoxicillin/Clavulanate [Augmentin 875 MG-125 MG Tab] 1 tab PO Q12 #20 tab Ergocalciferol [Drisdol 50,000 Intl Units Cap] 1 cap PO Q7D #4 cap Furosemide [Lasix] 40 mg PO DAILY #30 tab levoFLOXacin [Levaquin] 750 mg PO DAILY #10 tab metFORMIN [glucOPHAGE] 500 mg PO BID #30 tab - Follow Up Plan Condition: FAIR Disposition: HOME/ ROUTINE Instructions: Cellulitis (Skin Infection), Adult (DC), Cellulitis (DC) Additional Instructions: Please continue all medications, including Lasix, Vitamin D, Metformin and your two antibiotics as prescribed. Please follow up in the [facility] for your follow up appointment on 02/09 @ 230 pm. Please bring your ID and insurance card. If you are returning to [place], please follow up with your primary doctor there within 3-5 days. Please follow up in Dr. Anderson's office, your management manager, within one week. His # is . If you are returning to [place], please follow up with a management manager there within 3-5 days. You were counselled on weight loss and diet/lifestyle modifications. You were counselled on medication and outpatient follow up compliance. Please have CPAP fitting performed at a sleep center of your choice. You have been provided bariatric walker and physical therapy script. Should symptoms worsen, please visit nearest emergency department. Referrals: Frances Martinez DPM [Staff Provider] - Dustin Perry MD [Staff Provider] - <Loyd Astorga - Last Filed: 02/02/19 18:18> Provider - Provider Date of Admission: 01/25/19 03:14 Attending physician: Loyd Astorga MD Consults: 01/25/19 03:32 Infectious Disease Consult Routine Comment: Consulting Provider: Dustin Perry Consulting Physician: Dustin Perry Reason for Consult: b/l LE cellulitis 01/25/19 04:11 Nursing Referral for Wound Care Routine Comment: Physician Instructions: Reason For Exam: b/l LE wounds, SDU on L posterior thigh 01/25/19 04:12 Podiatry Consult Routine Comment: Consulting Provider: Frances Martinez Consulting Physician: Frances Martinez Reason for Consult: R foot ulcer 01/25/19 04:45 Pulmonology Consult Routine Comment: Consulting Provider: Bakari Slater Consulting Physician: Bakari Slater Reason for Consult: Hx WINTER, obesity hypoventilation, hx COPD 01/25/19 06:34 Nursing Referral for Wound Care Routine Comment: Physician Instructions: Reason For Exam: 3 pressure injuries on right leg 01/25/19 06:40 Diabetic Education Referral Routine Comment: Physician Instructions: Reason For Exam: obesity Nursing Referral for Wound Care Routine Comment: Physician Instructions: Reason For Exam: pressure injuries on right leg x3 Hospital Course - Lab Results Lab Results: Micro Results 01/25/19 03:10 Blood-Venous Blood Culture - Final NO GROWTH AFTER 5 DAYS 01/25/19 02:50 Blood-Venous Blood Culture - Final NO GROWTH AFTER 5 DAYS 01/25/19 02:50 Blood-Venous Gram Stain - Final TEST NOT PERFORMED 01/27/19 15:00 Ankle - Right Gram Stain - Final 01/27/19 15:00 Ankle - Right Wound Culture - Final Enterobacter Cloacae Ssp Cloac Staphylococcus Aureus 01/25/19 04:43 Foot - Right Gram Stain - Final 01/25/19 04:43 Foot - Right Wound Culture - Final Enterobacter Cloacae Ssp Cloac Staphylococcus Aureus 01/24/19 04:39 Leg - Right Gram Stain - Final 01/24/19 04:39 Leg - Right Wound Culture - Final Enterobacter Cloacae Ssp Cloac Staphylococcus Aureus 01/25/19 04:49 Thigh - Right Gram Stain - Final Most Recent Lab Values WBC 7.7 10^3/uL (4.5-11.0) 02/01/19 06:00 RBC 4.91 10^6/uL (3.5-6.1) 02/01/19 06:00 Hgb 11.8 g/dL (12.0-16.0) L 02/01/19 06:00 Hct 40.4 % (36.0-48.0) 02/01/19 06:00 MCV 82.3 fl (80.0-105.0) 02/01/19 06:00 MCH 24.0 pg (25.0-35.0) L 02/01/19 06:00 MCHC 29.2 g/dl (31.0-37.0) L 02/01/19 06:00 RDW 17.2 % (11.5-14.5) H 02/01/19 06:00 Plt Count 266 10^3/uL (120.0-450.0) 02/01/19 06:00 MPV 10.3 fl (7.0-11.0) 02/01/19 06:00 Neut % (Auto) 69.7 % (50.0-68.0) H 02/01/19 06:00 Lymph % (Auto) 11.7 % (22.0-35.0) L 02/01/19 06:00 Ulster % (Auto) 13.2 % (1.0-6.0) H 02/01/19 06:00 Eos % (Auto) 5.3 % (1.5-5.0) H 02/01/19 06:00 Baso % (Auto) 0.1 % (0.0-3.0) 02/01/19 06:00 Lymph # (Auto) 0.9 (1.2-3.4) L 02/01/19 06:00 Ulster # (Auto) 1.0 (0.1-0.6) H 02/01/19 06:00 Eos # (Auto) 0.4 (0.0-0.7) 02/01/19 06:00 Baso # (Auto) 0.01 K/mm3 (0.0-2.0) 02/01/19 06:00 Absolute Neuts (auto) 5.35 (1.4-6.5) 02/01/19 06:00 PT 14.0 SECONDS (9.4-12.5) H 01/25/19 02:23 INR 1.26 01/25/19 02:23 APTT 39.3 Seconds (26.9-38.3) H 01/25/19 02:23 pCO2 49 mm/Hg (35-45) H 01/25/19 09:15 pO2 57.0 mm/Hg (80-100) L 01/25/19 09:15 HCO3 29.7 mmol/L (21-28) H 01/25/19 09:15 ABG pH 7.39 (7.35-7.45) 01/25/19 09:15 ABG Total CO2 31.2 mmol.L (22-28) H 01/25/19 09:15 ABG O2 Saturation 93.7 % (95-98) L 01/25/19 09:15 ABG O2 Content 15.2 ML/dl (15-23) 01/25/19 09:15 ABG Base Excess 3.8 mmol/L (-2.0-3.0) H 01/25/19 09:15 ABG Hemoglobin 12.3 g/dL (11.7-17.4) 01/25/19 09:15 ABG Carboxyhemoglobin 5.7 % (0.5-1.5) H 01/25/19 09:15 POC ABG HHb (Measured) 5.9 % (0-5) H 01/25/19 09:15 ABG Methemoglobin 0.8 % (0.0-3.0) 01/25/19 09:15 ABG O2 Capacity 16.2 mL/dl (16-24) 01/25/19 09:15 Hgb O2 Saturation 87.6 % (95.0-98.0) L 01/25/19 09:15 FiO2 21.0 % 01/25/19 09:15 Sodium 138 mmol/L (132-148) 02/01/19 06:00 Potassium 4.3 mmol/L (3.6-5.0) 02/01/19 06:00 Chloride 96 mmol/L (98-107) L 02/01/19 06:00 Carbon Dioxide 35 mmol/L (21-33) H 02/01/19 06:00 Anion Gap 12 (10-20) 02/01/19 06:00 BUN 20 mg/dL (7-21) 02/01/19 06:00 Creatinine 0.9 mg/dl (0.7-1.2) 02/01/19 06:00 Est GFR ( Amer) > 60 02/01/19 06:00 Est GFR (Non-Af Amer) > 60 02/01/19 06:00 POC Glucose (mg/dL) 164 mg/dL (65-110) H 02/02/19 16:29 Random Glucose 183 mg/dL (70-110) H 02/01/19 06:00 Hemoglobin A1c 9.0 % (4.2-6.5) H 01/25/19 02:23 Calcium 9.7 mg/dL (8.4-10.5) 02/01/19 06:00 Phosphorus 3.6 mg/dL (2.5-4.5) 01/25/19 02:23 Magnesium 2.2 mg/dL (1.7-2.2) 01/25/19 02:23 Total Bilirubin 0.3 mg/dL (0.2-1.3) 02/01/19 06:00 AST 33 U/L (14-36) 02/01/19 06:00 ALT 24 U/L (7-56) 02/01/19 06:00 Alkaline Phosphatase 126 U/L (38-126) 02/01/19 06:00 Troponin I < 0.01 ng/mL 01/25/19 02:23 NT-Pro-B Natriuret Pep 78.2 pg/mL (0-450) 01/25/19 11:20 Total Protein 8.3 g/dL (5.8-8.3) 02/01/19 06:00 Albumin 4.0 g/dL (3.0-4.8) 02/01/19 06:00 Globulin 4.3 gm/dL 02/01/19 06:00 Albumin/Globulin Ratio 0.9 (1.1-1.8) L 02/01/19 06:00 Triglycerides 70 mg/dL (35-160) 01/25/19 02:23 Cholesterol 143 mg/dL (130-200) 01/25/19 02:23 LDL Cholesterol Direct 75 mg/dL (0-129) 01/25/19 02:23 HDL Cholesterol 35 mg/dL (29-60) 01/25/19 02:23 25-OH Vitamin D Total < 12.8 NG/ML (30.0-100.0) L 01/25/19 08:25 Procalcitonin 0.09 NG/ML (0.19-0.49) L 01/25/19 02:23 TSH 3rd Generation 2.01 mIU/mL (0.46-4.68) 01/25/19 08:25 Attending/Attestation - Attestation I have personally seen and examined this patient.: Yes I have fully participated in the care of the patient.: Yes I have reviewed all pertinent clinical information, including history, physical exam and plan: Yes Notes (Text): 02/02/19 18:13 Attending note; patient seen and examined with resident. Patient is alert and awake. Denies any fevers, chills. Denies any nausea, vomiting. Ambulating with bariatric walker. Patient is 53-year-old female past medical history significant for COPD, obstructive sleep apnea noncompliant with CPAP, morbid obesity, type 2 diabetes, and noncompliance with medications that presented to the emergency room with bilateral lower extremity swelling, redness, and pain. 1. Bilateral lower extremity cellulitis; improving significantly . Podiatry evaluation appreciated. Right lower extremity wounds, right posterior thigh wound. Improving. wound cultures positive for Enterobacter Cloacae and Staphylococcus aureus. Blood cultures with no growth. Continue Levaquin and Augmentin. Continue Lasix. Continue with wound care. Podiatry recommendations appreciated. Bilateral lower extremity venous dopplers negative. 2. Poorly controlled DM2. Continue metformin. HgbA1C 9. Continue to monitor accuchecks. Diabetic education. 3. COPD. WINTER. Continue CPAP at bedtime. Continue Xopenex as needed. Pulmonary recommendations appreciated. Patient has been counseled at length on tobacco cessation. 4. Tobacco abuse. Patient again counseled at length on cessation. Continue nicoderm. 5. Noncompliance. Patient has not been taking medications or following with a doctor for over a year. Patient being counseled daily on importance of taking medications and following with a primary care doctor. 6. Vitamin D deficiency. Continue 50,000 IU weekly. 7. Morbid Obesity. BMI 64. Shank Rander consulted. Diet and exercise discussed at length with patient. Patient was provided with bariatric walker. Case discussed with continuous pillowcase cutter in detail. Patient will be discharged home today. Patient will go back to [place] with her . Follow up with PMD in [place]. 02/02/19 18:18
[2019-02-02 16:56] VITALS: RESP 20
--- NOTE | 2019-02-02 23:48 | CP.PCM.PN ---
Subjective - Date & Time of Evaluation Date of Evaluation: 02/02/19 Time of Evaluation: 18:00 - Subjective Subjective: Infectious Disease Follow Up: February 02, 2019 53yo female with PMHx of morbid obesity, BMI>60, COPD, WINTER, OHS, non compliant with CPAP, active smoker 1/2pk per day, presented with worsening LE edema. Pt states that she has not seen a physician in over year, has not taken any medications, and has been non compliant with CPAP; actively smoking. Pt reports she has gained 40-50lbs over the last year, and does not use her CPAP machine because of "malfunction with tubing". Right lower leg/foot wound growing multiple organisms. MSSA and Enterobacter in wound cultures. No new issues. Strangely enough, the patient seemed surprised at her large weight gains although her and other family member were saying that she eats way too much at home. Inability to walk more than a short distance but improving with PT. Awaiting bariatric walker. Objective - Vital Signs/Intake and Output Vital Signs (last 24 hours): Temp Pulse Resp BP Pulse Ox 98.2 F 98 H 20 112/70 95 02/02/19 16:54 02/02/19 16:54 02/02/19 16:54 02/02/19 16:54 02/02/19 16:54 Intake and Output: 02/02/19 02/03/19 18:59 06:59 Intake Total 800 Balance 800 - Medications Medications: Current Medications Acetaminophen (Tylenol 325mg Tab) 650 mg PO Q6H PRN PRN Reason: Pain, Mild (1-3) Last Admin: 01/25/19 05:08 Dose: 650 mg Amoxicillin/Clavulanate Potassium (Augmentin 875 Mg-125 Mg Tab) 1 tab PO Q12 JULIA; Protocol Last Admin: 02/02/19 21:20 Dose: 1 tab Dextrose (Dextrose 50% Inj) 0 ml IV STAT PRN; Protocol PRN Reason: Hypoglycemia Protocol Enoxaparin Sodium (Lovenox) 40 mg SC DAILY JULIA; Protocol Last Admin: 02/02/19 09:16 Dose: 40 mg Ergocalciferol (Drisdol 50,000 Intl Units Cap) 1 cap PO Q7D JULIA Last Admin: 02/02/19 13:40 Dose: 1 cap Furosemide (Lasix) 40 mg PO DAILY JULIA Last Admin: 02/02/19 09:16 Dose: 40 mg Dextrose (Dextrose 5% In Water 1000 Ml) 1,000 mls @ 0 mls/hr IV .Q0M PRN; Protocol PRN Reason: Hypoglycemia Protocol Ibuprofen (Motrin Tab) 600 mg PO Q6H PRN PRN Reason: Pain, moderate (4-7) Last Admin: 01/29/19 20:42 Dose: 600 mg Insulin Human Lispro (Humalog Med) 0 units SC ACHS [facility]; Protocol Last Admin: 02/02/19 21:18 Dose: Not Given Lactic Acid (Lac-Hydrin 12% Cream (140 G)) 0 ea TOP DAILY [facility] Last Admin: 02/02/19 11:54 Dose: Not Given Levalbuterol HCl (Xopenex) 1.25 mg IH Q2H PRN PRN Reason: Shortness of Breath Last Admin: 01/25/19 05:10 Dose: 1.25 mg Levofloxacin (Levaquin) 750 mg PO DAILY [facility]; Protocol Last Admin: 02/02/19 09:16 Dose: 750 mg Multi-Ingredient Ointment (Hydrophor Oint) 20 gm TOP Q6H [facility] Last Admin: 02/02/19 21:20 Dose: Not Given Nicotine (Nicoderm Cq) 1 patch TD DAILY PRN PRN Reason: URGE TO SMOKE Last Admin: 01/30/19 09:39 Dose: 1 patch Nystatin (Nystop Topical Powder) 0 gm TOP BID [facility] Last Admin: 02/02/19 18:50 Dose: 1 applic Ondansetron HCl (Zofran Inj) 4 mg IVP Q6H PRN PRN Reason: Nausea/Vomiting Oxycodone HCl (Oxycodone Immediate Release Tab) 30 mg PO Q8H PRN PRN Reason: Pain, severe (8-10) Last Admin: 02/02/19 21:21 Dose: 30 mg Pantoprazole Sodium (Protonix Ec Tab) 40 mg PO 0600 [facility] Last Admin: 02/02/19 05:31 Dose: 40 mg - Labs Labs: 02/01/19 06:00 02/01/19 06:00 PT 14.0 SECONDS (9.4-12.5) H 01/25/19 02:23 INR 1.26 01/25/19 02:23 APTT 39.3 Seconds (26.9-38.3) H 01/25/19 02:23 - Constitutional Appears: Non-toxic, No Acute Distress, Chronically Ill - Head Exam Head Exam: ATRAUMATIC, NORMOCEPHALIC - Eye Exam Eye Exam: EOMI, PERRL Pupil Exam: NORMAL ACCOMODATION, PERRL - ENT Exam ENT Exam: Mucous Membranes Moist, Normal External Ear Exam, TM's Normal Bilaterally - Neck Exam Neck Exam: Full ROM, Normal Inspection - Respiratory Exam Respiratory Exam: Clear to Ausculation Bilateral, NORMAL BREATHING PATTERN. absent: Rales, Rhonchi, Wheezes - Cardiovascular Exam Cardiovascular Exam: REGULAR RHYTHM, RRR, +S1, +S2 - GI/Abdominal Exam GI & Abdominal Exam: Soft, Normal Bowel Sounds. absent: Distended, Tenderness - Extremities Exam Extremities Exam: Full ROM, Joint Swelling, Pedal Edema Additional comments: Vascular: DP/PT faintly palpable, CFT < 3 seconds, TG warm to warm, + 2 pitting edema appreciated to b/l lower extremities Ortho: MMT 4/5, pain upon palpation of R posterior calf Neuro: Gross sensation intact, protective sensation diminished Derm: B/L lower extremity weeping edema with superficial ulcerations. RLE= Superficial ulceration measuring approx 3 x 1.5 x .1 cm with mixed fibrotic/granular base noted to anterior lateral aspect of leg. + serous drainage, mild malodor, no purulence appreciated, no erythema, no cellulitis appreciated. Strong odor from right lower leg. LLE= superficial skin tears appreciated to anterior aspect of leg There is a good amount of serosaguinous drainage from the right lower extremity ulceration. - Neurological Exam Neurological Exam: Alert, Awake, CN II-XII Intact, Oriented x3 - Psychiatric Exam Psychiatric exam: Normal Affect, Normal Mood - Skin Additional comments: As above. Assessment and Plan - Assessment and Plan (Free Text) Assessment: 53 yo female with multiple medical issues that include DM, HTN, morbid obesity, and WINTER presenting with significant weight gain of 51 pounds in the past month and significant swelling of the bilateral lower extremities. Started on Zosyn and IV Vancomycin. Monitor renal function. Franco cultures pending. Wound cultures pending but growing gram positive cocci in clusters and gram negative rods. Identification was MSSA and Enterobacter. Continue with Zosyn alone at this point while in hospital. Patient likely needs diuresis as well. Noted the patient has an abdominal mass on CT scan. Can consider use of oral Augmentin 875 mg BID and Levaquin 750 mg daily for 10- 14 days more when patient is ready for discharge. Supportive care. Still awaiting bariatric walker. Thank you for allowing me to participate in the care of the patient, we will follow with you.
[2019-02-03 09:22] VITALS: BP 148/79; PULSE 99; TEMP 97.9; O2SAT 96
== END 2019-02-03 09:37 | disposition home or self-care (01) | DRG 383 ==
LOC: ED 01:31 → ERH 03:14 → 5RNO 03:47 → ERH 03:48 → 5RNO 04:55
PROVIDERS: ADMIT Internal Medicine; ATTEND Internal Medicine
PROC: 0HBRXZZ Excision of Toe Nail, External Approach (ICD-10-PCS; principal; 2019-02-01)
PROC: 0HBRXZZ Excision of Toe Nail, External Approach (ICD-10-PCS; 2019-02-01)
PROC: 0HBRXZZ Excision of Toe Nail, External Approach (ICD-10-PCS; 2019-02-01)
PROC: 0HBRXZZ Excision of Toe Nail, External Approach (ICD-10-PCS; 2019-02-01)
PROC: 0HBRXZZ Excision of Toe Nail, External Approach (ICD-10-PCS; 2019-02-01)
PROC: 0HBRXZZ Excision of Toe Nail, External Approach (ICD-10-PCS; 2019-02-01)
PROC: 0HBRXZZ Excision of Toe Nail, External Approach (ICD-10-PCS; 2019-02-01)
PROC: 0HBRXZZ Excision of Toe Nail, External Approach (ICD-10-PCS; 2019-02-01)
PROC: 0HBRXZZ Excision of Toe Nail, External Approach (ICD-10-PCS; 2019-02-01)
PROC: 0HBRXZZ Excision of Toe Nail, External Approach (ICD-10-PCS; 2019-02-01)
DX: L03.115 Cellulitis of right lower limb (principal); I11.0 Hypertensive heart disease with heart failure; I50.9 Heart failure, unspecified; E11.622 Type 2 diabetes mellitus with other skin ulcer; L03.116 Cellulitis of left lower limb; E11.65 Type 2 diabetes mellitus with hyperglycemia; L97.319 Non-pressure chronic ulcer of right ankle with unspecified severity; B95.61 Methicillin susceptible Staphylococcus aureus infection as the cause of diseases classified elsewhere; B96.89 Other specified bacterial agents as the cause of diseases classified elsewhere; E66.2 Morbid (severe) obesity with alveolar hypoventilation; M79.89 Other specified soft tissue disorders; F17.210 Nicotine dependence, cigarettes, uncomplicated; J44.9 Chronic obstructive pulmonary disease, unspecified; R19.00 Intra-abdominal and pelvic swelling, mass and lump, unspecified site; I87.8 Other specified disorders of veins; E55.9 Vitamin D deficiency, unspecified; I87.2 Venous insufficiency (chronic) (peripheral); L60.3 Nail dystrophy; Z68.44 Body mass index [BMI] 60.0-69.9, adult; Z79.84 Long term (current) use of oral hypoglycemic drugs; Z71.3 Dietary counseling and surveillance; Z91.14 Patient's other noncompliance with medication regimen